=== PATIENT | female | born 1940 | race Caucasian/White ===

== ENCOUNTER 2016-07-27 06:43 | Inpatient (IN) ==
[2016-07-27] MEDS ORDERED: Ondansetron 4 MG/2 ML VIAL IVP ONE (07:07)
--- NOTE | 2016-07-27 07:18 | Emergency Department Note ---
Disposition Condition: Fair Referrals: Britany Forrest MD [Primary Care Provider] - Forms: ED Satisfaction Letter Fall HPI - General Chief Complaint: ED Fall Stated Complaint: R hip pain/fall Time Seen by Provider: 07/27/16 06:48 Source: patient, EMS Mode of arrival: private vehicle Limitations: no limitations Nursing Notes Reviewed: Yes Vital Signs Reviewed: Yes - History of Present Illness HPI Narrative: 76-year-old female patient presents to the emergency department status post fall with complaint of right hip pain. Patient states that she was attempting to get out of bed in order to go to the kitchen to get a glass of water when she tripped falling on her right hip. She denies any known loss of consciousness, however is unsure if she did strike her head. Patient states that she has not been able to walk since this injury and called EMS to be brought to the emergency department for further evaluation. She denies taking any blood thinners besides the baby aspirin daily. Patient had a previous fall 8 months ago where she fractured her left hip. She denies any upper extremity pain. She denies any chest pain or shortness of breath. She denies any fever, chills, nausea or vomiting. She was not dizzy or lightheaded prior to her fall. 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 From: standing, out of bed Fall Witnessed: no Place Fall Occurred: home Loss of Consciousness: unsure Prolonged Down Time?: no Symptoms Prior to Fall: none Context: tripped/slipped Location of injury: head, hip Location of injury - extremities: Right: hip Severity: severe Quality: aching Associated symptoms (after fall): Reports: denies - Related Data Home Medications Medication Instructions Recorded Confirmed Citalopram [CeleXA] 20 mg PO HS 01/15/16 01/15/16 Levothyroxine [Synthroid] 50 mcg PO 0630 01/15/16 01/15/16 Metoprolol [Lopressor] 50 mg PO BID 01/15/16 01/15/16 Calcium Carbonate/Vitamin D3 1 each PO DAILY 07/27/16 07/27/16 [Calcium 500 + Vit D Caplet] Cholecalciferol (D-3) [Vitamin D] 2,000 unit PO DAILY 07/27/16 07/27/16 HYDROcodone/Acet 5/325 mg [[place] 1 tab PO BID PRN 07/27/16 07/27/16 5-325 mg] Omeprazole [PriLOSEC] 40 mg PO DAILY 07/27/16 07/27/16 Simvastatin [Zocor] 40 mg PO DAILY 07/27/16 07/27/16 Previous Rx's Medication Instructions Recorded Aspirin Enteric Coated [Aspirin EC] 325 mg PO BID #60 tablet. 01/20/16 amLODIPine [Norvasc] 5 mg PO DAILY #30 tablet 01/20/16 Allergies Allergy/AdvReac Type Severity Reaction Status Date / Time Oxycodone [From Percocet] Allergy Itching Verified 07/27/16 08:46 All systems ED: reviewed and negative except as stated. Constitutional: Denies: fever, chills Cardiovascular: Denies: chest pain, palpitations, dyspnea on exertion Respiratory: Denies: cough, dyspnea Gastrointestinal: Denies: abdominal pain, nausea, vomiting Musculoskeletal: Reports: arthralgia. Denies: back pain, neck pain Integumentary: Denies: rash, abrasion, lesions Neurological: Reports: headache Psychiatric: Denies: anxiety, depression, suicidal thoughts, homicidal thoughts Fall PMH - Past Medical History Medical history: Reports: diabetes, hyperlipidemia, hypertension Surgical history: Reports: hysterectomy Psychiatric history: Reports: no psych history - Social History Smoking Status: Never smoker Alcohol use: Reports: none Drug use: Reports: none Physical Exam - General Limitations: no limitations General appearance: alert, in no apparent distress - Head Head exam: atraumatic, normocephalic, normal inspection - Eye Eye exam: Present: normal appearance, PERRL - Neck Neck exam: Present: normal inspection, full ROM, trachea midline. Absent: tenderness, lymphadenopathy - Chest Chest inspection: Present: normal inspection, symmetric chest wall rise - Respiratory Respiratory exam: Present: normal lung sounds bilaterally. Absent: respiratory distress - Cardiovascular Cardiovascular exam: Present: regular rate, normal rhythm, normal heart sounds - Expanded Lower Extremity Exam Hip/Pelvis exam: Present: tenderness, internal rotation, shortening Gait: not tested/not observed - Back Exam Back exam: Present: normal inspection, full ROM. Absent: tenderness - Neurological Exam Neurological exam: Present: alert, oriented X3 - Psychiatric Psychiatric exam: Present: normal affect, normal mood - Skin Skin exam: Present: warm, dry, intact, normal color Course Vital Signs Temperature 98.9 F 07/27/16 06:45 Pulse Rate 81 07/27/16 06:45 Respiratory Rate 18 07/27/16 06:45 Blood Pressure 158/82 07/27/16 06:45 O2 Sat by Pulse Oximetry 99 07/27/16 06:45 Temperature 98.9 F 07/27/16 06:45 Pulse Rate 81 07/27/16 06:45 Respiratory Rate 18 07/27/16 06:45 Blood Pressure 158/82 07/27/16 06:45 O2 Sat by Pulse Oximetry 99 07/27/16 06:45 Oxygen Delivery Oxygen Delivery Room Air Fall - Radiology Data Radiology results reviewed: Yes I reviewed the patient's radiology results.
[2016-07-27] MEDS ORDERED: *HR* HYDROmorphone (PF) 1 MG/ML SYRINGE IVP ONE (07:51)
--- NOTE | 2016-07-27 08:18 | Emergency Department Note ---
Disposition Clinical Impression: Fracture of hip, right, closed Qualifiers: Encounter type: initial encounter Qualified Code(s): S72.001A - Fracture of unspecified part of neck of right femur, initial encounter for closed fracture Disposition: Admitted As Inpatient Condition: Fair Referrals: Britany Forrest MD [Primary Care Provider] - Forms: ED Satisfaction Letter General Adult HPI - General Chief complaint: ED Fall Stated complaint: R hip pain/fall Time Seen by Provider: 07/27/16 06:48 Source: patient, EMS Mode of arrival: private vehicle Limitations: no limitations Nursing Notes Reviewed: Yes Vital Signs Reviewed: Yes - History of Present Illness Pain Scale: 10 - Related Data Home Medications Medication Instructions Recorded Confirmed Citalopram [CeleXA] 20 mg PO HS 01/15/16 07/27/16 Levothyroxine [Synthroid] [place] [address]/15/16 07/27/16 Metoprolol [Lopressor] 50 mg PO BID 01/15/16 07/27/16 Calcium Carbonate/Vitamin D3 1 each PO DAILY 07/27/16 07/27/16 [Calcium 500 + Vit D Caplet] Cholecalciferol (D-3) [Vitamin D] 2,000 unit PO DAILY 07/27/16 07/27/16 HYDROcodone/Acet 5/325 mg [[place] 1 tab PO BID PRN 07/27/16 07/27/16 5-325 mg] Omeprazole [PriLOSEC] 40 mg PO DAILY 07/27/16 07/27/16 Simvastatin [Zocor] 40 mg PO DAILY 07/27/16 07/27/16 Previous Rx's Medication Instructions Recorded Aspirin Enteric Coated [Aspirin EC] 325 mg PO BID #60 tablet. 01/20/16 amLODIPine [Norvasc] 5 mg PO DAILY #30 tablet 01/20/16 Allergies Allergy/AdvReac Type Severity Reaction Status Date / Time Oxycodone [From Percocet] Allergy Itching Verified 07/27/16 08:46 Constitutional: Denies: fever, chills Cardiovascular: Denies: chest pain, palpitations, dyspnea on exertion Respiratory: Denies: cough, dyspnea Gastrointestinal: Denies: abdominal pain, nausea, vomiting Musculoskeletal: Reports: arthralgia. Denies: back pain, neck pain Integumentary: Denies: rash, abrasion, lesions Neurological: Reports: headache Psychiatric: Denies: anxiety, depression, suicidal thoughts, homicidal thoughts Past Medical History - Past Medical History Medical history: Reports: diabetes, hyperlipidemia, hypertension Surgical history: Reports: hysterectomy Psychiatric history: Reports: no psych history - Social History Smoking Status: Never smoker Smokeless Tobacco Status: No Alcohol use: Reports: none Drug use: Reports: none Physical Exam - General Limitations: no limitations General appearance: alert, in no apparent distress Course Vital Signs Temperature 98.9 F 07/27/16 06:45 Pulse Rate 81 07/27/16 06:45 Respiratory Rate 18 07/27/16 06:45 Blood Pressure 158/82 07/27/16 06:45 O2 Sat by Pulse Oximetry 99 07/27/16 06:45 Temperature 98.9 F 07/27/16 06:45 Pulse Rate 74 07/27/16 08:47 Respiratory Rate 18 07/27/16 08:47 Blood Pressure 140/80 07/27/16 08:47 O2 Sat by Pulse Oximetry 96 07/27/16 08:47 Oxygen Delivery Oxygen Delivery Room Air Medical Decision Making - MDM Narrative Medical decision making narrative: I examined this patient and my medical decision-making was reviewed with the PARKING LOT LABORER/PA/Advanced Practice Nurse/Resident Physician. I agree with the documented findings, disposition and treatment plan as described except to the extent set forth below. Patient comes in today and was seen by the DAVID Guevara, I agree with his evaluation and management plan, I supervised the patient's stay. Patient had a fall and she fractured her right hip. There is also a question of a fracture of the T spine abut pt has no pain there. We will discuss with orthopedics, admitted to the hospitalist and she is in agreement with this plan. Pain is controlled at this time no neuro deficits. - Lab Data Result diagrams: 07/27/16 09:21 07/27/16 09:21 Lab Results 07/27/16 07/27/16 07/27/16 Range/Units 09:21 09:21 09:21 WBC 11.2 H (4.3-11.1) K/mcL RBC 4.14 (3.82-4.97) M/mcL Hgb 12.7 (11.5-15.4) g/dL Hct 37.4 (35.3-44.9) % MCV 90.3 (83.0-100.0) fL MCH 30.7 (28.0-33.3) pg MCHC 34.0 (31.6-35.5) g/dL RDW 12.9 (11.5-14.5) % Plt Count 207 (140-400) K/mcL MPV 10.8 (9.4-12.4) fL Immature Gran % 0.4 (0-4) % Seg Neutrophils % 84.3 % Lymphocytes % 8.9 % Monocytes % 5.9 % Eosinophils % 0.2 % Basophils % 0.3 % Neutrophils # 9.5 H (1.6-8.9) K/mcL Lymphocytes # 1.0 (0.6-4.6) K/mcL Monocytes # 0.7 (0.0-1.3) K/mcL Eosinophils # 0.0 (0.0-0.6) K/mcL Basophils # 0.0 (0.0-0.2) K/mcL PT 11.0 (9.4-12.1) Seconds INR 1.0 APTT 25.8 L (26.0-36.0) Seconds Sodium 141 (136-145) mEq/L Potassium 3.3 L (3.5-4.5) mEq/L Chloride 107 (98-109) mEq/L Carbon Dioxide 24 (19-29) mEq/L BUN 25 H (7-20) mg/dL Creatinine 1.23 H (0.57-1.11) mg/dL Est GFR ( Amer) 51 L (> 60) Est GFR (Non-Af Amer) 42 L (> 60) BUN/Creatinine Ratio 20 (6-26) Glucose 208 H (70-99) mg/dL Calculated Osmolality 302 H (280-300) Calcium 9.9 (8.6-10.8) mg/dL Urine Color (Yellow) Urine Clarity (Clear) Urine pH (5.0-8.0) pH Units Ur Specific [place] (1.010-1.025) Urine Protein (Neg-Trace) mg/dL Urine Glucose (UA) (Normal) mg/dL Urine Ketones (Negative) mg/dL Urine Blood (Negative) Urine Nitrite (Negative) Urine Bilirubin (Negative) Urine Urobilinogen (Normal) mg/dL Ur Leukocyte Esterase (Negative) Urine Microscopic RBC (0-3) per hpf Urine Microscopic WBC (0-3) per hpf Ur Squamous Epith Cells (None-Few) per lpf Urine Bacteria (None-Few) per hpf Hyaline Casts (None-Few) per lpf Ur Culture Indicated? (NO) 07/27/16 Range/Units 09:57 WBC (4.3-11.1) K/mcL RBC (3.82-4.97) M/mcL Hgb (11.5-15.4) g/dL Hct (35.3-44.9) % MCV (83.0-100.0) fL MCH (28.0-33.3) pg MCHC (31.6-35.5) g/dL RDW (11.5-14.5) % Plt Count (140-400) K/mcL MPV (9.4-12.4) fL Immature Gran % (0-4) % Seg Neutrophils % % Lymphocytes % % Monocytes % % Eosinophils % % Basophils % % Neutrophils # (1.6-8.9) K/mcL Lymphocytes # (0.6-4.6) K/mcL Monocytes # (0.0-1.3) K/mcL Eosinophils # (0.0-0.6) K/mcL Basophils # (0.0-0.2) K/mcL PT (9.4-12.1) Seconds INR APTT (26.0-36.0) Seconds Sodium (136-145) mEq/L Potassium (3.5-4.5) mEq/L Chloride (98-109) mEq/L Carbon Dioxide (19-29) mEq/L BUN (7-20) mg/dL Creatinine (0.57-1.11) mg/dL Est GFR ( Amer) (> 60) Est GFR (Non-Af Amer) (> 60) BUN/Creatinine Ratio (6-26) Glucose (70-99) mg/dL Calculated Osmolality (280-300) Calcium (8.6-10.8) mg/dL Urine Color Yellow (Yellow) Urine Clarity Clear (Clear) Urine pH 7.5 (5.0-8.0) pH Units Ur Specific [place] 1.021 (1.010-1.025) Urine Protein Trace (Neg-Trace) mg/dL Urine Glucose (UA) Normal (Normal) mg/dL Urine Ketones Trace H (Negative) mg/dL Urine Blood Negative (Negative) Urine Nitrite Negative (Negative) Urine Bilirubin Negative (Negative) Urine Urobilinogen Normal (Normal) mg/dL Ur Leukocyte Esterase Negative (Negative) Urine Microscopic RBC 0-3 (0-3) per hpf Urine Microscopic WBC 0-3 (0-3) per hpf Ur Squamous Epith Cells Moderate H (None-Few) per lpf Urine Bacteria None Seen (None-Few) per hpf Hyaline Casts None Seen (None-Few) per lpf Ur Culture Indicated? NO (NO)
[2016-07-27 09:31] LABS: Basophils % 0.3 %; Eosinophils % 0.2 %; Hematocrit 37.4 % (35.3-44.9); Hemoglobin 12.7 g/dL (11.5-15.4); Immature Granulocytes % 0.4 % (0-4); Lymphocytes % 8.9 %; Mean Corpuscular Hemoglobin 30.7 pg (28.0-33.3); Mean Corpuscular Volume 90.3 fL (83.0-100.0); Mean Platelet Volume 10.8 fL (9.4-12.4); Monocytes # 0.7 K/mcL (0.0-1.3); Monocytes % 5.9 %; Neutrophils # 9.5 K/mcL (1.6-8.9); Platelet Count 207 K/mcL (140-400); Red Blood Count 4.14 M/mcL (3.82-4.97); Red Cell Distribution Width 12.9 % (11.5-14.5); Segmented Neutrophils % 84.3 %
--- NOTE | 2016-07-27 09:36 | Orthopedic Consult Note ---
Date of Encounter: 07/27/16 Time of Encounter: 09:34 Assessment and Plan (1) Subcapital fracture of right femur Current Visit: Yes Status: Acute Patient is doing well, pain controlled. Stable. XRAYS reviewed with patient and family. Because of pain and limitations with mobility; surgical optimization recommended. Plan for a Right Hip Hemiarthroplasty today with . Consent was reviewed, explained and signed by patient with family in the room. All questions were answered. She had a Left Hip Hemiarthroplasty in December, and recovered very well with this. NPO. Continue pain control. DVT prophylaxis with EPCDs. Bedrest, NWB to Right side for now. Catheter needed. Admitted to hospitalist for pre-operative management. No significant cardiac history. History of smoking. 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 Forrest is a 76 year old female, presents to the emergency department status post fall with complaint of right hip pain. Patient states that she was attempting to get out of bed in order to go to the kitchen to get a glass of water when she tripped falling on her right hip. She denies any known loss of consciousness, however is unsure if she did strike her head. Patient states that she has not been able to walk since this injury and called EMS to be brought to the emergency department for further evaluation. She denies taking any blood thinners besides the baby aspirin daily. Patient had a previous fall 7 months ago, had a Left Hip Hemiarthroplasty and Wrist ORIF, performed by and . Progressing well and tolerated these procedures well with no complications. She denies any upper extremity pain. She denies any chest pain or shortness of breath. She denies any fever, chills , nausea or vomiting. She was not dizzy or lightheaded prior to her fall. Past Med Surg Social Fam HX - Past Medical History Medical history: diabetes, hyperlipidemia, hypertension Psychiatric history: no psych history - Past Surgical History Surgical History: hysterectomy - Social History Smoking Status: Never smoker Smokeless Tobacco Status: No Alcohol use: none Drug use: none - Family History Mother Living Status: Father Living Status: Hx Family Cancer: Yes Medications and Allergies Citalopram [CeleXA] 20 mg PO HS 01/15/16 [History] Levothyroxine [Synthroid] 50 mcg PO 0630 01/15/16 [History] Metoprolol [Lopressor] 50 mg PO BID 01/15/16 [History] Aspirin Enteric Coated [Aspirin EC] 325 mg PO BID #60 tablet. 01/20/16 [Rx] amLODIPine [Norvasc] 5 mg PO DAILY #30 tablet 01/20/16 [Rx] Calcium Carbonate/Vitamin D3 [Calcium 500 + Vit D Caplet] 1 each PO DAILY [History] Cholecalciferol (D-3) [Vitamin D] 2,000 unit PO DAILY 07/27/16 [History] HYDROcodone/Acet 5/325 mg [[place] 5-325 mg] 1 tab PO BID PRN 07/27/16 [History] Omeprazole [PriLOSEC] 40 mg PO DAILY 07/27/16 [History] Simvastatin [Zocor] 40 mg PO DAILY 07/27/16 [History] Allergies Oxycodone [From Percocet] Allergy (Verified 07/27/16 08:46) Itching All Systems Reviewed: A 10-system review of systems was performed and is negative for pertinent findings except as documented above in the HPI. - Constitutional Constitutional: as per HPI, frequent falls - Cardiovascular Cardiovascular: as per HPI, no chest pain, no dyspnea, no syncope - Respiratory Respiratory: as per HPI, dyspnea on exertion, no cough, no dyspnea - Musculoskeletal Musculoskeletal: as per HPI Physical Exam - Constitutional Vitals: Temp Pulse Resp BP Pulse Ox 98.9 F 74 18 140/80 96 07/27/16 06:45 07/27/16 08:47 07/27/16 08:47 07/27/16 08:47 07/27/16 08:47 - Fracture right hip Appearance: swelling, other (RLE shortened and ER) Distal extremity neurovascularly intact: Yes Proximal joint involvement: No Distal joint involvement: No Results - Labs Labs: Vitals Normal, awaiting labs. XRAYS: Right minimally displaced right subcapital fracture. CT Head: reviewed - Diagnostic results Hip x-ray: report reviewed, image reviewed Consult Discharge Plan - Plan Referrals: Britany Forrest MD [Primary Care Provider] -
[2016-07-27 09:46] LABS: Calcium 9.9 mg/dL (8.6-10.8); Potassium 3.3 mEq/L (3.5-4.5)
--- NOTE | 2016-07-27 09:48 | Internal Med History&Physical ---
Date of Encounter: 07/27/16 Time of Encounter: 09:15 Assessment and Plan (1) Subcapital fracture of right femur Current visit: Yes Status: Acute Patient found to have right subcapital femoral fracture on XR. This appears to be a mechanical fall. No signs of CVA/TIA, anemia, or infection. No history of significant heart disease, other than hypertension. No history of lung disease. Will clear patient for surgery for repair per ortho. Leukocytosis seen in patient likely reactive given patient trauma Consult to orthopedics Obtain 12 lead EKG UA Continue to monitor labs Pain control with Dilaudid 1 mg Q4 prn NPO for surgery IVF at 75 ml/hr Zofran Pantoprazole (2) HTN (hypertension) Current visit: No Status: Chronic Continue home medications when patient taking PO Amlodipine at 5 mg daily metoprolol at 50 mg daily Qualifiers: Hypertension type: essential hypertension Qualified Code(s): I10 - Essential (primary) hypertension (3) Chronic kidney disease Current visit: Yes Status: Acute Patient GFR slightly worse today than her baseline, but not significantly so. IVF with NS at 75 ml/hr avoid nephrotoxic agents continue to monitor renal function with daily labs Qualifiers: Chronic kidney disease stage: stage 3 (moderate) Qualified Code(s): N18.3 - Chronic kidney disease, stage 3 (moderate) (4) Elevated blood sugar Current visit: Yes Status: Acute Patient has a history of being pre-diabetic and on no home medications. She presents with an elevated blood sugar this morning. This could be due to this being a random blood sugar sample or a reaction given her recent trauma. 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 She has been on synthroid since then. Will continue patient home dose synthroid at 50 mcg daily (6) S/P hip hemiarthroplasty Current visit: No Status: Acute Patient continues to have chronic pain following her hip repair and broken wrist in late December last year for which she takes [place] at home. Will continue pain control for new right hip fracture as above (7) DVT prophylaxis Current visit: Yes Status: Acute EPCDs Internal Medicine - H&P: HPI Chief complaint: Fall and right hip fracture Admitted From: Home Plans for Post Hospital Care: Transfer Residential Facility History of present illness: Ms. Forrest is a 76 year old female who presents to [facility] this morning after suffering a right hip fracture. She reports that she was waking up from bed and fell next to her bed this morning and had severe right hip pain. She reports that she thinks it was a mechanical fall and does not report losing consciousness, but states that she is unable to remember the fall. Her son reports that this exact same scenario has happened before, resulting in her breaking her left hip previously (that she then needed repairs). She denies having any loss of consciousness or hitting her head. She denies having been sick recently, feeling faint, temporary losses of consciousness recently, or any numbness/tingling. She states that prior to this event she was feeling well without any recent illnesses. 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) Psychiatric history: no psych history - Past Surgical History Surgical History: breast surgery (right mastectomy), hysterectomy, orthopedic, other (left hip hemiarthoplasty), thyroidectomy - Social History Smoking Status: Never smoker Smokeless Tobacco Status: No Alcohol use: none Drug use: none - Family History Mother Living Status: Father Living Status: Hx Family Cancer: Yes Internal Medicine - H&P: Meds Citalopram [CeleXA] 20 mg PO HS 01/15/16 [History] Levothyroxine [Synthroid] 50 mcg PO 0630 01/15/16 [History] Metoprolol [Lopressor] 50 mg PO BID 01/15/16 [History] Aspirin Enteric Coated [Aspirin EC] 325 mg PO BID #60 tablet. 01/20/16 [Rx] amLODIPine [Norvasc] 5 mg PO DAILY #30 tablet 01/20/16 [Rx] Calcium Carbonate/Vitamin D3 [Calcium 500 + Vit D Caplet] 1 each PO DAILY [History] Cholecalciferol (D-3) [Vitamin D] 2,000 unit PO DAILY 07/27/16 [History] HYDROcodone/Acet 5/325 mg [[place] 5-325 mg] 1 tab PO BID PRN 07/27/16 [History] Omeprazole [PriLOSEC] 40 mg PO DAILY 07/27/16 [History] Simvastatin [Zocor] 40 mg PO DAILY 07/27/16 [History] Allergies Oxycodone [From Percocet] Allergy (Verified 07/27/16 08:46) Itching - Constitutional Constitutional: falls, no anorexia, no chills, no fatigue, no fever(s), no weakness - EENT Eyes: no blurry vision, no diplopia, no loss of vision - Cardiovascular Cardiovascular ROS IM: no chest pain, no dyspnea, no lightheadedness - Respiratory Respiratory: no cough, no dyspnea, no pain on inspiration - Gastrointestinal Gastrointestinal: abdominal pain (mild, chronic), diarrhea (chronic), no constipation, no hematochezia, no melena, no nausea, no vomiting - Genitourinary Genitourinary: no dysuria, no hematuria - Musculoskeletal Musculoskeletal ROS IM: as per HPI, other (right hip pain), no neck pain, no numbness, no tingling - Neurological Neurological ROS: disequilibrium (mild, chronic), dizziness (mild, chronic), headache(s), memory loss (mild, chronic), no focal weakness, no loss of vision, no tingling, no weakness - Endocrine Additional comments: on synthroid - Constitutional Vitals: Temp Pulse Resp BP Pulse Ox 98.9 F 74 18 140/80 96 07/27/16 06:45 07/27/16 08:47 07/27/16 08:47 07/27/16 08:47 07/27/16 08:47 Exam: General: Cooperative, pleasant, no acute distress, alert and oriented 3, answers questions appropriately HEENT: Normocephalic, atraumatic, neck supple, to midline cervical/upper thoracic tenderness, trachea midline, Conjunctiva pink, sclera anicteric, EOMI , PERRL, oral mucosa moist, no orophargeal erythema or exudates Respiratory: No accessory muscle usage, clear to auscultation bilaterally, no wheezes/rhonchi/rales appreciated Cardiovascular: Regular rate and rhythm, S1 and S2 present, no murmurs/rubs/ gallops/clicks appreciated GI/abdominal: Nondistended, mild tenderness to palpation, soft, normal bowel sounds, no peritoneal signs Extremities: No calf tenderness, noncyanotic, no pedal edema appreciated, warm, lower extremity pulses palpable and symmetrical, increased fullness over right hip, no ecchymosis or hematoma observed Neurological: Alert and oriented 3, no facial droop, no focal deficits, sensation to light touch intact in b/l LE, CN 2-12 intact, Skin: Dry, intact, normal color Internal Med - H&P Results - Labs CBC & Chem 7: 07/27/16 09:21 07/27/16 09:21 Labs: Short CBC 07/27/16 Range/Units 09:21 WBC 11.2 H (4.3-11.1) K/mcL Hgb 12.7 (11.5-15.4) g/dL Hct 37.4 (35.3-44.9) % Plt Count 207 (140-400) K/mcL Neutrophils # 9.5 H (1.6-8.9) K/mcL - Impressions ITS Impressions Cervical Spine CT 07/27/16 07:07 IMPRESSION: No acute abnormality of the cervical spine. 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 Mild concavity of the superior endplate of T2 which is new from chest CT 07/02/2014, but age indeterminate. Correlation for point tenderness is recommended. If there is point tenderness at this level, then MRI could be obtained for further evaluation. D/ / Chiquis Rodriguez MD / Chiquis Rodriguez MD Interpreting Provider: Chiquis Rodriguez MD Head CT 07/27/16 07:07 IMPRESSION: No acute intracranial abnormality. D/ / Virgil Pisano MD / Virgil Pisano MD Interpreting Provider: Virgil Pisano MD Hip X-Ray 07/27/16 07:07 IMPRESSION: Acute mildly displaced subcapital right femoral neck fracture. D/ / 07/27/2016 08:59:42 Hali Sauceda MD / Gayatri Oviedo Interpreting Provider: Hali Sauceda MD
[2016-07-27] MEDS ORDERED: Ondansetron 4 MG/2 ML VIAL IVP PRN ×3 (09:52→19:27)
[2016-07-27] MEDS ORDERED: Naloxone 0.4 MG/ML INJ IVP PRN ×2 (09:52→19:27)
[2016-07-27] MEDS ORDERED: *HR* HYDROmorphone (PF) 1 MG/ML SYRINGE IVP PRN ×3 (09:52→19:27)
[2016-07-27] MEDS ORDERED: *HR* Morphine 2 MG/ML SYRINGE IVP PRN (09:52)
[2016-07-27 09:57] LABS: Activated Partial Thrombo Time 25.8 Seconds (26.0-36.0)
[2016-07-27] MEDS ORDERED: 0.9 % Sodium Chloride 1,000 ML IVC SCH ×2 (10:00→19:27)
[2016-07-27] MEDS ORDERED: Sennosides/Docusate Sodium TABLET PO PRN ×2 (10:01→19:27)
[2016-07-27] MEDS ORDERED: Potassium Chloride 20 MEQ, Lidocaine 1% 2 ML in D5% in Water 250 ML IVPB ONE (10:32)
[2016-07-27 11:08] LABS: Bilirubin,Urine Negative (Negative); Blood,Urine Negative (Negative); Clarity,Urine Clear (Clear); Color,Urine Yellow (Yellow); Glucose,Urine (UA) Normal (Normal); Ketones,Urine Trace mg/dL (Negative); Leukocyte Esterase,Urine Negative (Negative); Nitrite,Urine Negative (Negative); PH,Urine 7.5 pH Units (5.0-8.0); Protein,Urine Trace mg/dL (Neg-Trace); Specific Gravity,Urine 1.021 (1.010-1.025); Urobilinogen,Urine Normal (Normal)
[2016-07-27 11:10] LABS: Bacteria,Urine None Seen per hpf (None-Few); Hyaline Casts,Urine None Seen per lpf (None-Few); RBC,Urine 0-3 per hpf (0-3); Squamous Epithelial Cell,Urine Moderate per lpf (None-Few); WBC,Urine 0-3 per hpf (0-3)
--- NOTE | 2016-07-27 11:16 | Anesthesia Evaluation PreOp ---
Date of Encounter: 07/27/16 Time of Encounter: 11:12 - Past History Planned Operation: r hip tima; hx per chart/fam Cardiac History: HTN, Hyperlipidemia, Other (echo 2014: ef 55, nl rv, no valve dysfct) Pulmonary History: Former smoker Other Medical History: Renal (ckd), Thyroid, GERD, Other (breast ca) Anesthesia History: No Prior Anesthetic Complications, Past Anesthesia (thyroid , hip tima, r mastectomy, hysterect) Alcohol Use: none Drug use: none Medications and Allergies Citalopram [CeleXA] 20 mg PO HS 01/15/16 [History] Levothyroxine [Synthroid] 50 mcg PO 0630 01/15/16 [History] Metoprolol [Lopressor] 50 mg PO BID 01/15/16 [History] Aspirin Enteric Coated [Aspirin EC] 325 mg PO BID #60 tablet. 01/20/16 [Rx] amLODIPine [Norvasc] 5 mg PO DAILY #30 tablet 01/20/16 [Rx] Calcium Carbonate/Vitamin D3 [Calcium 500 + Vit D Caplet] 1 each PO DAILY [History] Cholecalciferol (D-3) [Vitamin D] 2,000 unit PO DAILY 07/27/16 [History] HYDROcodone/Acet 5/325 mg [[place] 5-325 mg] 1 tab PO BID PRN 07/27/16 [History] Omeprazole [PriLOSEC] 40 mg PO DAILY 07/27/16 [History] Simvastatin [Zocor] 40 mg PO DAILY 07/27/16 [History] Allergies Oxycodone [From Percocet] Allergy (Verified 07/27/16 08:46) Itching - Meds/Allergy Pre-op Review Medications Reviewed: Yes Allergies Reviewed: Yes Beta Blockers on Current Med List: Yes If Beta Blockers taken, Date/Time (Last Dose taken): metoprolol Anesthesia Results - Labs 07/27/16 09:21 07/27/16 09:21 - Imaging EKG: report reviewed (sr, pvc, lvh) Additional studies: head cT neg Anesthesia Exam Vital Signs/O2 Sat/Glucose, Most Current Pulse Resp BP Pulse Ox 07/27/16 08:47 74 18 140/80 96 Height: 1.57 Weight: 63 NPO (# of Hours): >8 - HEENT Pupil (Motor): Pupils equal, EOMI - TESTER WASTE DISPOSAL LEAKAGE LOC: Confused, Disoriented TESTER WASTE DISPOSAL LEAKAGE Motor: Deficit RUE, Deficit LUE, Deficit RLE, Deficit LLE, Deficit Face TESTER WASTE DISPOSAL LEAKAGE Sensory: Deficit: RUE, LUE, RLE, LLE, Face - Cardiac Rhythm: Regular Murmur: None - Pulmonary Breath Sounds: bilateral Clear Respiratory Effort: Symmetrical Anesthesia Assess/Plan ASA Score: 4 Modified [place] Scale for Level of Consciousness: Anixous, agitated or restless Anesthetic Plan: General Monitoring Plan: Standard Monitors Recovery Plan: PACU
--- NOTE | 2016-07-27 12:34 | Event Note ---
Date of Encounter: 07/27/16 Time of Encounter: 12:31 Patient seen and examined with bilingual medical receptionist. She presents today after a fall, does not recall clear circumstances of the fall but thinks it is probably mechanical. The patient has a right hip fracture. She will go for surgery. We were asked to see the patient for preoperative clearance. Patient functional capacity is poor. she can walk only one block with her walker. She has multiple clinical predictors including hypertension, chronic kidney disease stage III and borderline diabetes. Orthopedic surgeries are intermediate cardiac risk surgeries. Because of the poor functional capacity and multiple clinical predictors patient will be at moderate risk for perioperative cardiac complications. Patient had a coronary angiogram in 2009 showed normal coronary' s. Patient does not require any further preoperative cardiac testing prior to surgery. Gentle hydration. Check urine analysis. She is full code.
[2016-07-27] MEDS ORDERED: *HR* Labetalol 100 MG/20 ML MDV IVP PRN (17:29)
--- NOTE | 2016-07-27 17:36 | Orthopedic Operative Note ---
Date of procedure: 07/27/16 Pre-op diagnosis: right femoral neck fracture Post-op diagnosis: same Procedure: Procedure: Right hip hemiarthroplasty Estimated blood loss: 200 cc Hardware: Metal replacement Biomet bipolar: 13 stem 28+6 head 45 bipolar Procedural Notes: His placed femoral neck fracture Operative procedure: The patient was brought to the operating room and placed on the operating room table. After general anesthesia was administered the patient was placed in the lateral decubitus position with the operative leg up. All pressure points were padded appropriately and the head was stabilized in the neutral position. The operative extremity was prepped and draped in the sterile surgical fashion patient received IV antibiotic prior to skin incision. A standard posterior approach is made to the operative hip, the incision was made through the skin and subcutaneous tissue hemostasis was obtained with Bovie cautery. Using careful sharp dissection the fascia was identified and incised exposing the external rotators. The external rotators were released off the greater trochanter and tagged with #2 FiberWire suture. The capsule was T'd open the femoral head was removed. The femoral neck cut was made at the appropriate level. The hip was brought into internal rotation and prepared with the jukebox checker followed by the canal finder followed by broaching process in 20 degrees anteversion. It was broached up to the appropriate size 13. The femoral implant was impacted in place in 20 degrees of anteversion. Trial reduction found the hip to be stable with the +6 with 45 bipolar. The trials were removed and the real implants were impacted in place. The hip was reduced, the hip had full extension and full flexion of the knee was in full extension.the patient had apparent equal leg length. The hip had excellent stability with forward flexion to 90 degrees adduction of 30 degrees and internal rotation of 60 degrees. The hip had no shuck. The hip was irrigated out with 2 L of pulse irrigation. The external rotators were reattached to drill holes in the greater trochanter. Fascia was closed with #2 PDS suture. The deep tissue was irrigated and closed deep with #1 PDS suture superficially with 0 PDS suture and skin was closed with sammi. The patient was placed in a sterile dressing and abduction pillow. The patient was extubated and transferred to the recovery room in stable condition. Anesthesia: GETSusana Surgeon: Prasanth Freeman Laryngologist: Shalonda Saunders Condition: stable Disposition: PACU
[2016-07-27] MEDS ORDERED: *HR* Propofol 200 MG/20 ML VIAL IVP ONE (17:58)
[2016-07-27] MEDS ORDERED: Lidocaine -MPF 2% 2 ML VIAL ONE (17:58)
[2016-07-27] MEDS ORDERED: Ondansetron 4 MG/2 ML VIAL ONE (17:58)
[2016-07-27 18:53] LABS: Hematocrit 36.6 % (35.3-44.9); Hemoglobin 11.8 g/dL (11.5-15.4)
--- NOTE | 2016-07-27 18:53 | Anesthesia Evaluation Post Op ---
Date of Encounter: 07/27/16 Time of Encounter: 18:53 - Vital Signs Vital Signs: Vital Signs/O2 Sat/Glucose, Most Current Temp Pulse Resp BP Pulse Ox 07/27/16 18:45 97.9 F 65 16 155/77 07/27/16 18:35 97.5 F L 68 16 150/88 95 07/27/16 18:25 62 16 137/73 96 07/27/16 18:15 64 16 140/84 97 07/27/16 18:05 98.0 F 61 16 126/101 95 - Lungs Lungs: Clear Ascult./Percussion - Airway Airway: Non-obstructed - Cardiovascular Regular Rate - Mental Status Mental Status: Asleep with brisk response to light stimulation - Pain Pain Scale: 2 - Nausea Vomiting Nausea Vomiting: Not Present - Hydration Hydration: NPO - Discharge PostOp Status: Transfer Patient to floor
[2016-07-27] MEDS ORDERED: Ringers Solution, Lactated 1,000 ML IVC SCH (19:27)
[2016-07-27] MEDS ORDERED: Sennosides 8.6 MG TABLET PO PRN (19:27)
[2016-07-27] MEDS ORDERED: Temazepam 15 MG CAPSULE PO PRN (19:27)
[2016-07-27] MEDS ORDERED: MOM Conc 10 ML UD.LIQ PO PRN (19:27)
[2016-07-27] MEDS: Ascorbic Acid 500 MG TABLET PO SCH (20:12)
[2016-07-27] MEDS: *HR* HYDROcodone/Acet 5/325 mg TABLET PO PRN (20:13)
[2016-07-28] MEDS: ceFAZolin 2,000 MG in D5% in Water 100 ML IVPB SCH ×2 (00:24→08:25)
[2016-07-28] MEDS ORDERED: Ringers Solution, Lactated 500 ML IVC ONE (04:17)
[2016-07-28] MEDS: Ringers Solution, Lactated 1,000 ML IVC SCH ×2 (05:33→18:27)
[2016-07-28 05:38] LABS: Hematocrit 29.5 % (35.3-44.9); Hemoglobin 10.1 g/dL (11.5-15.4)
--- NOTE | 2016-07-28 06:28 | Orthopedics Progress Note ---
Date of Encounter: 07/28/16 Time of Encounter: 06:27 Subjective Interval history: Patient was seen this morning doing well without complaints. Afebrile vital signs stable. Operative extremity: Neurovascularly intact Dressing clean dry and intact Calves nontender Assessment and plan: Continue with postoperative care Hematocrit 10.1 Objective Vital signs: Vital Signs Temp Pulse Resp BP Pulse Ox 07/28/16 03:42 99.4 F 75 16 124/73 98 07/28/16 00:36 98.9 F 73 14 113/68 96 07/27/16 22:24 98.6 F 77 16 134/69 96 07/27/16 21:15 98.4 F 78 16 111/72 95 07/27/16 20:48 98.2 F 81 14 130/76 97 07/27/16 20:22 98.6 F 68 15 137/69 99 07/27/16 19:45 97.4 F L 68 16 133/70 97 07/27/16 19:06 98.2 F 71 15 129/65 92 07/27/16 18:45 97.9 F 65 16 151/77 95 07/27/16 18:35 97.5 F L 68 16 150/88 95 07/27/16 18:25 62 16 137/73 96 07/27/16 18:15 64 16 140/84 97 07/27/16 18:05 98.0 F 61 16 126/101 95 07/27/16 13:52 97.7 F 67 16 157/90 99 07/27/16 13:13 0 F L 18 132/88 Intake and Output 07/27/16 07/27/16 07/28/16 15:59 23:59 07:59 Intake Total 0 / 0 100 / 100 Output Total 200 / 200 125 / 125 Balance 0 / 0 -200 / -200 -25 / -25 Intake: IV Fluids 100 / 100 Ancef 2,000 MG In 100 / 100 Dextrose 5% 100 ML @ 200 mls/hr IVPB Q8HR [facility] Rx#: [id number] Oral 0 / 0 0 / 0 Output: Estimated Blood Loss 200 / 200 Catheter 125 / 125 Other: Weight 63.6 kg Blood Glucose* 217 Patient Weight 07/28/16 23:59 Weight 63.6 kg - Labs CBC & BMP: 07/28/16 05:17 06/05/17 09:21 Labs: Abnormal lab results WBC 11.2 K/mcL (4.3-11.1) H 07/27/16 09:21 Hgb 10.1 g/dL (11.5-15.4) L D 07/28/16 05:17 Hct 29.5 % (35.3-44.9) L 07/28/16 05:17 Neutrophils # 9.5 K/mcL (1.6-8.9) H 07/27/16 09:21 APTT 25.8 Seconds (26.0-36.0) L 07/27/16 09:21 Potassium 3.3 mEq/L (3.5-4.5) L 07/27/16 09:21 BUN 25 mg/dL (7-20) H 07/27/16 09:21 Creatinine 1.23 mg/dL (0.57-1.11) H 07/27/16 09:21 Est GFR ( Amer) 51 (> 60) L 07/27/16 09:21 Est GFR (Non-Af Amer) 42 (> 60) L 07/27/16 09:21 Glucose 208 mg/dL (70-99) H 07/27/16 09:21 POC Glucose 156 (58-89) H 07/27/16 16:08 Calculated Osmolality 302 (280-300) H 07/27/16 09:21 Urine Ketones Trace mg/dL (Negative) H 07/27/16 09:57 Ur Squamous Epith Cells Moderate per lpf (None-Few) H 07/27/16 09:57 - VTE Documentation of Mechanical Device: Venous foot pump, device Consult Discharge Plan - Plan Referrals: Britany Forrest MD [Primary Care Provider] -
[2016-07-28] MEDS: Pantoprazole 40 MG VIAL IVP SCH (08:19)
[2016-07-28] MEDS: Cholecalciferol (D-3) 1,000 UNIT TABLET PO SCH (08:20)
[2016-07-28] MEDS: Aspirin Enteric Coated 325 MG Tablet PO SCH ×2 (08:20→21:19)
[2016-07-28] MEDS: Multivit/Ca/Min/Fe/FA 1 TAB TABLET PO SCH (08:20)
[2016-07-28] MEDS: Ascorbic Acid 500 MG TABLET PO SCH ×2 (08:20→16:42)
[2016-07-28 08:21] LABS: Basophils % 0.4 %; Eosinophils # 0.1 K/mcL (0.0-0.6); Eosinophils % 1.1 %; Hematocrit 28.8 % (35.3-44.9); Hemoglobin 9.8 g/dL (11.5-15.4); Immature Granulocytes % 0.1 % (0-4); Immature Platelets 4.6 % (1.1-6.1); Lymphocytes # 1.4 K/mcL (0.6-4.6); Lymphocytes % 16.5 %; Mean Corpuscular Hemoglobin 31.2 pg (28.0-33.3); Mean Corpuscular Volume 91.7 fL (83.0-100.0); Mean Platelet Volume 10.4 fL (9.4-12.4); Monocytes # 0.7 K/mcL (0.0-1.3); Monocytes % 7.9 %; Neutrophils # 6.1 K/mcL (1.6-8.9); Platelet Count 152 K/mcL (140-400); Red Blood Count 3.14 M/mcL (3.82-4.97); Red Cell Distribution Width 13.3 % (11.5-14.5)
[2016-07-28] MEDS: amLODIPine 5 MG TABLET PO SCH (08:21)
[2016-07-28] MEDS: *HR* HYDROcodone/Acet 5/325 mg TABLET PO PRN ×3 (08:21→18:22)
[2016-07-28 08:32] LABS: BUN/Creatinine Ratio 24 (6-26); Blood Urea Nitrogen 23 mg/dL (7-20); Carbon Dioxide 24 mEq/L (19-29); Chloride 107 mEq/L (98-109); Glucose 177 mg/dL (70-99); Osmolality,Calculated 292 (280-300); Potassium 3.7 mEq/L (3.5-4.5); Sodium 137 mEq/L (136-145); eGFR For African Americans > 60 (> 60); eGFR For Non-African Americans 58 (> 60)
[2016-07-28 08:33] LABS: Calcium 8.2 mg/dL (8.6-10.8)
[2016-07-28] MEDS ORDERED: amLODIPine 5 MG TABLET PO SCH (09:00)
[2016-07-28] MEDS ORDERED: Aspirin Enteric Coated 325 MG Tablet PO SCH (09:00)
[2016-07-28] MEDS ORDERED: Cholecalciferol (D-3) 1,000 UNIT TABLET PO SCH (09:00)
[2016-07-28] MEDS ORDERED: Pantoprazole 40 MG VIAL IVP SCH (09:00)
--- NOTE | 2016-07-28 16:45 | Internal Med Progress Note ---
Date of Encounter: 07/28/16 Time of Encounter: 16:43 - Assessment and plan (1) S/P hip hemiarthroplasty Current Visit: No Status: Acute Assessment and plan: s/p Right hip hemiarthroplasty, POD#1 management as per ortho ensure DVT prophylaxis. bedside PT/PT will need inpt. rehab on dc. (2) HTN (hypertension) Current Visit: No Status: Chronic Assessment and plan: continu ehome meds, bp stable. Qualifiers: Hypertension type: essential hypertension Qualified Code(s): I10 - Essential (primary) hypertension - Subjective Interval history: mary seen at the bedside,s/p Right hip hemiarthroplasty, POD#1 c/o pain on the right hip on movement, otherwise doing well ortho managing post op care/ - Constitutional Vitals: Temp Pulse Resp BP Pulse Ox 99.1 F 74 16 112/68 99 07/28/16 16:03 07/28/16 16:03 07/28/16 16:03 07/28/16 16:03 07/28/16 16:03 General appearance: Present: A&O X 3, no acute distress Exam: neck- supple chest- b/l clear cvs-s1 and s2, no mr/g abd-soft, non tender, bs are present ext- no edema, tender right hip Internal Medicine: Result - Labs CBC & Chem 7: 07/28/16 08:10 07/28/16 08:10 Labs: Short CBC 07/27/16 07/28/16 07/28/16 Range/Units 18:41 05:17 08:10 WBC 8.2 (4.3-11.1) K/mcL Hgb 11.8 10.1 L D 9.8 L (11.5-15.4) g/dL Hct 36.6 29.5 L 28.8 L (35.3-44.9) % Plt Count 152 (140-400) K/mcL Neutrophils # 6.1 (1.6-8.9) K/mcL BMP 07/28/16 08:10 Sodium 137 Potassium 3.7 Chloride 107 Carbon Dioxide 24 BUN 23 H Creatinine 0.94 Glucose 177 H Calcium 8.2 L D - ABG Interpretation ABG results: PT/INR, D-dimer PT 11.0 Seconds (9.4-12.1) 07/27/16 09:21 - Impressions Impressions Hip X-Ray 07/27/16 16:41 IMPRESSION: No evident complications status post right bipolar hip arthroplasty. D/ / 07/27/2016 19:22:52 Sreekanth Garrison MD / lauro Interpreting Provider: Sreekanth Garrison MD - VTE Documentation of Mechanical Device: Venous foot pump, device Consult Discharge Plan - Plan Referrals: Britany Forrest MD [Primary Care Provider] -
--- NOTE | 2016-07-28 23:41 | Electrocardiograph Report ---
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
[2016-07-29] MEDS: *HR* HYDROcodone/Acet 5/325 mg TABLET PO PRN ×3 (00:59→15:54)
[2016-07-29 06:21] LABS: Hematocrit 26.3 % (35.3-44.9); Hemoglobin 8.8 g/dL (11.5-15.4)
[2016-07-29] MEDS: Aspirin Enteric Coated 325 MG Tablet PO SCH ×2 (08:14→20:47)
[2016-07-29] MEDS: Multivit/Ca/Min/Fe/FA 1 TAB TABLET PO SCH (08:15)
[2016-07-29] MEDS: Cholecalciferol (D-3) 1,000 UNIT TABLET PO SCH (08:15)
[2016-07-29] MEDS: Pantoprazole 40 MG VIAL IVP SCH (08:16)
[2016-07-29] MEDS: Ascorbic Acid 500 MG TABLET PO SCH ×2 (08:16→15:54)
[2016-07-29] MEDS: amLODIPine 5 MG TABLET PO SCH (08:16)
--- NOTE | 2016-07-29 08:18 | Orthopedics Progress Note ---
Date of Encounter: 07/29/16 Time of Encounter: 08:17 Subjective Interval history: Patient was seen this morning doing well without complaints. Afebrile vital signs stable. Operative extremity: Neurovascularly intact Dressing clean dry and intact Calves nontender Assessment and plan: Continue with postoperative care Hematocrit 8.8 Objective Vital signs: Vital Signs Temp Pulse Resp BP Pulse Ox 07/29/16 07:10 98.5 F 89 16 117/68 95 07/29/16 04:20 98.2 F 81 14 97/53 96 07/29/16 00:35 98.8 F 89 16 122/71 98 07/28/16 20:09 98.1 F 80 17 142/62 95 07/28/16 16:03 99.1 F 74 16 112/68 99 07/28/16 11:12 98.9 F 71 14 102/66 96 07/28/16 09:34 76 16 106/63 97 Intake and Output 07/28/16 07/29/16 07/29/16 23:59 07:59 15:59 Intake Total 600 / 600 150 / 150 Output Total 450 / 450 Balance 600 / 600 -300 / -300 Intake: Oral 600 / 600 150 / 150 Output: Urine 450 / 450 Other: Blood Glucose* 265 178 - Labs CBC & BMP: 07/29/16 06:05 07/28/16 08:10 Labs: Abnormal lab results RBC 3.14 M/mcL (3.82-4.97) L 07/28/16 08:10 Hgb 8.8 g/dL (11.5-15.4) L 07/29/16 06:05 Hct 26.3 % (35.3-44.9) L 07/29/16 06:05 APTT 25.8 Seconds (26.0-36.0) L 07/27/16 09:21 BUN 23 mg/dL (7-20) H 07/28/16 08:10 Est GFR (Non-Af Amer) 58 (> 60) L 07/28/16 08:10 Glucose 177 mg/dL (70-99) H 07/28/16 08:10 POC Glucose 193 (58-89) H 07/28/16 16:06 Calcium 8.2 mg/dL (8.6-10.8) L D 07/28/16 08:10 Urine Ketones Trace mg/dL (Negative) H 07/27/16 09:57 Ur Squamous Epith Cells Moderate per lpf (None-Few) H 07/27/16 09:57 - VTE Documentation of Mechanical Device: Venous foot pump, device Consult Discharge Plan - Plan Referrals: Britany Forrest MD [Primary Care Provider] -
--- NOTE | 2016-07-29 15:22 | Internal Med Progress Note ---
Date of Encounter: 07/29/16 Time of Encounter: 15:21 - Assessment and plan (1) S/P hip hemiarthroplasty Current Visit: No Status: Acute Assessment and plan: s/p Right hip hemiarthroplasty, POD#2 management as per ortho ensure DVT prophylaxis. bedside PT/PT will need inpt. rehab on dc, awaiting approval.. (2) HTN (hypertension) Current Visit: No Status: Chronic Assessment and plan: continu ehome meds, bp stable. Qualifiers: Hypertension type: essential hypertension Qualified Code(s): I10 - Essential (primary) hypertension - Subjective Interval history: mary seen at the bedside,s/p Right hip hemiarthroplasty, POD#2 Reports that the pain is much better today, otherwise doing well ortho managing post op care/ - Constitutional Vitals: Temp Pulse Resp BP Pulse Ox 98.1 F 82 15 123/72 98 07/29/16 11:00 07/29/16 11:00 07/29/16 11:00 07/29/16 11:00 07/29/16 11:00 General appearance: Present: A&O X 3, no acute distress Exam: neck- supple chest- b/l clear cvs-s1 and s2, no mr/g abd-soft, non tender, bs are present ext- no edema, tender right hip Internal Medicine: Result - Labs CBC & Chem 7: 07/29/16 06:05 07/28/16 08:10 Labs: Short CBC 07/29/16 Range/Units 06:05 Hgb 8.8 L (11.5-15.4) g/dL Hct 26.3 L (35.3-44.9) % - ABG Interpretation ABG results: PT/INR, D-dimer PT 11.0 Seconds (9.4-12.1) 07/27/16 09:21 - VTE Documentation of Mechanical Device: Venous foot pump, device Consult Discharge Plan - Plan Referrals: Britany Forrest MD [Primary Care Provider] -
[2016-07-30] MEDS: Ascorbic Acid 500 MG TABLET PO SCH ×2 (07:44→15:38)
[2016-07-30] MEDS: Pantoprazole 40 MG VIAL IVP SCH (07:44)
[2016-07-30] MEDS: Aspirin Enteric Coated 325 MG Tablet PO SCH ×2 (07:44→20:23)
[2016-07-30] MEDS: amLODIPine 5 MG TABLET PO SCH (07:44)
[2016-07-30] MEDS: Multivit/Ca/Min/Fe/FA 1 TAB TABLET PO SCH (07:44)
[2016-07-30] MEDS: Acetaminophen 325 MG TABLET PO PRN ×2 (07:44→17:45)
[2016-07-30] MEDS: Cholecalciferol (D-3) 1,000 UNIT TABLET PO SCH (07:45)
--- NOTE | 2016-07-30 08:08 | Orthopedics Progress Note ---
Date of Encounter: 07/30/16 Time of Encounter: 08:07 Subjective Interval history: Patient was seen this morning doing well without complaints. Afebrile vital signs stable. Operative extremity: Neurovascularly intact Dressing clean dry and intact Calves nontender Assessment and plan: Continue with postoperative care ortho stable Objective Vital signs: Vital Signs Temp Pulse Resp BP Pulse Ox 07/30/16 07:27 98.8 F 87 16 134/72 94 07/30/16 03:19 99.1 F 97 16 131/72 93 07/29/16 23:20 99.0 F 85 16 127/72 95 07/29/16 19:16 98.4 F 82 16 114/64 92 07/29/16 16:19 99.7 F H 91 14 138/50 97 07/29/16 11:00 98.1 F 82 15 123/72 98 Intake and Output 07/29/16 07/30/16 07/30/16 23:59 07:59 15:59 Output Total 300 / 300 Balance -300 / -300 Output: Urine 300 / 300 Other: # Voids 1 1 Weight 63.8 kg Blood Glucose* 255 202 Patient Weight 07/30/16 23:59 Weight 63.8 kg - Labs CBC & BMP: 07/29/16 06:05 07/28/16 08:10 Labs: Abnormal lab results RBC 3.14 M/mcL (3.82-4.97) L 07/28/16 08:10 Hgb 8.8 g/dL (11.5-15.4) L 07/29/16 06:05 Hct 26.3 % (35.3-44.9) L 07/29/16 06:05 APTT 25.8 Seconds (26.0-36.0) L 07/27/16 09:21 BUN 23 mg/dL (7-20) H 07/28/16 08:10 Est GFR (Non-Af Amer) 58 (> 60) L 07/28/16 08:10 Glucose 177 mg/dL (70-99) H 07/28/16 08:10 POC Glucose 255 (58-89) H 07/29/16 20:52 Calcium 8.2 mg/dL (8.6-10.8) L D 07/28/16 08:10 Urine Ketones Trace mg/dL (Negative) H 07/27/16 09:57 Ur Squamous Epith Cells Moderate per lpf (None-Few) H 07/27/16 09:57 - VTE Documentation of Mechanical Device: Venous foot pump, device Consult Discharge Plan - Plan Referrals: Britany Forrest MD [Primary Care Provider] -
[2016-07-30] MEDS: *HR* HYDROcodone/Acet 5/325 mg TABLET PO PRN ×2 (11:18→18:36)
[2016-07-30 13:39] LABS: Hemoglobin 8.7 g/dL (11.5-15.4)
[2016-07-30 18:25] LABS: Basophils % 0.4 %; Eosinophils # 0.2 K/mcL (0.0-0.6); Eosinophils % 2.2 %; Hemoglobin 8.9 g/dL (11.5-15.4); Immature Granulocytes % 0.3 % (0-4); Lymphocytes # 1.7 K/mcL (0.6-4.6); Lymphocytes % 22.4 %; Mean Corpuscular HGB Conc 34.2 g/dL (31.6-35.5); Mean Corpuscular Hemoglobin 31.2 pg (28.0-33.3); Mean Corpuscular Volume 91.2 fL (83.0-100.0); Mean Platelet Volume 10.8 fL (9.4-12.4); Monocytes # 0.6 K/mcL (0.0-1.3); Neutrophils # 4.9 K/mcL (1.6-8.9); Platelet Count 155 K/mcL (140-400); Red Blood Count 2.85 M/mcL (3.82-4.97); Red Cell Distribution Width 13.2 % (11.5-14.5); Segmented Neutrophils % 66.7 %
[2016-07-30 18:35] LABS: BUN/Creatinine Ratio 16 (6-26); Blood Urea Nitrogen 15 mg/dL (7-20); Calcium 9.1 mg/dL (8.6-10.8); Carbon Dioxide 27 mEq/L (19-29); Chloride 104 mEq/L (98-109); Glucose 184 mg/dL (70-99); Osmolality,Calculated 294 (280-300); Potassium 3.4 mEq/L (3.5-4.5); Sodium 139 mEq/L (136-145); eGFR For African Americans > 60 (> 60); eGFR For Non-African Americans 58 (> 60)
--- NOTE | 2016-07-31 07:59 | Orthopedics Progress Note ---
Date of Encounter: 07/31/16 Time of Encounter: 07:57 - Assessment and Plan (1) Subcapital fracture of right femur Current Visit: Yes Status: Acute Patient is doing well, pain controlled. Stable. Continue to ICE and elevate. Continue PT/OT. WBAT with assistance. Stable from orthopedics. Recommending 1 unit transfusion today before discharge. Ortho signing off. 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 Patient is doing well. Afebrile, vitals stable. H/H decreased 8.9/26. Dressing clean, dry and intact. RLE: Minimal ecchymosis, no erythema. Calf nontender. NV intact distally. I outlined post-operative restrictions. Continue to ICE and elevate. Continue PT/OT. WBAT with assistance. Stable from orthopedics. Recommending transfusion 1 unit. Ortho signing off. Objective Vital signs: Vital Signs Temp Pulse Resp BP Pulse Ox 07/31/16 02:50 97.8 F 93 14 119/65 97 07/31/16 00:00 97.6 F 82 13 109/67 95 07/30/16 20:00 97.8 F 80 15 116/58 94 07/30/16 16:07 98.1 F 83 16 137/79 96 07/30/16 11:51 97.8 F 84 16 132/83 96 Intake and Output 07/30/16 07/30/16 07/31/16 15:59 23:59 07:59 Intake Total 100 / 100 100 / 100 Output Total 300 / 300 300 / 300 50 / 50 Balance -200 / -200 -300 / -300 50 / 50 Intake: Oral 100 / 100 100 / 100 Output: Urine 300 / 300 300 / 300 50 / 50 Other: Meal Breakfast Percent of Meal Consumed 50% Blood Glucose* 192 201 Incision: clean and dry - Labs CBC & BMP: 07/30/16 18:16 07/30/16 18:16 Labs: Abnormal lab results RBC 2.85 M/mcL (3.82-4.97) L 07/30/16 18:16 Hgb 8.9 g/dL (11.5-15.4) L 07/30/16 18:16 Hct 26.0 % (35.3-44.9) L 07/30/16 18:16 APTT 25.8 Seconds (26.0-36.0) L 07/27/16 09:21 Potassium 3.4 mEq/L (3.5-4.5) L 07/30/16 18:16 Est GFR (Non-Af Amer) 58 (> 60) L 07/30/16 18:16 Glucose 184 mg/dL (70-99) H 07/30/16 18:16 POC Glucose 201 (58-89) H 07/30/16 22:32 Urine Ketones Trace mg/dL (Negative) H 07/27/16 09:57 Ur Squamous Epith Cells Moderate per lpf (None-Few) H 07/27/16 09:57 - VTE Documentation of Mechanical Device: Venous foot pump, device Consult Discharge Plan - Plan Referrals: Britany Forrest MD [Primary Care Provider] -
[2016-07-31] MEDS: Multivit/Ca/Min/Fe/FA 1 TAB TABLET PO SCH (08:23)
[2016-07-31] MEDS: amLODIPine 5 MG TABLET PO SCH (08:23)
[2016-07-31] MEDS: Ascorbic Acid 500 MG TABLET PO SCH (08:23)
[2016-07-31] MEDS: Aspirin Enteric Coated 325 MG Tablet PO SCH (08:23)
[2016-07-31] MEDS: Pantoprazole 40 MG VIAL IVP SCH (08:23)
[2016-07-31] MEDS: Cholecalciferol (D-3) 1,000 UNIT TABLET PO SCH (08:23)
[2016-07-31 12:29] VITALS: BP 158/75
[2016-07-31 13:37] LABS: Hematocrit 28.3 % (35.3-44.9); Hemoglobin 9.5 g/dL (11.5-15.4)
--- NOTE | 2016-07-31 13:40 | Internal Med Progress Note ---
Date of Encounter: 07/30/16 Time of Encounter: 13:36 - Assessment and plan (1) S/P hip hemiarthroplasty Current Visit: No Status: Acute Assessment and plan: s/p Right hip hemiarthroplasty, POD#3 management as per ortho ensure DVT prophylaxis. bedside PT/PT will need inpt. rehab on dc, taking elavil at home, family concerned about confusion which may be 2/2 being in the hospital and recent surgery, no focal defecits, awaiting approval.. (2) HTN (hypertension) Current Visit: No Status: Chronic Assessment and plan: continu ehome meds, bp stable. Qualifiers: Hypertension type: essential hypertension Qualified Code(s): I10 - Essential (primary) hypertension - Subjective Interval history: late entry patinet seen at the bedside,s/p Right hip hemiarthroplasty, POD#3 Reports that the pain is much better today, otherwise doing well family reporting confusion specially at the evenings, ortho managing post op care/ - Constitutional Vitals: Temp Pulse Resp BP Pulse Ox 98.6 F 94 16 158/75 96 07/31/16 11:33 07/31/16 11:33 07/31/16 11:33 07/31/16 11:33 07/31/16 11:33 General appearance: Present: A&O X 3, no acute distress Exam: neck- supple chest- b/l clear cvs-s1 and s2, no mr/g abd-soft, non tender, bs are present ext- no edema, tender right hip neuro- awake and alert, no focal defecits Internal Medicine: Result - Labs CBC & Chem 7: 07/30/16 18:16 07/30/16 18:16 Labs: Short CBC 07/30/16 07/30/16 Range/Units 13:24 18:16 WBC 7.4 (4.3-11.1) K/mcL Hgb 8.7 L 8.9 L (11.5-15.4) g/dL Hct 26.0 L 26.0 L (35.3-44.9) % Plt Count 155 (140-400) K/mcL Neutrophils # 4.9 (1.6-8.9) K/mcL BMP 07/30/16 18:16 Sodium 139 Potassium 3.4 L Chloride 104 Carbon Dioxide 27 BUN 15 Creatinine 0.93 Glucose 184 H Calcium 9.1 - ABG Interpretation ABG results: PT/INR, D-dimer PT 11.0 Seconds (9.4-12.1) 07/27/16 09:21 - VTE Documentation of Mechanical Device: Venous foot pump, device Consult Discharge Plan - Plan Referrals: Britany Forrest MD [Primary Care Provider] -
--- NOTE | 2016-07-31 15:02 | Discharge Summary ---
Date of Encounter: 08/01/16 Time of Encounter: 15:00 - Discharge Diagnosis (1) S/P hip hemiarthroplasty Priority: Primary Status: Acute (2) HTN (hypertension) Priority: Secondary Status: Chronic Qualifiers: Hypertension type: essential hypertension Qualified Code(s): I10 - Essential (primary) hypertension - Discharge Medications Prescriptions: Amitriptyline [Elavil] 10 mg PO HS #30 tablet Citalopram [CeleXA] 20 mg PO HS #30 tablet HYDROcodone/Acet 5/325 mg [[place] 5-325 mg] 1 tab PO BID PRN #30 tablet PRN Reason: Pain Temazepam [Restoril] 15 mg PO HS PRN #20 capsule PRN Reason: Insomnia Home Medications: Levothyroxine [Synthroid] [place] [address]/15/16 [History] Metoprolol [Lopressor] 50 mg PO BID 01/15/16 [History] Aspirin Enteric Coated [Aspirin EC] 325 mg PO BID #60 tablet. 01/20/16 [Rx] amLODIPine [Norvasc] 5 mg PO DAILY #30 tablet 01/20/16 [Rx] Calcium Carbonate/Vitamin D3 [Calcium 500 + Vit D Caplet] 1 each PO DAILY [History] Cholecalciferol (D-3) [Vitamin D] 2,000 unit PO DAILY 07/27/16 [History] Omeprazole [PriLOSEC] 40 mg PO DAILY 07/27/16 [History] Simvastatin [Zocor] 40 mg PO DAILY 07/27/16 [History] Amitriptyline [Elavil] 10 mg PO HS #30 tablet 07/31/16 [Rx] Citalopram [CeleXA] 20 mg PO HS #30 tablet 07/31/16 [Rx] HYDROcodone/Acet 5/325 mg [[place] 5-325 mg] 1 tab PO BID PRN #30 tablet 07/31/16 [Rx] Temazepam [Restoril] 15 mg PO HS PRN #20 capsule 07/31/16 [Rx] Allergies/Adverse Reactions: Allergies Oxycodone [From Percocet] Allergy (Verified 07/27/16 08:46) Itching Date of admission: 07/27/16 12:38 Primary care physician: Britany Forrest MD Consults: 07/27/16 19:27 Consult to Nurse Navigator [CONS] Routine Comment: ortho navigator Consult to Occupational Therapy [CONS] Routine Comment: Evaluate, develop and implement POC Reason for Consult: total hip replacement Consult to Physical Therapy [CONS] Routine Comment: Evaluate, develop and implement POC Reason for Consult: total hip replacement Consult to Trolley Car Operator [CONS] Routine Reason for SW Consult: post op joint replacement RT Post Op Consult [CONS] Routine Discharging clinician: Nahomy Layne Anticipated date of discharge: 07/31/16 - Patient Status Disposition: Transfer Inpatient Rehab Fac Condition: Fair Functional capacity at discharge: uses cane/walker Overall status at discharge: patient is progressing back to baseline - Discharge Instructions Follow Up With: Britany Forrest MD [Primary Care Provider] - Additional Instructions: Discharge Instructions: Total Hip Replacement Please call [facility] ([phone]), your Primary Care Physician, or report to the Emergency Room if you have any of the following symptoms: Nausea, vomiting, fever greater that 101.5, swelling, chest pain, shortness of breath, increased pain/redness/drainage/odor for your incision site, numbness/ tingling, or any other concerning symptoms. ACTIVITY:Weight-bearing as tolerated for 8 weeks with hip dislocation precautions that physical therapy taught you. You may progress as tolerated under the guidance of your physical therapist. You do not need to sleep with a pillow between your legs. You can also seep on the operative side or on your stomach. MEDICATIONS: Upon discharge resume your home medications. Take all the medications as prescribed. Take a stool softener if taking narcotic pain medications. Stool softeners are only effective if you drink enough fluids. Drink 6-8 glass of water or fluids a day, unless this is not allowed for another health problem. Despite using stool softeners, if you haven't had a bowel movement in 3 days, please switch to a gentle laxative. Gentle laxatives are sold over the counter. You should have a bowel movement within 24 hours, if not call the office. You will be discharged from the hospital with a prescription for pain medication. You are encouraged to decrease the use of narcotic pain medication as tolerated. Should you require a refill, please call the office. [facility] prescribes narcotic pain medication for only 4-6 weeks after surgery. If you require pain medication beyond this time period, you may be referred to your Primary Care Physician or to the Pain Clinic for further evaluation. Plan ahead for refills on pain medication as many narcotics either need to be picked up at the office or mailed. It is best to call 48-72 hours in advance of needing a prescription refill so you don't run out of medication. To help control the post-operative pain, you may take NSAIDs (Aleve,Advil, Motrin, ibuprofen, naprosyn) or Tylenol as prescribed on the bottle in addition to the pain medication. ANTICOAGULATION (blood thinners): Continue your Aspirin, Lovenox or Coumadin as prescribed to help prevent a blood clot in the leg or in the lungs. As long as your incision remains dry and you tolerate the NSAIDs (Aleve, Advil, Motrin, Ibuprofen, Naprosyn), it is OK to use the NSAIDS while you are taking your anticoagulation medication. Should your incision start to drain, stop the NSAID and contact our office. Common symptoms of blood clot in the legs include: localized pain, swelling, calf tenderness, redness or discoloration of the skin. Blood clot in the lung symptoms include: shortness of breath, rapid pulse, sweating, and chest pain that worsens with deep breathing, coughing up blood, lightheadedness, feelings of anxiety. If you experience any of these symptoms notify your physician immediately, go to the emergency room, or if having trouble breathing, call 911. WOUND CARE: Leave the dressing on for 7 to 10days. You may change the dressing if it is saturated greater than 50%. Do not get the dressing wet at anytime. Wash your hands with antibacterial soap, rinse and dry prior to any wound care. If you have sammi the visiting nurse or rehab facility can remove the stapes 10-14 days after surgery and place steri-strips across the wound. Leave the steri-strips in place until they fall off on their own. You may let water from the shower run on top of the steri-strips. If you do not have a visiting nurse or rehab facility, you will need to return to the office at 10-14 days for the sammi to be removed. If you have itching or redness around the dressing call the office. FOLLOW-UP: Please follow up with your surgeon in the orthopedic clinic in 6 weeks from the day of surgery. If you have sammi that need to be removed, you will need to come back to the office in 10-14 days from the day of surgery. - Diet and Activity Activity: as per physical therapy Diet: advance to your usual diet Interval History: Ms. Forrest is a 76 year old female who presents to [facility] this morning after suffering a right hip fracture. She reports that she was waking up from bed and fell next to her bed this morning and had severe right hip pain. She denies having any loss of consciousness or hitting her head. Patient found to have right subcapital femoral fracture on XR. This appears to be a mechanical fall. No signs of CVA/TIA, anemia, or infection. No history of significant heart disease, other than hypertension. No history of lung disease ortho was consulted and she underwent Right hip hemiarthroplasty. she did well post op and is being dc to inpt. rehab today in stable condition. she will f/u with ortho as OP. Hospital course: Ms. Forrest is a 76 year old female - Time Spent with Patient Total time spent providing and/or coordinating discharge services: - Constitutional Vitals: Temp Pulse Resp BP Pulse Ox 98.6 F 94 16 158/75 96 07/31/16 11:33 07/31/16 11:33 07/31/16 11:33 07/31/16 11:33 07/31/16 11:33 General appearance: Present: A&O X 3, no acute distress Exam: neck- supple chest- b/l clear cvs-s1 and s2, no mr/g abd-soft, non tender, bs are present ext- no edema, mild tenderness right hip neuro- awake and alert, no focal defecits - VTE Documentation of Mechanical Device: Venous foot pump, device
--- NOTE | 2016-07-31 15:03 | Physician Discharge Referral ---
ExtendedCare Referral Info Transfer To: [facility] Provider in Charge: jeyson mesa Institutional Level of Care: Intermediate - MR - Diagnosis (1) S/P hip hemiarthroplasty Status: Acute (2) HTN (hypertension) Status: Chronic - Transfer Medications Prescriptions: HYDROcodone/Acet 5/325 mg [[place] 5-325 mg] 1 tab PO BID PRN #30 tablet PRN Reason: Pain Home Medications: Citalopram [CeleXA] 20 mg PO HS 01/15/16 [History] Levothyroxine [Synthroid] 50 mcg PO 0630 01/15/16 [History] Metoprolol [Lopressor] 50 mg PO BID 01/15/16 [History] Aspirin Enteric Coated [Aspirin EC] 325 mg PO BID #60 tablet. 01/20/16 [Rx] amLODIPine [Norvasc] 5 mg PO DAILY #30 tablet 01/20/16 [Rx] Calcium Carbonate/Vitamin D3 [Calcium 500 + Vit D Caplet] 1 each PO DAILY [History] Cholecalciferol (D-3) [Vitamin D] 2,000 unit PO DAILY 07/27/16 [History] Omeprazole [PriLOSEC] 40 mg PO DAILY 07/27/16 [History] Simvastatin [Zocor] 40 mg PO DAILY 07/27/16 [History] HYDROcodone/Acet 5/325 mg [[place] 5-325 mg] 1 tab PO BID PRN #30 tablet 07/31/16 [Rx] Allergies/Adverse Reactions: Allergies Oxycodone [From Percocet] Allergy (Verified 07/27/16 08:46) Itching - Respiratory Orders Smoking Cessation: Smoking cessation has been advised. For more information, call the [place] Tobacco Quit Line at 0-080-CENO-NOW. - Advance Directives Code Status: Full Code - Mobility Orders Chair, Ambulate - Rehabiliation Orders Rehab Potential: Fair Rehab Orders: Evaluation for Physical Therapy, Evaluation for Occupational Therapy - Diet Orders Regular CERTIFICATION: I certify that the transfer of the above named patient to an Extended Care Facility is necessary for the continuing treatment of the diagnosis listed. The above information is true and accurate reflection of patient's current condition. Confidential - Redisclosure prohibited without a patient's written consent.
== END 2016-07-31 17:59 | DRG 470 ==
LOC: EMEROO 06:43 → 3NENU 12:38
PROVIDERS: ADMIT Hospitalist; ATTEND Internal Medicine Endocrinology, Diabetes & Metabolism

== ENCOUNTER 2016-09-01 17:54 | Inpatient (IN) ==
--- NOTE | 2016-09-01 19:18 | Emergency Department Note ---
Disposition Clinical Impression: Acute kidney injury, Lewy body dementia with behavioral disturbance Altered mental status, unspecified Qualifiers: Altered mental status type: unspecified Qualified Code(s): R41.82 - Altered mental status, unspecified Surgical wound infection Qualifiers: Encounter type: initial encounter Qualified Code(s): T81.4XXA - Infection following a procedure, initial encounter Disposition: Admitted As Inpatient Condition: Good General Adult HPI - General Chief complaint: ED Neuro Symptoms/Deficit Stated complaint: mental status change/poss CVA Time Seen by Provider: 09/01/16 18:50 Source: patient Limitations: altered mental status - History of Present Illness HPI Narrative: Mrs. Forrest is a 76-year-old female with past medical history of lewy body dementia, hypothyroidism, diabetes, and hyperlipidemia. She just recently fell and broke her right hip a month ago. I could not obtain a history from the patient. Her daughter states that a Week ago she started noticing some green purulent drainage out of the right side of the hip for which she saw her doctor for. Pseudomonas was cultured and she was prescribed Levaquin and Bactrim for the infection. Since then the drainage has become better, but has not completely resolved. 2 days ago, her noted that she was acting a little altered, struggling to get her words out, and having increasing night terrors. She went to her physician today who did a neuro exam and stated that he thought she had a stroke due to some facial abnormality on the left side. He is suggested that she go to the emergency department to be evaluated. Other than the recent antibiotics for her infection, her dose of amitriptyline for her nightmares was increased from 10 mg to 20 mg, and she also started taking Restoril. She is not currently on any blood thinners. Pain Scale: 3 - Related Data Home Medications Medication Instructions Recorded Confirmed Metoprolol [Lopressor] 50 mg PO BID 01/15/16 09/01/16 Calcium Carbonate/Vitamin D3 1 each PO DAILY 07/27/16 09/01/16 [Calcium 500 + Vit D Caplet] Cholecalciferol (D-3) [Vitamin D] 2,000 unit PO DAILY 07/27/16 09/01/16 Omeprazole [PriLOSEC] 40 mg PO DAILY 07/27/16 09/01/16 Simvastatin [Zocor] 40 mg PO DAILY 07/27/16 09/01/16 Amitriptyline [Elavil] 20 mg PO HS 09/01/16 09/01/16 Aspirin Enteric Coated [Aspirin EC] 325 mg PO DAILY 09/01/16 09/01/16 Citalopram Hydrobromide [Celexa] 40 mg PO DAILY 09/01/16 09/01/16 Levothyroxine [Synthroid] 50 mcg PO 0630 09/01/16 09/01/16 Previous Rx's Medication Instructions Recorded amLODIPine [Norvasc] 5 mg PO DAILY #30 tablet 01/20/16 HYDROcodone/Acet 5/325 mg [[place] 1 tab PO BID PRN #30 tablet 07/31/16 5-325 mg] Temazepam [Restoril] 15 mg PO HS PRN #20 capsule 07/31/16 Allergies Allergy/AdvReac Type Severity Reaction Status Date / Time Oxycodone [From Percocet] Allergy Itching Verified 09/01/16 17:58 Limitations: ROS unobtainable due to patients medical condition Past Medical History - Past Medical History Medical history: Reports: diabetes, hyperlipidemia, hypertension Surgical history: Reports: hysterectomy Psychiatric history: Reports: no psych history - Social History Smoking Status: Never smoker Smokeless Tobacco Status: No Alcohol use: Reports: none Drug use: Reports: none Physical Exam - General Limitations: no limitations, altered mental status General appearance: alert - Eye Eye exam: Present: normal appearance, EOMI. Absent: conjunctival injection, miosis, mydriasis - ENT ENT exam: mucous membranes dry - Neck Neck exam: Present: normal inspection, full ROM. Absent: lymphadenopathy - Chest Chest inspection: Present: normal inspection, symmetric chest wall rise. Absent : tenderness - Respiratory Respiratory exam: Present: normal lung sounds bilaterally. Absent: respiratory distress, wheezes - Cardiovascular Cardiovascular exam: Present: regular rate - Abdominal Exam Abdominal exam: Present: soft, tenderness. Absent: distention, guarding, rebound, rigidity, Alexander's sign Abdominal tenderness: Present: suprapubic, moderate - Extremities Exam Extremities exam: Absent: pedal edema - Expanded Upper Extremity Exam Shoulder exam: Present: normal inspection Arm exam: Present: normal inspection Elbow exam: Present: normal inspection Forearm/Wrist exam: Present: normal inspection Hand exam: Present: laceration, erythema Vascular exam: Normal: capillary refill, radial pulse - Expanded Lower Extremity Exam Hip/Pelvis exam: Present: tenderness, erythema, other (There was redness and induration on the right hip with a little drainage. This was tender to palpation.) - Neurological Exam Neurological exam: Present: alert, other (Cranial nerve exam was difficult to obtain due to patient's altered mental status. She did have difficulty with responding to my questions with words. However she had no difficulty following some of my commands. Strength was 5 out of 5 in the upper and lower extremities. Sensation was intact as well. There was no other focal neurologic deficits appreciated.) Course Vital Signs Temperature 98.6 F 09/01/16 17:58 Pulse Rate 96 09/01/16 17:58 Respiratory Rate 20 09/01/16 17:58 Blood Pressure 133/90 09/01/16 17:58 O2 Sat by Pulse Oximetry 96 09/01/16 17:58 Temperature 98.5 F 09/02/16 07:45 Pulse Rate 93 09/02/16 07:45 Respiratory Rate 16 09/02/16 07:45 Blood Pressure 187/81 09/02/16 07:45 O2 Sat by Pulse Oximetry 94 09/02/16 07:45 Oxygen Delivery Oxygen Delivery Room Air Medical Decision Making - MDM Narrative Medical decision making narrative: Mrs. Forrest is a 76-year-old female who presented to the emergency department with altered mental status. This was concerning for hemorrhagic stroke, infection, electrolyte abnormalities, possible uremia, or due to recent increases of her Restoril as well as amitriptyline. A CT of her head was performed, chest x-ray obtained to rule out pneumonia, urinalysis to rule out bladder infection, CT of the abdomen was obtained due to abdominal tenderness, and the CT of the right hip to rule out necrotizing fasciitis and osteomyelitis. All the CTs came back negative. Her renal function has diminished with a creatinine of 1.57 and a GFR of 32. 2 L of fluid was given and lowered her heart rate from 103 to the mid 90s. I consulted Dr. Freeman who performed her right hip surgery a month ago and he feels that it is reasonable to start her all thank and Zosyn and he will see her in the morning. I called pharmacy to help renally dose these antibiotics. I also consulted the hospitalist who agreed to admit her. Her diagnosis is altered mental status, acute kidney injury, and infection of the right hip surgical site. She also had a laceration on her left hand that I thoroughly washed with normal saline and placed Steri-Strips to close it. - Lab Data Result diagrams: 09/02/16 00:55 09/02/16 00:55 Lab Results 09/01/16 09/01/16 09/01/16 Range/Units 19:18 19:42 19:42 WBC 10.7 (4.3-11.1) K/mcL RBC 3.07 L (3.82-4.97) M/mcL Hgb 8.9 L (11.5-15.4) g/dL Hct 28.0 L (35.3-44.9) % MCV 91.2 (83.0-100.0) fL MCH 29.0 (28.0-33.3) pg MCHC 31.8 (31.6-35.5) g/dL RDW 14.8 H (11.5-14.5) % Plt Count 508 H D (140-400) K/mcL MPV 9.5 (9.4-12.4) fL Immature Gran % 0.6 (0-4) % Seg Neutrophils % 75.9 % Lymphocytes % 16.1 % Monocytes % 5.6 % Eosinophils % 1.5 % Basophils % 0.3 % Neutrophils # 8.1 (1.6-8.9) K/mcL Lymphocytes # 1.7 (0.6-4.6) K/mcL Monocytes # 0.6 (0.0-1.3) K/mcL Eosinophils # 0.2 (0.0-0.6) K/mcL Basophils # 0.0 (0.0-0.2) K/mcL PT 14.6 H (9.4-12.1) Seconds INR 1.3 APTT 25.9 L (26.0-36.0) Seconds Sodium (136-145) mEq/L Potassium (3.5-4.5) mEq/L Chloride (98-109) mEq/L Carbon Dioxide (19-29) mEq/L BUN (7-20) mg/dL Creatinine (0.57-1.11) mg/dL Est GFR ( Amer) (> 60) Est GFR (Non-Af Amer) (> 60) BUN/Creatinine Ratio (6-26) Glucose (70-99) mg/dL POC Glucose 165 H (58-89) Calculated Osmolality (280-300) Lactic Acid (0.5-2.2) mmol/L Calcium (8.6-10.8) mg/dL Total Bilirubin (0.2-1.2) mg/dL Direct Bilirubin (0.0-0.5) mg/dL Indirect Bilirubin (0.0-1.2) mg/dL AST (5-34) Units/L ALT (0-55) Units/L Alkaline Phosphatase (38-126) Units/L Troponin I (0-0.03) ng/mL Serum Total Protein (6.0-8.3) g/dL Albumin (3.5-5.0) g/dL Globulin (2.4-3.5) g/dL Albumin/Globulin Ratio (1.1-2.2) TSH (0.350-4.840) mcIU/mL Urine Color (Yellow) Urine Clarity (Clear) Urine pH (5.0-8.0) pH Units Ur Specific [place] (1.010-1.025) Urine Protein (Neg-Trace) mg/dL Urine Glucose (UA) (Normal) mg/dL Urine Ketones (Negative) mg/dL Urine Blood (Negative) Urine Nitrite (Negative) Urine Bilirubin (Negative) Urine Urobilinogen (Normal) mg/dL Ur Leukocyte Esterase (Negative) Urine Microscopic RBC (0-3) per hpf Urine Microscopic WBC (0-3) per hpf Ur Squamous Epith Cells (None-Few) per lpf Urine Bacteria (None-Few) per hpf Hyaline Casts (None-Few) per lpf Ur Culture Indicated? (NO) Blood Type Antibody Screen 09/01/16 09/01/16 09/01/16 Range/Units 19:42 19:42 20:54 WBC (4.3-11.1) K/mcL RBC (3.82-4.97) M/mcL Hgb (11.5-15.4) g/dL Hct (35.3-44.9) % MCV (83.0-100.0) fL MCH (28.0-33.3) pg MCHC (31.6-35.5) g/dL RDW (11.5-14.5) % Plt Count (140-400) K/mcL MPV (9.4-12.4) fL Immature Gran % (0-4) % Seg Neutrophils % % Lymphocytes % % Monocytes % % Eosinophils % % Basophils % % Neutrophils # (1.6-8.9) K/mcL Lymphocytes # (0.6-4.6) K/mcL Monocytes # (0.0-1.3) K/mcL Eosinophils # (0.0-0.6) K/mcL Basophils # (0.0-0.2) K/mcL PT (9.4-12.1) Seconds INR APTT (26.0-36.0) Seconds Sodium 139 (136-145) mEq/L Potassium 4.0 (3.5-4.5) mEq/L Chloride 108 (98-109) mEq/L Carbon Dioxide 21 (19-29) mEq/L BUN 30 H (7-20) mg/dL Creatinine 1.57 H (0.57-1.11) mg/dL Est GFR ( Amer) 39 L (> 60) Est GFR (Non-Af Amer) 32 L (> 60) BUN/Creatinine Ratio 19 (6-26) Glucose 163 H (70-99) mg/dL POC Glucose (58-89) Calculated Osmolality 298 (280-300) Lactic Acid (0.5-2.2) mmol/L Calcium 10.1 (8.6-10.8) mg/dL Total Bilirubin 0.3 (0.2-1.2) mg/dL Direct Bilirubin (0.0-0.5) mg/dL Indirect Bilirubin (0.0-1.2) mg/dL AST 30 (5-34) Units/L ALT 29 (0-55) Units/L Alkaline Phosphatase 86 (38-126) Units/L Troponin I 0.00 (0-0.03) ng/mL Serum Total Protein 7.3 (6.0-8.3) g/dL Albumin 2.8 L (3.5-5.0) g/dL Globulin 4.5 H (2.4-3.5) g/dL Albumin/Globulin Ratio 0.6 L (1.1-2.2) TSH (0.350-4.840) mcIU/mL Urine Color Dark Yellow (Yellow) Urine Clarity Cloudy A (Clear) Urine pH 5.5 (5.0-8.0) pH Units Ur Specific [place] > 1.030 H (1.010-1.025) Urine Protein Trace (Neg-Trace) mg/dL Urine Glucose (UA) Normal (Normal) mg/dL Urine Ketones Negative (Negative) mg/dL Urine Blood Negative (Negative) Urine Nitrite Negative (Negative) Urine Bilirubin Moderate H (Negative) Urine Urobilinogen Normal (Normal) mg/dL Ur Leukocyte Esterase Negative (Negative) Urine Microscopic RBC 0-3 (0-3) per hpf Urine Microscopic WBC 0-3 (0-3) per hpf Ur Squamous Epith Cells Many H (None-Few) per lpf Urine Bacteria None Seen (None-Few) per hpf Hyaline Casts None Seen (None-Few) per lpf Ur Culture Indicated? NO (NO) Blood Type Antibody Screen 09/02/16 09/02/16 09/02/16 Range/Units 00:55 00:55 00:55 WBC (4.3-11.1) K/mcL RBC (3.82-4.97) M/mcL Hgb (11.5-15.4) g/dL Hct (35.3-44.9) % MCV (83.0-100.0) fL MCH (28.0-33.3) pg MCHC (31.6-35.5) g/dL RDW (11.5-14.5) % Plt Count (140-400) K/mcL MPV (9.4-12.4) fL Immature Gran % (0-4) % Seg Neutrophils % % Lymphocytes % % Monocytes % % Eosinophils % % Basophils % % Neutrophils # (1.6-8.9) K/mcL Lymphocytes # (0.6-4.6) K/mcL Monocytes # (0.0-1.3) K/mcL Eosinophils # (0.0-0.6) K/mcL Basophils # (0.0-0.2) K/mcL PT (9.4-12.1) Seconds INR APTT 25.5 L (26.0-36.0) Seconds Sodium (136-145) mEq/L Potassium (3.5-4.5) mEq/L Chloride (98-109) mEq/L Carbon Dioxide (19-29) mEq/L BUN (7-20) mg/dL Creatinine (0.57-1.11) mg/dL Est GFR ( Amer) (> 60) Est GFR (Non-Af Amer) (> 60) BUN/Creatinine Ratio (6-26) Glucose (70-99) mg/dL POC Glucose (58-89) Calculated Osmolality (280-300) Lactic Acid 1.5 (0.5-2.2) mmol/L Calcium (8.6-10.8) mg/dL Total Bilirubin 0.4 (0.2-1.2) mg/dL Direct Bilirubin 0.2 (0.0-0.5) mg/dL Indirect Bilirubin 0.2 (0.0-1.2) mg/dL AST 26 (5-34) Units/L ALT 26 (0-55) Units/L Alkaline Phosphatase 77 (38-126) Units/L Troponin I (0-0.03) ng/mL Serum Total Protein 6.4 (6.0-8.3) g/dL Albumin 2.6 L (3.5-5.0) g/dL Globulin 3.8 H (2.4-3.5) g/dL Albumin/Globulin Ratio 0.7 L (1.1-2.2) TSH (0.350-4.840) mcIU/mL Urine Color (Yellow) Urine Clarity (Clear) Urine pH (5.0-8.0) pH Units Ur Specific [place] (1.010-1.025) Urine Protein (Neg-Trace) mg/dL Urine Glucose (UA) (Normal) mg/dL Urine Ketones (Negative) mg/dL Urine Blood (Negative) Urine Nitrite (Negative) Urine Bilirubin (Negative) Urine Urobilinogen (Normal) mg/dL Ur Leukocyte Esterase (Negative) Urine Microscopic RBC (0-3) per hpf Urine Microscopic WBC (0-3) per hpf Ur Squamous Epith Cells (None-Few) per lpf Urine Bacteria (None-Few) per hpf Hyaline Casts (None-Few) per lpf Ur Culture Indicated? (NO) Blood Type Antibody Screen 09/02/16 09/02/16 09/02/16 Range/Units 00:55 00:55 00:55 WBC 11.2 H (4.3-11.1) K/mcL RBC 2.82 L (3.82-4.97) M/mcL Hgb 8.3 L (11.5-15.4) g/dL Hct 26.2 L (35.3-44.9) % MCV 92.9 (83.0-100.0) fL MCH 29.4 (28.0-33.3) pg MCHC 31.7 (31.6-35.5) g/dL RDW 14.8 H (11.5-14.5) % Plt Count 474 H (140-400) K/mcL MPV 9.8 (9.4-12.4) fL Immature Gran % 0.6 (0-4) % Seg Neutrophils % 75.3 % Lymphocytes % 16.9 % Monocytes % 5.2 % Eosinophils % 1.8 % Basophils % 0.2 % Neutrophils # 8.4 (1.6-8.9) K/mcL Lymphocytes # 1.9 (0.6-4.6) K/mcL Monocytes # 0.6 (0.0-1.3) K/mcL Eosinophils # 0.2 (0.0-0.6) K/mcL Basophils # 0.0 (0.0-0.2) K/mcL PT (9.4-12.1) Seconds INR APTT (26.0-36.0) Seconds Sodium 142 (136-145) mEq/L Potassium 4.1 (3.5-4.5) mEq/L Chloride 112 H (98-109) mEq/L Carbon Dioxide 23 (19-29) mEq/L BUN 25 H (7-20) mg/dL Creatinine 1.29 H (0.57-1.11) mg/dL Est GFR ( Amer) 49 L (> 60) Est GFR (Non-Af Amer) 40 L (> 60) BUN/Creatinine Ratio 19 (6-26) Glucose 155 H (70-99) mg/dL POC Glucose (58-89) Calculated Osmolality 302 H (280-300) Lactic Acid (0.5-2.2) mmol/L Calcium 8.8 (8.6-10.8) mg/dL Total Bilirubin 0.4 (0.2-1.2) mg/dL Direct Bilirubin (0.0-0.5) mg/dL Indirect Bilirubin (0.0-1.2) mg/dL AST 27 (5-34) Units/L ALT 25 (0-55) Units/L Alkaline Phosphatase 76 (38-126) Units/L Troponin I (0-0.03) ng/mL Serum Total Protein 6.4 (6.0-8.3) g/dL Albumin 2.6 L (3.5-5.0) g/dL Globulin 3.8 H (2.4-3.5) g/dL Albumin/Globulin Ratio 0.7 L (1.1-2.2) TSH 13.315 H (0.350-4.840) mcIU/mL Urine Color (Yellow) Urine Clarity (Clear) Urine pH (5.0-8.0) pH Units Ur Specific [place] (1.010-1.025) Urine Protein (Neg-Trace) mg/dL Urine Glucose (UA) (Normal) mg/dL Urine Ketones (Negative) mg/dL Urine Blood (Negative) Urine Nitrite (Negative) Urine Bilirubin (Negative) Urine Urobilinogen (Normal) mg/dL Ur Leukocyte Esterase (Negative) Urine Microscopic RBC (0-3) per hpf Urine Microscopic WBC (0-3) per hpf Ur Squamous Epith Cells (None-Few) per lpf Urine Bacteria (None-Few) per hpf Hyaline Casts (None-Few) per lpf Ur Culture Indicated? (NO) Blood Type Antibody Screen 09/02/16 09/02/16 Range/Units 00:55 04:47 WBC (4.3-11.1) K/mcL RBC (3.82-4.97) M/mcL Hgb (11.5-15.4) g/dL Hct (35.3-44.9) % MCV (83.0-100.0) fL MCH (28.0-33.3) pg MCHC (31.6-35.5) g/dL RDW (11.5-14.5) % Plt Count (140-400) K/mcL MPV (9.4-12.4) fL Immature Gran % (0-4) % Seg Neutrophils % % Lymphocytes % % Monocytes % % Eosinophils % % Basophils % % Neutrophils # (1.6-8.9) K/mcL Lymphocytes # (0.6-4.6) K/mcL Monocytes # (0.0-1.3) K/mcL Eosinophils # (0.0-0.6) K/mcL Basophils # (0.0-0.2) K/mcL PT (9.4-12.1) Seconds INR APTT (26.0-36.0) Seconds Sodium (136-145) mEq/L Potassium (3.5-4.5) mEq/L Chloride (98-109) mEq/L Carbon Dioxide (19-29) mEq/L BUN (7-20) mg/dL Creatinine (0.57-1.11) mg/dL Est GFR ( Amer) (> 60) Est GFR (Non-Af Amer) (> 60) BUN/Creatinine Ratio (6-26) Glucose (70-99) mg/dL POC Glucose (58-89) Calculated Osmolality (280-300) Lactic Acid 0.9 (0.5-2.2) mmol/L Calcium (8.6-10.8) mg/dL Total Bilirubin (0.2-1.2) mg/dL Direct Bilirubin (0.0-0.5) mg/dL Indirect Bilirubin (0.0-1.2) mg/dL AST (5-34) Units/L ALT (0-55) Units/L Alkaline Phosphatase (38-126) Units/L Troponin I (0-0.03) ng/mL Serum Total Protein (6.0-8.3) g/dL Albumin (3.5-5.0) g/dL Globulin (2.4-3.5) g/dL Albumin/Globulin Ratio (1.1-2.2) TSH (0.350-4.840) mcIU/mL Urine Color (Yellow) Urine Clarity (Clear) Urine pH (5.0-8.0) pH Units Ur Specific [place] (1.010-1.025) Urine Protein (Neg-Trace) mg/dL Urine Glucose (UA) (Normal) mg/dL Urine Ketones (Negative) mg/dL Urine Blood (Negative) Urine Nitrite (Negative) Urine Bilirubin (Negative) Urine Urobilinogen (Normal) mg/dL Ur Leukocyte Esterase (Negative) Urine Microscopic RBC (0-3) per hpf Urine Microscopic WBC (0-3) per hpf Ur Squamous Epith Cells (None-Few) per lpf Urine Bacteria (None-Few) per hpf Hyaline Casts (None-Few) per lpf Ur Culture Indicated? (NO) Blood Type O POSITIVE Antibody Screen NEGATIVE - EKG Data EKG #1 EKG results narrative: Ventricular rate 103 bpm SD interval 171 and S QRS duration 86 MS QT/QTc [id number] MS Normal axis Sinus tachycardia with a ventricular rate of 103 bpm. Attestation Statement - Attestation Attestation: I, Rosalio Palafox, examined this patient and my medical decision-making was reviewed with the SANITARIAN INSPECTOR/PA/Advanced Practice Nurse/Resident Physician. I agree with the documented findings, disposition and treatment plan as described except to the extent set forth below. 76-year-old female brought in by family with concerns of altered mental status. They state that she is significantly more confused than her baseline. They also state that she is more tremulous than what she normally is presenting with. Patient had a right hip replacement about 5 weeks ago however within the past week she has developed increasing edema and induration and drainage to the incision of the right hip. Patient is generally able to ambulate without difficulty however she has increased pain with ambulation today. Family denies recent increase of fever or chills or nausea or vomiting. No recent changes in the patient's medications. She is generally able to carry a full conversation however she is very forgetful and unable to converse during the evaluation today. CT of the right hip shows likely infection. Patient was started on Levaquin prior to arrival for likely infection hip by the orthopedic nurse practitioner. Patient's altered mental status could be secondary to infection versus medication reaction. She will be admitted to hospital for further care and evaluation of her altered mental status and possible right hip infection as well as for her acute kidney injury.
[2016-09-01] MEDS ORDERED: 0.9 % Sodium Chloride 1,000 ML IVC ONE ×2 (19:39→21:51)
[2016-09-01 19:49] LABS: Basophils % 0.3 %; Eosinophils # 0.2 K/mcL (0.0-0.6); Eosinophils % 1.5 %; Hemoglobin 8.9 g/dL (11.5-15.4); Immature Granulocytes % 0.6 % (0-4); Lymphocytes # 1.7 K/mcL (0.6-4.6); Lymphocytes % 16.1 %; Mean Corpuscular HGB Conc 31.8 g/dL (31.6-35.5); Mean Corpuscular Volume 91.2 fL (83.0-100.0); Mean Platelet Volume 9.5 fL (9.4-12.4); Monocytes # 0.6 K/mcL (0.0-1.3); Monocytes % 5.6 %; Neutrophils # 8.1 K/mcL (1.6-8.9); Platelet Count 508 K/mcL (140-400); Red Blood Count 3.07 M/mcL (3.82-4.97); Red Cell Distribution Width 14.8 % (11.5-14.5); Segmented Neutrophils % 75.9 %
[2016-09-01 19:52] LABS: INR 1.3; Prothrombin Time 14.6 Seconds (9.4-12.1)
[2016-09-01 19:55] LABS: Activated Partial Thrombo Time 25.9 Seconds (26.0-36.0)
[2016-09-01 20:01] LABS: Albumin 2.8 g/dL (3.5-5.0); Albumin/Globulin Ratio 0.6 (1.1-2.2); Bilirubin,Total 0.3 mg/dL (0.2-1.2); Calcium 10.1 mg/dL (8.6-10.8); Globulin 4.5 g/dL (2.4-3.5); Total Protein 7.3 g/dL (6.0-8.3)
[2016-09-01 21:01] LABS: Bilirubin,Urine Moderate (Negative); Blood,Urine Negative (Negative); Clarity,Urine Cloudy (Clear); Color,Urine Dark Yellow (Yellow); Glucose,Urine (UA) Normal (Normal); Ketones,Urine Negative (Negative); Leukocyte Esterase,Urine Negative (Negative); Nitrite,Urine Negative (Negative); PH,Urine 5.5 pH Units (5.0-8.0); Protein,Urine Trace mg/dL (Neg-Trace); Specific Gravity,Urine > 1.030 (1.010-1.025); Urobilinogen,Urine Normal (Normal)
[2016-09-01 21:03] LABS: Bacteria,Urine None Seen per hpf (None-Few); Hyaline Casts,Urine None Seen per lpf (None-Few); RBC,Urine 0-3 per hpf (0-3); Squamous Epithelial Cell,Urine Many per lpf (None-Few); WBC,Urine 0-3 per hpf (0-3)
[2016-09-01] MEDS ORDERED: Piperacillin/Tazobactam 3.375 GM in D5% in Water (Mini-Bag+) 100 ML IVPB SCH (22:00)
[2016-09-01] MEDS ORDERED: Vancomycin 1,250 MG in D5% in Water 250 ML IVPB ONE (22:30)
[2016-09-01] MEDS ORDERED: Ondansetron ODT 4 MG TAB.RAPDIS SL PRN (23:54)
[2016-09-01] MEDS ORDERED: Naloxone 0.4 MG/ML INJ IVP PRN (23:54)
[2016-09-01] MEDS ORDERED: Acetaminophen 650 MG RECTAL SUPP RC PRN (23:58)
[2016-09-02] MEDS ORDERED: Vancomycin 1,000 MG in D5% in Water 250 ML IVPB SCH
[2016-09-02] MEDS ORDERED: D5% in Water 1,000 ML IVC PRN (00:16)
[2016-09-02] MEDS ORDERED: *HR* Dextrose 50 % in Water (Syg) 50 ML SYRINGE IVP PRN (00:16)
[2016-09-02] MEDS ORDERED: Dextrose Gel 15 GM PO PRN ×2 (00:16)
--- NOTE | 2016-09-02 00:23 | Internal Med History&Physical ---
Addendum entered and electronically signed by Henok Simpson DO 09/02 06:02: Original Note: Date of Encounter: 09/02/16 Time of Encounter: 00:17 Assessment and Plan (1) Altered mental status, unspecified Current visit: Yes Status: Acute Patient presents with altered mental status, alert and oriented X0. Baseline short-term memory loss, Lewy body dementia. - Acute altered mental status in the setting of right hip surgical wound infection. Platelet count of 508, acute kidney injury. Plan: - Broad spectrum antibiotics to cover right hip wound infection. - Hold any sedative or altering medications - Continue rehydration. - Urine analysis without signs of UTI - We will obtain blood cultures - Lactic acid - TSH Qualifiers: Altered mental status type: unspecified Qualified Code(s): R41.82 - Altered mental status, unspecified (2) Acute kidney injury Current visit: Yes Status: Acute Acute kidney injury with creatinine of 1.57 and GFR of 32 in the setting of right hip surgical site infection and altered mental status. This may be a combination of dehydration and infection. - Vitals stable, patient has received 2 L normal saline IV Plan: - Continue IV rehydration - Avoid nephrotoxic medications and renally dose antibiotics. - Continue to monitor renal function with a.m. labs (3) Lewy body dementia with behavioral disturbance Current visit: Yes Status: Acute Patient has a known history of loose body dementia, takes 20 mg amitriptyline by mouth at bedtime. - Continue amitriptyline when patient is stable. - Continue Restoril (4) Surgical wound infection Current visit: Yes Status: Acute Patient status post right total hip replacement. Surgical site infection not improved with outpatient oral antibiotics of Levaquin and Bactrim DS. - Patient started on Levaquin, vancomycin, Zosyn, previous wound growth was MRSA and Pseudomonas. - Orthopedic surgery has been consult surgeon is aware of patient. Qualifiers: Encounter type: initial encounter Qualified Code(s): T81.4XXA - Infection following a procedure, initial encounter (5) S/P hip hemiarthroplasty Current visit: Yes Status: Acute As mentioned above. (6) S/P thyroidectomy Current visit: No Status: Acute Patient is a history of total thyroidectomy status post thyroid storm. Patient' s family states that her Synthroid dose was recently decreased. -We will obtain TSH with this may be abnormal and the setting of acute infection. If levels are significantly altered will address. (7) Diabetes mellitus Current visit: Yes Status: Chronic History of hyperglycemia, glucoses greater than 200 upon admission in the setting of acute infection. Plan: - Before meals at bedtime glucose checks - Low-dose subcutaneous insulin sliding scale. Qualifiers: Diabetes mellitus type: type 2 Diabetes mellitus complication status: with kidney complications Diabetes mellitus complication detail: with chronic kidney disease Diabetes mellitus fdc insulin use: without fdc use Chronic kidney disease stage: stage 2 (mild) Qualified Code(s): E11.22 - Type 2 diabetes mellitus with diabetic chronic kidney disease; N18.2 - Chronic kidney disease, stage 2 (mild) (8) HTN (hypertension) Current visit: No Status: Chronic Patient is a known history of essential hypertension currently on Norvasc 5 mg by mouth daily, Lopressor 50 mg by mouth twice a day. - Currently hypertensive and will continue home oral antihypertensives. Patient demonstrates signs of hypotension these antihypertensive medication shall be held. Qualifiers: Hypertension type: essential hypertension Qualified Code(s): I10 - Essential (primary) hypertension (9) DVT prophylaxis Current visit: No Status: Acute Subcutaneous heparin Internal Medicine - H&P: HPI Chief complaint: ams Admitted From: Emergency Dept Plans for Post Hospital Care: Transfer Senior Living Facility History of present illness: Ms. 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 Patient is altered and , son and [id number] are at bedside and provide details. Mrs. Forrest suffered a fall resulting in a right hip fracture 07/27/2016 or which she required total right hip replacement. She was transferred to a nursing facility to undergo physical therapy and recovery. Roughly one week ago she was found to have a right hip surgical site infection, which grew pseudomonas and MRSA. She was started on Levaquin by mouth and Bactrim DS for which her family says did not show much improvement in her right hip infection. Actually believe that her right hip infection got worse and has purulent drainage from the posterior distal site. This morning Mrs. Forrest was found to have an altered mental status, lashing out, incoherence and hallucinating. Her [id number] says that she has had similar previous episode like this when she has had urinary tract infections. They are very concerned because she does have baseline short-term memory loss and was placed on amitriptyline for her Vasu body dementia which they feel has improved her significantly. They (the family) are worried that if we did not continue her amitriptyline she will become worse. They set up until yesterday her mental status is at baseline. Past Med Surg Social Fam HX - Past Medical History Medical history: diabetes, hyperlipidemia, hypertension Psychiatric history: depression - Past Surgical History Surgical History: breast surgery, hysterectomy, orthopedic, other - Social History Smoking Status: Never smoker Smokeless Tobacco Status: No Alcohol use: none Drug use: none - Family History Mother Living Status: Hx Family Cardiac Disorders: Yes (HTN) Hx Family Neurologic Disorders: Yes (Dementia) Father Living Status: Hx Family Cancer: Yes (Lung) Internal Medicine - H&P: Meds Metoprolol [Lopressor] 50 mg PO BID 01/15/16 [History] amLODIPine [Norvasc] 5 mg PO DAILY #30 tablet 01/20/16 [Rx] Calcium Carbonate/Vitamin D3 [Calcium 500 + Vit D Caplet] 1 each PO DAILY [History] Cholecalciferol (D-3) [Vitamin D] 2,000 unit PO DAILY 07/27/16 [History] Omeprazole [PriLOSEC] 40 mg PO DAILY 07/27/16 [History] Simvastatin [Zocor] 40 mg PO DAILY 07/27/16 [History] HYDROcodone/Acet 5/325 mg [[place] 5-325 mg] 1 tab PO BID PRN #30 tablet 07/31/16 [Rx] Temazepam [Restoril] 15 mg PO HS PRN #20 capsule 07/31/16 [Rx] Amitriptyline [Elavil] 20 mg PO HS 09/01/16 [History] Aspirin Enteric Coated [Aspirin EC] 325 mg PO DAILY 09/01/16 [History] Citalopram Hydrobromide [Celexa] 40 mg PO DAILY 09/01/16 [History] Levothyroxine [Synthroid] 50 mcg PO 0630 09/01/16 [History] Allergies Oxycodone [From Percocet] Allergy (Verified 09/01/16 17:58) Itching ROS unobtainable: due to mental status All Systems PM: A 10-system review of systems was performed and is negative for pertinent findings except as documented above in the HPI. - Constitutional Vitals: Temp Pulse Resp BP Pulse Ox 0 F L 92 0 0/0 98 09/01/16 23:23 09/01/16 20:11 09/01/16 23:23 09/01/16 23:23 09/01/16 20:11 General appearance: Present: A&O X 0, mild distress Exam: General: Patient altered, lashing out, hallucinating and trying to ambulate from the patient bedside. Patient is warm to touch HEENT: Normocephalic, atraumatic, pupils equal reactive to light, nasal cavity patent and open septum median position, oral mucosa moist, uvula midline, neck supple trachea midline no palpable lymphadenopathy, Chest: Symmetric bilateral correlating with respiratory effort, effort nonlabored. Cardiac: Regular rate and rhythm, positive S1 and S2. no bruits appreciated bilateral carotids, Radial pulses 2+ bilateral, posterior tibial and dorsal pedal pulses 2+ bilateral. Respiratory: Clear to auscultation all lung chavez Abdomen: Soft, nontender, positive bowel sounds, no palpable masses appreciated on examination Extremities: Symmetric bilateral, patient moving all 4 extremities spontaneously. Patient's right hip demonstrates a recent surgical incision that is erythematous, edematous and has white purulent drainage from the posterior aspect of the incision. Neurologic: Altered mental status, incoherent movements Internal Med - H&P Results - Labs CBC & Chem 7: 09/02/16 00:55 09/02/16 00:55
[2016-09-02] MEDS ORDERED: *HR* LORazepam 2 MG/ML VIAL IVP ONE (00:58)
[2016-09-02] MEDS ORDERED: Piperacillin/Tazobactam 3.375 GM in D5% in Water (Mini-Bag+) 100 ML IVPB SCH ×3 (01:00→17:00)
[2016-09-02 01:18] LABS: Basophils % 0.2 %; Eosinophils # 0.2 K/mcL (0.0-0.6); Eosinophils % 1.8 %; Hematocrit 26.2 % (35.3-44.9); Hemoglobin 8.3 g/dL (11.5-15.4); Immature Granulocytes % 0.6 % (0-4); Lymphocytes # 1.9 K/mcL (0.6-4.6); Lymphocytes % 16.9 %; Mean Corpuscular HGB Conc 31.7 g/dL (31.6-35.5); Mean Corpuscular Hemoglobin 29.4 pg (28.0-33.3); Mean Corpuscular Volume 92.9 fL (83.0-100.0); Mean Platelet Volume 9.8 fL (9.4-12.4); Monocytes # 0.6 K/mcL (0.0-1.3); Monocytes % 5.2 %; Neutrophils # 8.4 K/mcL (1.6-8.9); Platelet Count 474 K/mcL (140-400); Red Blood Count 2.82 M/mcL (3.82-4.97); Red Cell Distribution Width 14.8 % (11.5-14.5); Segmented Neutrophils % 75.3 %
[2016-09-02 01:20] LABS: Albumin 2.6 g/dL (3.5-5.0); Albumin/Globulin Ratio 0.7 (1.1-2.2); Bilirubin,Direct 0.2 mg/dL (0.0-0.5); Bilirubin,Indirect 0.2 mg/dL (0.0-1.2); Bilirubin,Total 0.4 mg/dL (0.2-1.2); Globulin 3.8 g/dL (2.4-3.5); Total Protein 6.4 g/dL (6.0-8.3)
[2016-09-02 01:21] LABS: Albumin 2.6 g/dL (3.5-5.0); Albumin/Globulin Ratio 0.7 (1.1-2.2); Bilirubin,Total 0.4 mg/dL (0.2-1.2); Calcium 8.8 mg/dL (8.6-10.8); Globulin 3.8 g/dL (2.4-3.5); Potassium 4.1 mEq/L (3.5-4.5); Total Protein 6.4 g/dL (6.0-8.3)
[2016-09-02] MEDS: 0.9 % Sodium Chloride 1,000 ML IVC SCH ×2 (01:56→21:56)
[2016-09-02] MEDS: *HR* Heparin 5,000 UNIT/ML VIAL SQ SCH ×2 (06:58→18:38)
[2016-09-02] MEDS: Insulin LISPRO 300 UNITS/3 ML VIAL SQ SCH ×4 (07:30→21:58)
--- NOTE | 2016-09-02 07:56 | Orthopedics Progress Note ---
Date of Encounter: 09/02/16 Time of Encounter: 07:56 Subjective Interval history: Patient seen this morning status post right hip tima-patient has mental status changes. Right hip slight erythema around the incision incision is healed no drainage we will continue to monitor limited concern for hip a source of infection. Objective - Labs CBC & BMP: 09/02/16 00:55 09/02/16 00:55 Labs: Abnormal lab results WBC 11.2 K/mcL (4.3-11.1) H 09/02/16 00:55 RBC 2.82 M/mcL (3.82-4.97) L 09/02/16 00:55 Hgb 8.3 g/dL (11.5-15.4) L 09/02/16 00:55 Hct 26.2 % (35.3-44.9) L 09/02/16 00:55 RDW 14.8 % (11.5-14.5) H 09/02/16 00:55 Plt Count 474 K/mcL (140-400) H 09/02/16 00:55 PT 14.6 Seconds (9.4-12.1) H 09/01/16 19:42 APTT 25.5 Seconds (26.0-36.0) L 09/02/16 00:55 Chloride 112 mEq/L (98-109) H 09/02/16 00:55 BUN 25 mg/dL (7-20) H 09/02/16 00:55 Creatinine 1.29 mg/dL (0.57-1.11) H 09/02/16 00:55 Est GFR ( Amer) 49 (> 60) L 09/02/16 00:55 Est GFR (Non-Af Amer) 40 (> 60) L 09/02/16 00:55 Glucose 155 mg/dL (70-99) H 09/02/16 00:55 POC Glucose 165 (58-89) H 09/01/16 19:18 Calculated Osmolality 302 (280-300) H 09/02/16 00:55 Albumin 2.6 g/dL (3.5-5.0) L 09/02/16 00:55 Globulin 3.8 g/dL (2.4-3.5) H 09/02/16 00:55 Albumin/Globulin Ratio 0.7 (1.1-2.2) L 09/02/16 00:55 TSH 13.315 mcIU/mL (0.350-4.840) H 09/02/16 00:55 Urine Clarity Cloudy (Clear) A 09/01/16 20:54 Ur Specific [place] > 1.030 (1.010-1.025) H 09/01/16 20:54 Urine Bilirubin Moderate (Negative) H 09/01/16 20:54 Ur Squamous Epith Cells Many per lpf (None-Few) H 09/01/16 20:54 Consult Discharge Plan - Plan Referrals: Britany Forrest MD [Primary Care Provider] -
[2016-09-02] MEDS ORDERED: Levofloxacin 750 MG/150 ML 750 MG/150 ML BAG IVPB SCH (09:00)
[2016-09-02] MEDS: amLODIPine 5 MG TABLET PO SCH (09:40)
[2016-09-02] MEDS: Pantoprazole 40 MG VIAL IVP SCH (09:40)
[2016-09-02] MEDS: Aspirin Enteric Coated 325 MG Tablet PO SCH (09:41)
--- NOTE | 2016-09-02 11:36 | Electrocardiograph Report ---
[place] [id number] Test Date: 2016-09-01 Pat Name: Jayne Forrest Department: 102 Room: [facility] Gender: F Rn Care Manager: VIRGIE : 1940 Requested By: Moshe Mckee Order Number: [id number] Reading MD: Britany Finn Measurements Intervals [place] Rate: 103 P: 54 CO: 171 QRS: 43 QRSD: 86 T: 56 QT: 333 QTc: 392 Interpretive Statements SINUS TACHYCARDIA ABNORMAL RHYTHM ECG Electronically Signed On 09-02-2016 11:35:18 EDT by Britany Finn
[2016-09-02] MEDS ORDERED: Vancomycin 1,000 MG in D5% in Water 250 ML IVPB ONE (13:35)
--- NOTE | 2016-09-02 16:02 | Internal Med Progress Note ---
Date of Encounter: 09/02/16 Time of Encounter: 15:59 - Assessment and plan (1) Surgical wound infection Current Visit: Yes Status: Acute Assessment and plan: Reviewed wound cx results - growing MRSA and Pseudomonas Cont broad spec abx Zosyn and Vanco for now d/c fluroquinolones - since fluroquinolones can worsen her delirium Ortho is on board it does not look like she is developing any abscess cont close monitoring Qualifiers: Encounter type: initial encounter Qualified Code(s): T81.4XXA - Infection following a procedure, initial encounter (2) Altered mental status, unspecified Current Visit: Yes Status: Acute Assessment and plan: Due to Surgical site inf blood cx - no growth so far Improving placed on fall precautions her confusion also part of sun down syndrome with dementia will put her on haldol 0.5mg q8hr PRN for agitation Qualifiers: Altered mental status type: unspecified Qualified Code(s): R41.82 - Altered mental status, unspecified (3) S/P hip hemiarthroplasty Current Visit: Yes Status: Acute Assessment and plan: Ortho is on board (4) Acute kidney injury Current Visit: Yes Status: Acute Assessment and plan: Possible MESHA with CKD due to dehydration and inf cot gentle hydration avoid nephro toxic meds (5) Diabetes mellitus Current Visit: Yes Status: Chronic Assessment and plan: cont low dose ISS Qualifiers: Diabetes mellitus type: type 2 Diabetes mellitus complication status: with kidney complications Diabetes mellitus complication detail: with chronic kidney disease 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 Also notd that pt does have erythema and swelling over recent Rt hip surgical incision area with wound cx growing MRSA and Pseudomonas. Pt was placed on PO Bactrim and Levofloxacin. However her symptoms has not improved. Today she is more alert, awake and oriented to sef - Constitutional Vitals: Temp Pulse Resp BP Pulse Ox 98.4 F 85 16 117/74 99 09/02/16 11:12 09/02/16 11:12 09/02/16 11:12 09/02/16 11:12 09/02/16 11:12 General appearance: Present: A&O X 0, pleasant - Respiratory Respiratory exam: Present: CTAB. Absent: accessory muscle use, rales, rhonchi, wheezes - Cardiovascular Cardiovascular exam: Present: RRR, +S1, +S2, systolic murmur - GI/Abdominal GI/Abdominal exam: Present: normal bowel sounds, soft. Absent: rebound, rigid, tenderness - Extremities Exam Additional comments: small 0.5 cm size open wound at the proximal portion of incision area over Rt hip region. No active discharge noticed. mild swelling and erythema noticed around the surgical incision area - Psychiatric Additional comments: demented Internal Medicine: Result - Labs CBC & Chem 7: 09/02/16 00:55 09/02/16 00:55 - ABG Interpretation ABG results: PT/INR, D-dimer PT 14.6 Seconds (9.4-12.1) H 09/01/16 19:42 Consult Discharge Plan - Plan Referrals: Britany Forrest MD [Primary Care Provider] -
[2016-09-02] MEDS: Piperacillin/Tazobactam 3.375 GM in D5% in Water (Mini-Bag+) 100 ML IVPB SCH (21:57)
[2016-09-03 06:11] LABS: Basophils % 0.3 %; Eosinophils # 0.2 K/mcL (0.0-0.6); Eosinophils % 1.6 %; Hemoglobin 8.7 g/dL (11.5-15.4); Immature Granulocytes % 0.4 % (0-4); Lymphocytes # 1.7 K/mcL (0.6-4.6); Lymphocytes % 17.7 %; Mean Corpuscular HGB Conc 32.2 g/dL (31.6-35.5); Mean Corpuscular Hemoglobin 28.9 pg (28.0-33.3); Mean Corpuscular Volume 89.7 fL (83.0-100.0); Mean Platelet Volume 9.9 fL (9.4-12.4); Monocytes # 0.5 K/mcL (0.0-1.3); Monocytes % 5.4 %; Neutrophils # 7.3 K/mcL (1.6-8.9); Platelet Count 542 K/mcL (140-400); Red Blood Count 3.01 M/mcL (3.82-4.97); Red Cell Distribution Width 14.6 % (11.5-14.5); Segmented Neutrophils % 74.6 %
[2016-09-03] MEDS: Piperacillin/Tazobactam 3.375 GM in D5% in Water (Mini-Bag+) 100 ML IVPB SCH ×3 (06:39→22:04)
[2016-09-03] MEDS: *HR* Heparin 5,000 UNIT/ML VIAL SQ SCH ×2 (06:39→17:27)
[2016-09-03 06:48] LABS: Albumin 2.6 g/dL (3.5-5.0); Albumin/Globulin Ratio 0.7 (1.1-2.2); Bilirubin,Total 0.5 mg/dL (0.2-1.2); Calcium 9.1 mg/dL (8.6-10.8); Potassium 3.6 mEq/L (3.5-4.5); Total Protein 6.6 g/dL (6.0-8.3)
[2016-09-03] MEDS: Aspirin Enteric Coated 325 MG Tablet PO SCH (08:11)
[2016-09-03] MEDS: Pantoprazole 40 MG VIAL IVP SCH (08:11)
[2016-09-03] MEDS: Insulin LISPRO 300 UNITS/3 ML VIAL SQ SCH ×4 (08:11→22:18)
[2016-09-03] MEDS: amLODIPine 5 MG TABLET PO SCH (08:11)
[2016-09-03] MEDS: 0.9 % Sodium Chloride 1,000 ML IVC SCH (13:35)
--- NOTE | 2016-09-03 14:57 | Internal Med Progress Note ---
Date of Encounter: 09/03/16 Time of Encounter: 14:53 - Assessment and plan (1) Surgical wound infection Current Visit: Yes Status: Acute Assessment and plan: Reviewed wound cx results - growing MRSA and Pseudomonas Cont broad spec abx Zosyn and Vanco for now d/c fluroquinolones - since fluroquinolones can worsen her delirium Ortho is on board it does not look like she is developing any abscess cont close monitoring her ESR and CRP significantly elevated She may get benefit with 2 weeks IV abx called ID to evaluate the pt and help us about abx choice Qualifiers: Encounter type: initial encounter Qualified Code(s): T81.4XXA - Infection following a procedure, initial encounter (2) Altered mental status, unspecified Current Visit: Yes Status: Acute Assessment and plan: Due to Surgical site inf blood cx - no growth so far Improving Cont on fall precautions her confusion also part of sun down syndrome with dementia will put her on haldol 0.25mg q8hr PRN for agitation Qualifiers: Altered mental status type: unspecified Qualified Code(s): R41.82 - Altered mental status, unspecified (3) S/P hip hemiarthroplasty Current Visit: Yes Status: Acute Assessment and plan: Ortho is on board (4) Acute kidney injury Current Visit: Yes Status: Acute Assessment and plan: Possible MESHA with CKD due to dehydration and inf improved Cr back to baseline She does have CKD-3 avoid nephro toxic meds (5) Diabetes mellitus Current Visit: Yes Status: Chronic Assessment and plan: cont low dose ISS Qualifiers: Diabetes mellitus type: type 2 Diabetes mellitus complication status: with kidney complications Diabetes mellitus complication detail: with chronic kidney disease Diabetes mellitus penitentiary insulin use: without ferry terminal agent use Chronic kidney disease stage: stage 2 (mild) Qualified Code(s): E11.22 - Type 2 diabetes mellitus with diabetic chronic kidney disease; N18.2 - Chronic kidney disease, stage 2 (mild) (6) HTN (hypertension) Current Visit: No Status: Chronic Assessment and plan: stable with home meds cont Norvasc and Metoprolol Qualifiers: Hypertension type: essential hypertension Qualified Code(s): I10 - Essential (primary) hypertension (7) DVT prophylaxis Current Visit: No Status: Acute Assessment and plan: on SQ heparin - Subjective Interval history: Ms. 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 Also notd that pt does have erythema and swelling over recent Rt hip surgical incision area with wound cx growing MRSA and Pseudomonas. Pt was placed on PO Bactrim and Levofloxacin. However her symptoms has not improved. Today she is more alert, awake and oriented to sef. Denied any new complaints - Constitutional Vitals: Temp Pulse Resp BP Pulse Ox 98.9 F 90 19 109/68 98 09/03/16 11:38 09/03/16 11:38 09/03/16 11:38 09/03/16 11:38 09/03/16 11:38 General appearance: Present: A&O X 0, pleasant - Respiratory Respiratory exam: Present: decreased breath sounds, CTAB. Absent: rales, rhonchi, wheezes - Cardiovascular Cardiovascular exam: Present: RRR, +S1, +S2. Absent: diastolic murmur, gallop, rubs, systolic murmur - Extremities Exam Additional comments: improving erythema and swelling over Rt hip surgical incision area. a small open wound at proximal Internal Medicine: Result - Labs CBC & Chem 7: 09/03/16 03:48 09/03/16 03:48 Labs: Short CBC 09/03/16 Range/Units 03:48 WBC 9.8 (4.3-11.1) K/mcL Hgb 8.7 L (11.5-15.4) g/dL Hct 27.0 L (35.3-44.9) % Plt Count 542 H (140-400) K/mcL Neutrophils # 7.3 (1.6-8.9) K/mcL BMP 09/03/16 03:48 Sodium 138 Potassium 3.6 Chloride 108 Carbon Dioxide 20 BUN 13 D Creatinine 1.23 H Glucose 141 H Calcium 9.1 Liver Function 09/03/16 Range/Units 03:48 Total Bilirubin 0.5 (0.2-1.2) mg/dL AST 34 (5-34) Units/L ALT 27 (0-55) Units/L Alkaline Phosphatase 70 (38-126) Units/L Albumin 2.6 L (3.5-5.0) g/dL - ABG Interpretation ABG results: PT/INR, D-dimer PT 14.6 Seconds (9.4-12.1) H 09/01/16 19:42 Consult Discharge Plan - Plan Referrals: Britany Forrest MD [Primary Care Provider] -
[2016-09-03] MEDS ORDERED: Vancomycin 1,000 MG in D5% in Water 250 ML IVPB ONE (18:00)
[2016-09-03] MEDS: Temazepam 15 MG CAPSULE PO PRN (22:04)
--- NOTE | 2016-09-04 06:39 | Orthopedics Progress Note ---
Date of Encounter: 09/04/16 Time of Encounter: 06:38 Subjective Interval history: Patient seen this morning resting comfortably examination of right hip reveals incision well healed no drainage or erythema somewhat improved patient being discharged on antibiotics will follow up in 1 week. Objective Vital signs: Vital Signs Temp Pulse Resp BP Pulse Ox 09/04/16 04:26 98.0 F 15 123/71 92 09/03/16 20:51 98.0 F 112 15 137/79 100 09/03/16 15:14 98.2 F 75 18 130/73 98 09/03/16 11:38 98.9 F 90 19 109/68 98 Intake and Output 09/03/16 09/03/16 09/04/16 15:59 23:59 07:59 Intake Total 1220 / 1220 400 / 400 Output Total 100 / 100 550 / 550 Balance 1120 / 1120 -150 / -150 Intake: IV Fluids 1100 / 1100 100 / 100 0.9 % Sodium Chloride 1, 1000 / 1000 000 ML @ 75 mls/hr IVC . [id number] [facility] Rx#: [id number] Zosyn 3.375 GM In 100 / 100 100 / 100 Dextrose 5% (Minibag+) 100 ML 100 ML @ 25 mls/hr IVPB Q8H [facility] Rx#: [id number] Oral 120 / 120 300 / 300 Output: Urine 100 / 100 550 / 550 Other: Meal Breakfast Percent of Meal Consumed 30% # Voids 1 1 # Bowel Movements 0 Weight 85 kg Blood Glucose* 176 190 Patient Weight 09/04/16 23:59 Weight 85 kg - Labs CBC & BMP: 09/03/16 03:48 09/03/16 03:48 Labs: Abnormal lab results RBC 3.01 M/mcL (3.82-4.97) L 09/03/16 03:48 Hgb 8.7 g/dL (11.5-15.4) L 09/03/16 03:48 Hct 27.0 % (35.3-44.9) L 09/03/16 03:48 RDW 14.6 % (11.5-14.5) H 09/03/16 03:48 Plt Count 542 K/mcL (140-400) H 09/03/16 03:48 ESR 91 mm/hr (0-15) H 09/03/16 03:48 PT 14.6 Seconds (9.4-12.1) H 09/01/16 19:42 APTT 25.5 Seconds (26.0-36.0) L 09/02/16 00:55 Creatinine 1.23 mg/dL (0.57-1.11) H 09/03/16 03:48 Est GFR ( Amer) 51 (> 60) L 09/03/16 03:48 Est GFR (Non-Af Amer) 42 (> 60) L 09/03/16 03:48 Glucose 141 mg/dL (70-99) H 09/03/16 03:48 POC Glucose 190 (58-89) H 09/03/16 20:27 C-Reactive Protein 76 mg/L (Less than 5) H 09/03/16 03:48 Albumin 2.6 g/dL (3.5-5.0) L 09/03/16 03:48 Globulin 4.0 g/dL (2.4-3.5) H 09/03/16 03:48 Albumin/Globulin Ratio 0.7 (1.1-2.2) L 09/03/16 03:48 TSH 13.315 mcIU/mL (0.350-4.840) H 09/02/16 00:55 Urine Clarity Cloudy (Clear) A 09/01/16 20:54 Ur Specific [place] > 1.030 (1.010-1.025) H 09/01/16 20:54 Urine Bilirubin Moderate (Negative) H 09/01/16 20:54 Ur Squamous Epith Cells Many per lpf (None-Few) H 09/01/16 20:54 Vancomycin Trough 22.3 mcg/mL (10-20) H* 09/03/16 03:48 Consult Discharge Plan - Plan Referrals: Britany Forrest MD [Primary Care Provider] -
[2016-09-04] MEDS: Piperacillin/Tazobactam 3.375 GM in D5% in Water (Mini-Bag+) 100 ML IVPB SCH ×2 (06:50→14:51)
[2016-09-04] MEDS: *HR* Heparin 5,000 UNIT/ML VIAL SQ SCH ×2 (06:52→17:19)
[2016-09-04] MEDS: Insulin LISPRO 300 UNITS/3 ML VIAL SQ SCH ×4 (07:46→20:17)
[2016-09-04] MEDS: Aspirin Enteric Coated 325 MG Tablet PO SCH (07:47)
[2016-09-04] MEDS: amLODIPine 5 MG TABLET PO SCH (07:47)
[2016-09-04] MEDS: Pantoprazole 40 MG VIAL IVP SCH (07:47)
[2016-09-04 13:06] LABS: BUN/Creatinine Ratio 10 (6-26); Blood Urea Nitrogen 10 mg/dL (7-20); Calcium 8.9 mg/dL (8.6-10.8); Carbon Dioxide 24 mEq/L (19-29); Chloride 107 mEq/L (98-109); Glucose 133 mg/dL (70-99); Osmolality,Calculated 289 (280-300); Potassium 3.7 mEq/L (3.5-4.5); Sodium 139 mEq/L (136-145); eGFR For African Americans > 60 (> 60); eGFR For Non-African Americans 55 (> 60)
[2016-09-04] MEDS ORDERED: Lidocaine -MPF 1% 5 ML AMPUL INFILT ONE (13:07)
--- NOTE | 2016-09-04 15:47 | Infectious Disease Consult ---
Date of Encounter: 09/04/16 Time of Encounter: 15:42 Assessment and Plan (1) Surgical wound infection Status: Acute Assessment and plan: Location: Right lateral hip status post right hip hemiarthroplasty 07/27/16. Causative organism PSEA and MRSA. CT scan of the hip does not show evidence of deep infection or abscess. Failed outpatient oral antibiotics. ESR 91, CRP 76. Ortho consulted --> No surgical intervention required. Improved per patient report. Continue Vancomycin IV. Pharmacy to dose. Goal trough approximately 15. Discontinue Zosyn and start Cefepime 2 grams IV Q12H. Duration of treatment depends on the clinical picture, but since the patient's ESR and CRP are so elevated and she failed outpatient oral antibiotics, we will proceed with at least two weeks of IV antibiotics. Additionally, the patient is at high risk if the hardware gets infected and she has to go back to surgery, so we will treat aggressively with IV antibiotics. Actual duration of treatment will be based on how the patient does clinically and her inflammatory markers. Consult VAT for PICC line placement. Monitor renal function and for drug toxicity and dose-adjust antibiotics. Get weekly CBC, BUN/Cr, ESR, CRP, and Vanc trough every Wednesday for the duration of IV therapy. Weekly PICC care per protocol. Follow up with ID 09/14/16 at 0830. Qualifiers: Encounter type: initial encounter Qualified Code(s): T81.4XXA - Infection following a procedure, initial encounter (2) Acute kidney injury Status: Acute Assessment and plan: Likely secondary to surgical site infection and/or Bactrim use. Resolved. Continue to monitor renal function and dose-adjust antibiotics. (3) Altered mental status, unspecified Status: Acute Assessment and plan: Likely secondary to infection. Improved. Per family, she is back to baseline. CT head negative. Continue to monitor closely. Qualifiers: Altered mental status type: unspecified Qualified Code(s): R41.82 - Altered mental status, unspecified (4) Fracture of hip, right, closed Status: Resolved Assessment and plan: Status post right hip hemiarthroplasty 07/27/[address] Freeman. Qualifiers: Encounter type: initial encounter Qualified Code(s): S72.001A - Fracture of unspecified part of neck of right femur, initial encounter for closed fracture (5) Lewy body dementia with behavioral disturbance Status: Chronic (6) HTN (hypertension) Status: Chronic Qualifiers: Hypertension type: essential hypertension Qualified Code(s): I10 - Essential (primary) hypertension (7) Chronic kidney disease Status: Chronic Qualifiers: Chronic kidney disease stage: stage 3 (moderate) Qualified Code(s): N18.3 - Chronic kidney disease, stage 3 (moderate) Infectious Disease HPI - Data of Consult Patient: new to practice Consult date: 09/04/16 Requesting Physician: Familia Callaway MD Primary Care Provider: Britany Forrest MD - Consult Narrative Reason for consult: Right hip cellulitis History of present illness: Ms. Forrest is a 76 year old female with past medical history of Lewy body dementia, diabetes, hyperlipidemia, right hip fracture status post right hip hemiarthroplasty July 27, 2016, and hypertension. The patient was admitted to the hospital September 01 for acute kidney injury, altered mental status, and right hip cellulitis. We are consulted September 04 for antibiotic recommendations regarding right hip cellulitis. Patient is 76-year-old female with past medical history as stated above. The patient apparently fell back in July sustaining a right hip fracture. She underwent a right hip hemiarthroplasty and was discharged to a local extended care facility. About a week prior to admission, the patient's hip incision was noted to have green drainage. A culture was obtained and grew out pansensitive pseudomonas and MRSA. She was started on oral Bactrim and Levaquin which improved the drainage, but the patient began to develop altered mental status for 2 days prior to admission. She was seen by her PCP and there is concern for stroke and she was subsequently referred to the ER. Upon arrival, the patient was afebrile, but she was tachycardic she. She had a very slight leukocytosis and acute kidney injury. LFTs were normal as well is troponin and lactic acid. Urinalysis was obtained and was not indicative for a urinary tract infection, the urine culture grew out Enterococcus faecalis. Blood cultures were obtained 2 sets are no growth to date. A CT of the right hip showed fat straining within the subcutaneous fat on the right hip with a small amount of gas that could be related to recent surgical procedure. There is no abscess noted on the CAT scan. The patient was started on empiric IV vancomycin and Zosyn. She was admitted to the hospital for further evaluation and treatment. Since admission, the patient's leukocytosis has resolved. Orthopedics was consulted and did not deem her right hip to need surgical intervention. Her acute kidney injury has resolved. Her ESR is very elevated at 91 with a CRP of 76 however. During my exam today, the patient is seen with her family at the bedside who endorsed a history as stated above. She denies any fevers or chills or shivers prior to admission. She denies any headache or neck pain. She denies any congestion, earache, or sore throat. She denies any chest pain, fullness of breath, or cough. She denies any nausea, vomiting, diarrhea, constipation. She denies abdominal pain, but states her appetite was very poor prior to admission but seems to be getting better now. She complains of some mild pain at the site of her surgical procedure, but otherwise denies pain. The patient's family states that overall her mental status is back to baseline at this time. She denies oral thrush or any skin lesions. She does report that she was having drainage from her right hip incision about a week ago that was green in color, but that seems to be better. She does report some pain with range of motion and physical therapy exercises. CC: Familia Callaway MD Past Med Surg Social Fam HX - Past Medical History Attestation: Yes The following information was validated with the patient. Source: patient, old records reviewed, obtained from family, nursing notes reviewed Medical history: cancer (Previous history of breast cancer), diabetes, hyperlipidemia, hypertension, other (Lewy Body Dementia) Psychiatric history: no psych history - Past Surgical History Surgical History: hysterectomy - Social History Smoking Status: Never smoker Smokeless Tobacco Status: No Alcohol use: none Drug use: none Occupational status: unemployed Current living situation: [facility] Activity Level: Uses cane/walker Recent Out of Country Travel Within the Last 8 Weeks: No Exposure or Possible Exposure to Illness During Travel: No - Family History Mother Living Status: Hx Family Cardiac Disorders: Yes (HTN) Hx Family Neurologic Disorders: Yes (Dementia) Father Living Status: Hx Family Cancer: Yes (Lung) Infectious Disease-CN:Meds Metoprolol [Lopressor] 50 mg PO BID 01/15/16 [History] amLODIPine [Norvasc] 5 mg PO DAILY #30 tablet 01/20/16 [Rx] Calcium Carbonate/Vitamin D3 [Calcium 500 + Vit D Caplet] 1 each PO DAILY [History] Cholecalciferol (D-3) [Vitamin D] 2,000 unit PO DAILY 07/27/16 [History] Omeprazole [PriLOSEC] 40 mg PO DAILY 07/27/16 [History] Simvastatin [Zocor] 40 mg PO DAILY 07/27/16 [History] HYDROcodone/Acet 5/325 mg [Sasser 5-325 mg] 1 tab PO BID PRN #30 tablet 07/31/16 [Rx] Temazepam [Restoril] 15 mg PO HS PRN #20 capsule 07/31/16 [Rx] Amitriptyline [Elavil] 20 mg PO HS 09/01/16 [History] Aspirin Enteric Coated [Aspirin EC] 325 mg PO DAILY 09/01/16 [History] Citalopram Hydrobromide [Celexa] 40 mg PO DAILY 09/01/16 [History] Levothyroxine [Synthroid] 50 mcg PO 0630 09/01/16 [History] Allergies Oxycodone [From Percocet] Allergy (Verified 09/01/16 17:58) Itching All systems: reviewed and no additional remarkable complaints except as stated Exam - Constitutional Vitals: Temp Pulse Resp BP Pulse Ox 98.4 F 80 16 108/58 95 09/04/16 10:58 09/04/16 10:58 09/04/16 10:58 09/04/16 10:58 09/04/16 10:58 General appearance: average body habitus, cooperative, no acute distress - Head Head exam: Present: atraumatic, normal inspection, normocephalic - Eye Eye exam: Present: EOMI, normal appearance, PERRL Pupils: Present: normal accommodation - ENT ENT exam: Present: mucous membranes moist - Neck Neck exam: Present: normal inspection - Respiratory Respiratory exam: Present: CTAB. Absent: rales, respiratory distress, rhonchi, wheezes - Cardiovascular Cardiovascular exam: Present: RRR, +S1, +S2 - GI/Abdominal GI/Abdominal exam: Present: normal bowel sounds, soft. Absent: distended, tenderness - Extremities Exam Extremities exam: Present: tenderness (right hip). Absent: pedal edema Additional comments: Right lateral hip incision with wound edges well-approximated and without drainage. Erythema and warmth noted to the skin surrounding the incision. Tenderness noted with palpation. No fluctuance noted. ROM not assessed. - Neurological Exam Neurological exam: Present: alert, oriented X3, no focal deficits - Psychiatric Psychiatric exam: Present: normal affect, normal mood - Skin Skin exam: Present: dry, intact, normal color, warm Infectious Disease CN: Results - Labs CBC & Chem 7: 09/06/16 04:20 09/06/16 04:20 Consult Discharge Plan - Plan Referrals: Britany Forrest MD [Primary Care Provider] - Debra Harkins CNP [Advanced Practice Nurse] - 09/14/16 8:30 am
--- NOTE | 2016-09-04 16:26 | Internal Med Progress Note ---
Date of Encounter: 09/04/16 Time of Encounter: 16:22 - Assessment and plan (1) Surgical wound infection Current Visit: Yes Status: Acute Assessment and plan: Reviewed wound cx results - growing MRSA and Pseudomonas ID evaluated the pt and recommend for 2 weeks IV abx changed to Cefepime and cont Vancomycin Ortho is on board it does not look like she is developing any abscess cont close monitoring Cont trend on ESR and CRP Qualifiers: Encounter type: initial encounter Qualified Code(s): T81.4XXA - Infection following a procedure, initial encounter (2) Altered mental status, unspecified Current Visit: Yes Status: Acute Assessment and plan: Due to Surgical site inf blood cx - no growth so far Improving Cont on fall precautions her confusion also part of sun down syndrome with dementia Qualifiers: Altered mental status type: unspecified Qualified Code(s): R41.82 - Altered mental status, unspecified (3) S/P hip hemiarthroplasty Current Visit: Yes Status: Acute Assessment and plan: Ortho is on board (4) Acute kidney injury Current Visit: Yes Status: Acute Assessment and plan: Possible MESHA with CKD due to dehydration and inf improved Cr back to baseline She does have CKD-3 avoid nephro toxic meds (5) Diabetes mellitus Current Visit: Yes Status: Chronic Assessment and plan: cont low dose ISS Qualifiers: Diabetes mellitus type: type 2 Diabetes mellitus complication status: with kidney complications Diabetes mellitus complication detail: with chronic kidney disease Diabetes mellitus snf insulin use: without snf use Chronic kidney disease stage: stage 2 (mild) Qualified Code(s): E11.22 - Type 2 diabetes mellitus with diabetic chronic kidney disease; N18.2 - Chronic kidney disease, stage 2 (mild) (6) UTI (urinary tract infection) due to Enterococcus Current Visit: Yes Status: Acute Assessment and plan: Cont empirical abx cefepime (7) HTN (hypertension) Current Visit: No Status: Chronic Assessment and plan: stable with home meds cont Norvasc and Metoprolol Qualifiers: Hypertension type: essential hypertension Qualified Code(s): I10 - Essential (primary) hypertension (8) DVT prophylaxis Current Visit: No Status: Acute Assessment and plan: on SQ heparin (9) Physical deconditioning Current Visit: Yes Status: Acute Assessment and plan: May need short term PT / OT at [facility] CM / SW working on it Medically stable to d/c in AM - Subjective Interval history: Ms. 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 Also notd that pt does have erythema and swelling over recent Rt hip surgical incision area with wound cx growing MRSA and Pseudomonas. Pt was placed on PO Bactrim and Levofloxacin. However her symptoms has not improved.pt was admitted here and started on broad spectrum IV abx. Today she is more alert, awake and oriented to sef. Denied any new complaints - Constitutional Vitals: Temp Pulse Resp BP Pulse Ox 98.9 F 85 16 126/75 99 09/04/16 15:37 09/04/16 15:37 09/04/16 15:37 09/04/16 15:37 09/04/16 15:37 General appearance: Present: A&O X 0, pleasant - Respiratory Respiratory exam: Present: decreased breath sounds. Absent: rales, rhonchi, wheezes - Cardiovascular Cardiovascular exam: Present: RRR, +S1, +S2. Absent: diastolic murmur, gallop, rubs, systolic murmur - Extremities Exam Extremities exam: Absent: calf tenderness, tenderness Additional comments: improving erythema and swelling over Rt hip noticed - Psychiatric Additional comments: pleasantly demented Internal Medicine: Result - Labs CBC & Chem 7: 09/03/16 03:48 09/04/16 12:33 Labs: BMP 09/04/16 12:33 Sodium 139 Potassium 3.7 Chloride 107 Carbon Dioxide 24 BUN 10 Creatinine 0.98 Glucose 133 H Calcium 8.9 - ABG Interpretation ABG results: PT/INR, D-dimer PT 14.6 Seconds (9.4-12.1) H 09/01/16 19:42 Consult Discharge Plan - Plan Referrals: Debra Harkins CNP [Advanced Practice Nurse] - 09/14/16 8:30 am Britany Forrest MD [Primary Care Provider] -
[2016-09-04] MEDS: Cefepime HCl 2,000 MG in D5% in Water (Mini-Bag+) 100 ML IVPB SCH (17:44)
[2016-09-04] MEDS: Vancomycin 1,000 MG in D5% in Water 250 ML IVPB SCH (20:10)
[2016-09-04] MEDS: Temazepam 15 MG CAPSULE PO PRN (20:15)
[2016-09-05] MEDS: *HR* Heparin 5,000 UNIT/ML VIAL SQ SCH ×2 (06:14→17:21)
[2016-09-05] MEDS: Cefepime HCl 2,000 MG in D5% in Water (Mini-Bag+) 100 ML IVPB SCH (06:17)
[2016-09-05] MEDS: Insulin LISPRO 300 UNITS/3 ML VIAL SQ SCH ×4 (07:56→21:29)
[2016-09-05] MEDS: Pantoprazole 40 MG VIAL IVP SCH (07:56)
[2016-09-05] MEDS: amLODIPine 5 MG TABLET PO SCH (07:56)
[2016-09-05] MEDS: Aspirin Enteric Coated 325 MG Tablet PO SCH (07:56)
[2016-09-05] MEDS ORDERED: Acetaminophen 325 MG TABLET PO PRN (10:25)
--- NOTE | 2016-09-05 13:10 | Internal Med Progress Note ---
Date of Encounter: 09/05/16 Time of Encounter: 13:08 - Assessment and plan (1) Surgical wound infection Current Visit: Yes Status: Acute Assessment and plan: Reviewed wound cx results - growing MRSA and Pseudomonas blood cx - no growth so far ID evaluated the pt and recommend for 2 weeks IV abx Cont Cefepime and Vancomycin # 2/ Ortho is on board it does not look like she is developing any abscess cont close monitoring Cont trend on ESR and CRP Qualifiers: Encounter type: initial encounter Qualified Code(s): T81.4XXA - Infection following a procedure, initial encounter (2) Altered mental status, unspecified Current Visit: Yes Status: Acute Assessment and plan: Due to Surgical site inf blood cx - no growth so far Improved...back to baseline mental status clemente Cont on fall precautions her confusion also part of sun down syndrome with dementia Qualifiers: Altered mental status type: unspecified Qualified Code(s): R41.82 - Altered mental status, unspecified (3) S/P hip hemiarthroplasty Current Visit: Yes Status: Acute Assessment and plan: Ortho is on board (4) Acute kidney injury Current Visit: Yes Status: Acute Assessment and plan: Possible MESHA with CKD due to dehydration and inf improved Cr back to baseline She does have CKD-3 avoid nephro toxic meds (5) Diabetes mellitus Current Visit: Yes Status: Chronic Assessment and plan: cont low dose ISS Qualifiers: Diabetes mellitus type: type 2 Diabetes mellitus complication status: with kidney complications Diabetes mellitus complication detail: with chronic kidney disease 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 Chronic kidney disease stage: stage 2 (mild) Qualified Code(s): E11.22 - Type 2 diabetes mellitus with diabetic chronic kidney disease; N18.2 - Chronic kidney disease, stage 2 (mild) (6) UTI (urinary tract infection) due to Enterococcus Current Visit: Yes Status: Acute Assessment and plan: Cont empirical abx cefepime (7) HTN (hypertension) Current Visit: No Status: Chronic Assessment and plan: stable with home meds cont Norvasc and Metoprolol Qualifiers: Hypertension type: essential hypertension Qualified Code(s): I10 - Essential (primary) hypertension (8) DVT prophylaxis Current Visit: No Status: Acute Assessment and plan: on SQ heparin (9) Physical deconditioning Current Visit: Yes Status: Acute Assessment and plan: May need short term PT / OT at [facility] CM / SW working on it Waiting on placement - Subjective Interval history: Ms. 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 Also notd that pt does have erythema and swelling over recent Rt hip surgical incision area with wound cx growing MRSA and Pseudomonas. Pt was placed on PO Bactrim and Levofloxacin. However her symptoms has not improved. pt was admitted here and started on broad spectrum IV abx. Today she is more alert, awake and oriented to sef. Denied any new complaints. Resting comfortably - Constitutional Vitals: Temp Pulse Resp BP Pulse Ox 99.3 F 89 16 102/67 96 09/05/16 11:00 09/05/16 11:00 09/05/16 11:00 09/05/16 11:00 09/05/16 11:00 General appearance: Present: A&O X 0, pleasant - Respiratory Respiratory exam: Present: decreased breath sounds. Absent: accessory muscle use, rales, respiratory distress, rhonchi, wheezes - Cardiovascular Cardiovascular exam: Present: RRR, +S1, +S2. Absent: diastolic murmur, systolic murmur - GI/Abdominal GI/Abdominal exam: Present: normal bowel sounds, soft. Absent: rebound, tenderness - Extremities Exam Additional comments: improving erythema and tenderness over Rt hip lateral region. No active discharge / drainage noticed - Psychiatric Additional comments: pleasantly demented Internal Medicine: Result - Labs CBC & Chem 7: 09/03/16 03:48 09/04/16 12:33 - ABG Interpretation ABG results: PT/INR, D-dimer PT 14.6 Seconds (9.4-12.1) H 09/01/16 19:42 Consult Discharge Plan - Plan Referrals: Debra Harkins CNP [Advanced Practice Nurse] - 09/14/16 8:30 am Britany Forrest MD [Primary Care Provider] -
[2016-09-05] MEDS: Vancomycin 1,000 MG in D5% in Water 250 ML IVPB SCH (20:20)
[2016-09-05] MEDS: Temazepam 15 MG CAPSULE PO PRN (20:21)
[2016-09-06 04:36] LABS: Basophils % 0.3 %; Eosinophils # 0.1 K/mcL (0.0-0.6); Eosinophils % 1.9 %; Hematocrit 25.8 % (35.3-44.9); Immature Granulocytes % 0.4 % (0-4); Lymphocytes # 1.6 K/mcL (0.6-4.6); Mean Corpuscular Hemoglobin 28.6 pg (28.0-33.3); Mean Corpuscular Volume 92.1 fL (83.0-100.0); Mean Platelet Volume 9.4 fL (9.4-12.4); Monocytes # 0.5 K/mcL (0.0-1.3); Neutrophils # 4.7 K/mcL (1.6-8.9); Platelet Count 453 K/mcL (140-400); Red Cell Distribution Width 14.8 % (11.5-14.5); Segmented Neutrophils % 67.4 %
[2016-09-06 04:46] LABS: BUN/Creatinine Ratio 15 (6-26); Blood Urea Nitrogen 14 mg/dL (7-20); C-Reactive Protein 22 mg/L (Less than 5); Calcium 8.6 mg/dL (8.6-10.8); Carbon Dioxide 24 mEq/L (19-29); Chloride 110 mEq/L (98-109); Glucose 122 mg/dL (70-99); Osmolality,Calculated 294 (280-300); Potassium 3.3 mEq/L (3.5-4.5); Sodium 141 mEq/L (136-145); eGFR For African Americans > 60 (> 60); eGFR For Non-African Americans 58 (> 60)
[2016-09-06] MEDS: *HR* Heparin 5,000 UNIT/ML VIAL SQ SCH ×2 (05:51→17:08)
[2016-09-06] MEDS: Cefepime HCl 2,000 MG in D5% in Water (Mini-Bag+) 100 ML IVPB SCH (05:52)
[2016-09-06] MEDS: Insulin LISPRO 300 UNITS/3 ML VIAL SQ SCH ×4 (08:20→20:24)
[2016-09-06] MEDS: amLODIPine 5 MG TABLET PO SCH (08:21)
[2016-09-06] MEDS: Aspirin Enteric Coated 325 MG Tablet PO SCH (08:21)
--- NOTE | 2016-09-06 13:11 | Internal Med Progress Note ---
Date of Encounter: 09/06/16 Time of Encounter: 13:08 - Assessment and plan (1) Surgical wound infection Current Visit: Yes Status: Acute Assessment and plan: Wound cx - growing MRSA and Pseudomonas blood cx - no growth so far ID evaluated the pt and recommend for 2 weeks IV abx Cont Cefepime and Vancomycin # 3/ Ortho is on board it does not look like she is developing any abscess cont close monitoring Qualifiers: Encounter type: initial encounter Qualified Code(s): T81.4XXA - Infection following a procedure, initial encounter (2) Altered mental status, unspecified Current Visit: Yes Status: Acute Assessment and plan: Due to Surgical site inf blood cx - no growth so far Improved...back to baseline mental status clemente strict fall precautions her confusion also part of sun down syndrome with dementia Qualifiers: Altered mental status type: unspecified Qualified Code(s): R41.82 - Altered mental status, unspecified (3) S/P hip hemiarthroplasty Current Visit: Yes Status: Acute Assessment and plan: stable (4) Acute kidney injury Current Visit: Yes Status: Acute Assessment and plan: Possible MESHA with CKD due to dehydration and inf improved Cr back to baseline She does have CKD-3 avoid nephro toxic meds (5) UTI (urinary tract infection) due to Enterococcus Current Visit: Yes Status: Acute Assessment and plan: Cont empirical abx cefepime (6) Diabetes mellitus Current Visit: Yes Status: Chronic Assessment and plan: cont low dose ISS Qualifiers: Diabetes mellitus type: type 2 Diabetes mellitus complication status: with kidney complications Diabetes mellitus complication detail: with chronic kidney disease Diabetes mellitus long-term insulin 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 Chronic kidney disease stage: stage 2 (mild) Qualified Code(s): E11.22 - Type 2 diabetes mellitus with diabetic chronic kidney disease; N18.2 - Chronic kidney disease, stage 2 (mild) (7) HTN (hypertension) Current Visit: No Status: Chronic Assessment and plan: stable with home meds cont Norvasc and Metoprolol Qualifiers: Hypertension type: essential hypertension Qualified Code(s): I10 - Essential (primary) hypertension (8) DVT prophylaxis Current Visit: No Status: Acute Assessment and plan: on SQ heparin (9) Physical deconditioning Current Visit: Yes Status: Acute Assessment and plan: May need short term PT / OT at [facility] CM / SW working on it Waiting on placement - Subjective Interval history: Ms. 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 Also notd that pt does have erythema and swelling over recent Rt hip surgical incision area with wound cx growing MRSA and Pseudomonas. Pt was placed on PO Bactrim and Levofloxacin. However her symptoms has not improved. pt was admitted here and started on broad spectrum IV abx. Today she is more alert, awake and oriented to sef. Denied any new complaints. Resting comfortably - Constitutional Vitals: Temp Pulse Resp BP Pulse Ox 98.1 F 93 16 114/73 95 09/06/16 10:00 09/06/16 10:00 09/06/16 10:00 09/06/16 10:00 09/06/16 10:00 General appearance: Present: A&O X 0, pleasant - Respiratory Respiratory exam: Present: decreased breath sounds. Absent: respiratory distress, rhonchi, wheezes - Cardiovascular Cardiovascular exam: Present: RRR, +S1, +S2. Absent: systolic murmur - GI/Abdominal GI/Abdominal exam: Present: normal bowel sounds, soft. Absent: distended, rebound - Extremities Exam Additional comments: improving erythema and tenderness over Rt hip lateral region. No active discharge / drainage noticed - Psychiatric Additional comments: demented Internal Medicine: Result - Labs CBC & Chem 7: 09/06/16 04:20 09/06/16 04:20 Labs: Short CBC 09/06/16 Range/Units 04:20 WBC 7.0 (4.3-11.1) K/mcL Hgb 8.0 L (11.5-15.4) g/dL Hct 25.8 L (35.3-44.9) % Plt Count 453 H (140-400) K/mcL Neutrophils # 4.7 (1.6-8.9) K/mcL BMP 09/06/16 04:20 Sodium 141 Potassium 3.3 L Chloride 110 H Carbon Dioxide 24 BUN 14 Creatinine 0.94 Glucose 122 H Calcium 8.6 - ABG Interpretation ABG results: PT/INR, D-dimer PT 14.6 Seconds (9.4-12.1) H 09/01/16 19:42 Consult Discharge Plan - Plan Referrals: Debra Harkins CNP [Advanced Practice Nurse] - 09/14/16 8:30 am Britany Forrest MD [Primary Care Provider] -
[2016-09-06] MEDS: Temazepam 15 MG CAPSULE PO PRN (20:25)
[2016-09-06] MEDS: Vancomycin 1,000 MG in D5% in Water 250 ML IVPB SCH (20:25)
[2016-09-07] MEDS: *HR* Heparin 5,000 UNIT/ML VIAL SQ SCH (05:49)
[2016-09-07] MEDS: Cefepime HCl 2,000 MG in D5% in Water (Mini-Bag+) 100 ML IVPB SCH (05:49)
--- NOTE | 2016-09-07 06:42 | Orthopedics Progress Note ---
Date of Encounter: 09/07/16 Time of Encounter: 06:41 Subjective Interval history: Patient seen this morning family noticed bloody drainage on her nightgown. Examination reveals purulent drainage from distal pole of incision palpable indurated area with increasing cellulitis. Rest of incision well-healed no erythema and no sign of infection. Patient appears to have a localized superficial abscess or conditions for irrigation debridement and operating room. Patient will be add-on schedule today. Objective Vital signs: Vital Signs Temp Pulse Resp BP Pulse Ox 09/07/16 05:48 98.5 F 88 16 128/84 96 09/06/16 23:26 99.1 F 86 18 122/78 96 09/06/16 20:33 98.3 F 91 16 130/77 97 09/06/16 15:07 97.8 F 87 16 118/64 94 09/06/16 10:00 98.1 F 93 16 114/73 95 09/06/16 07:05 98.3 F 87 16 118/67 96 Intake and Output 09/06/16 09/06/16 09/07/16 15:59 23:59 07:59 Intake Total 240 / 240 100 / 100 Output Total 350 / 350 1200 / 1200 300 / 300 Balance -110 / -110 -1100 / -1100 -300 / -300 Intake: IV Fluids 100 / 100 Maxipime 2,000 MG In 100 / 100 Dextrose 5% (Minibag+) 100 ML 100 ML @ 200 mls/ hr IVPB Q24H [facility] Rx#: [id number] Oral 240 / 240 Output: Urine 350 / 350 1200 / 1200 300 / 300 Other: Meal Lunch Percent of Meal Consumed 60% Stool Size Copious Stool Consistency soft Stool Characteristics Normal for Patient Stool Color Brown # Bowel Movements 1 Weight 65.1 kg Blood Glucose* 244 170 Patient Weight 09/07/16 23:59 Weight 65.1 kg - Labs CBC & BMP: 09/06/16 04:20 09/06/16 04:20 Labs: Abnormal lab results RBC 2.80 M/mcL (3.82-4.97) L 09/06/16 04:20 Hgb 8.0 g/dL (11.5-15.4) L 09/06/16 04:20 Hct 25.8 % (35.3-44.9) L 09/06/16 04:20 MCHC 31.0 g/dL (31.6-35.5) L 09/06/16 04:20 RDW 14.8 % (11.5-14.5) H 09/06/16 04:20 Plt Count 453 K/mcL (140-400) H 09/06/16 04:20 ESR 54 mm/hr (0-15) H 09/06/16 04:20 PT 14.6 Seconds (9.4-12.1) H 09/01/16 19:42 APTT 25.5 Seconds (26.0-36.0) L 09/02/16 00:55 Potassium 3.3 mEq/L (3.5-4.5) L 09/06/16 04:20 Chloride 110 mEq/L (98-109) H 09/06/16 04:20 Est GFR (Non-Af Amer) 58 (> 60) L 09/06/16 04:20 Glucose 122 mg/dL (70-99) H 09/06/16 04:20 POC Glucose 170 (58-89) H 09/06/16 20:24 C-Reactive Protein 22 mg/L (Less than 5) H 09/06/16 04:20 Albumin 2.6 g/dL (3.5-5.0) L 09/03/16 03:48 Globulin 4.0 g/dL (2.4-3.5) H 09/03/16 03:48 Albumin/Globulin Ratio 0.7 (1.1-2.2) L 09/03/16 03:48 TSH 13.315 mcIU/mL (0.350-4.840) H 09/02/16 00:55 Urine Clarity Cloudy (Clear) A 09/01/16 20:54 Ur Specific [place] > 1.030 (1.010-1.025) H 09/01/16 20:54 Urine Bilirubin Moderate (Negative) H 09/01/16 20:54 Ur Squamous Epith Cells Many per lpf (None-Few) H 09/01/16 20:54 Consult Discharge Plan - Plan Referrals: Debra Harkins CNP [Advanced Practice Nurse] - 09/14/16 8:30 am Britany Forrest MD [Primary Care Provider] -
[2016-09-07] MEDS: Insulin LISPRO 300 UNITS/3 ML VIAL SQ SCH ×4 (09:28→23:12)
[2016-09-07] MEDS: Aspirin Enteric Coated 325 MG Tablet PO SCH (09:28)
[2016-09-07] MEDS: amLODIPine 5 MG TABLET PO SCH (09:28)
[2016-09-07 12:21] LABS: BUN/Creatinine Ratio 14 (6-26); Blood Urea Nitrogen 11 mg/dL (7-20); Calcium 9.3 mg/dL (8.6-10.8); Carbon Dioxide 28 mEq/L (19-29); Chloride 107 mEq/L (98-109); Glucose 100 mg/dL (70-99); Osmolality,Calculated 287 (280-300); Potassium 3.7 mEq/L (3.5-4.5); Sodium 139 mEq/L (136-145); eGFR For African Americans > 60 (> 60); eGFR For Non-African Americans > 60 (> 60)
--- NOTE | 2016-09-07 12:37 | Infectious Disease Progress No ---
Date of Encounter: 09/07/16 Time of Encounter: 12:34 - Assessment and Plan (1) Surgical wound infection Current Visit: Yes Status: Acute Location: Right lateral hip status post right hip hemiarthroplasty 07/27/16. Causative organism PSEA and MRSA. CT scan of the hip does not show evidence of deep infection or abscess. Failed outpatient oral antibiotics. Ortho consulted and following. The patient had wound dehiscence with drainage over the weekend. Planned to go to surgery for I & D later today. Await intra-operative findings. ESR 91, CRP 76. Continue Vancomycin IV. Pharmacy to dose. Goal trough approximately 15. Continue Cefepime 2 grams IV Q12H. Levaquin is an option for treatment, but the patient is already on Celexa, which puts her at high risk for QTc prolongation. Duration of treatment depends on the clinical picture, but since the patient's ESR and CRP are so elevated and she failed outpatient oral antibiotics, we will proceed with at least two weeks of IV antibiotics. We will await intra- operative findings to ensure that the infection has not crossed the fascia. The patient is at high risk if the hardware gets infected and she has to go back to surgery, so we will treat aggressively with IV antibiotics. Actual duration of treatment will be based on how the patient does clinically and her inflammatory markers. PICC line placed 09/05/15. Monitor renal function and for drug toxicity and dose-adjust antibiotics. Get weekly CBC, BUN/Cr, ESR, CRP, and Vanc trough every Wednesday for the duration of IV therapy. Weekly PICC care per protocol. Follow up with ID 09/14/16 at 0830. Qualifiers: Encounter type: initial encounter Qualified Code(s): T81.4XXA - Infection following a procedure, initial encounter (2) Acute kidney injury Current Visit: Yes Status: Resolved Likely secondary to surgical site infection and/or Bactrim use. Resolved. Continue to monitor renal function and dose-adjust antibiotics. (3) Altered mental status, unspecified Current Visit: Yes Status: Acute Likely secondary to sepsis. CT head negative. Resolved. Qualifiers: Altered mental status type: unspecified Qualified Code(s): R41.82 - Altered mental status, unspecified (4) Fracture of hip, right, closed Current Visit: No Status: Resolved Status post right hip hemiarthroplasty 07/27/[address] Freeman. Qualifiers: Encounter type: initial encounter Qualified Code(s): S72.001A - Fracture of unspecified part of neck of right femur, initial encounter for closed fracture (5) Lewy body dementia with behavioral disturbance Current Visit: Yes Status: Chronic (6) HTN (hypertension) Current Visit: No Status: Chronic Qualifiers: Hypertension type: essential hypertension Qualified Code(s): I10 - Essential (primary) hypertension (7) Chronic kidney disease Current Visit: No Status: Chronic Qualifiers: Chronic kidney disease stage: stage 3 (moderate) Qualified Code(s): N18.3 - Chronic kidney disease, stage 3 (moderate) - Subjective Interval history: Patient seen and examined. Weekend notes reviewed. Patient noted to have bloody , purulent drainage from the lower pole of the right lateral hip incision yesterday. Ortho note reviewed. Plan to take the patient to the OR today for I & D. Patient denies fevers, chills, or rigors. States that overall she feels better, but continues to have significant pain in the right hip, worse with movement or weight-bearing. Denies chest pain, shortness of breath, or cough. Denies nausea, vomiting, diarrhea, or constipation. Denies abdominal pain or appetite changes. She is NPO for surgery later today. Denies urinary complaints. Denies oral thrush or new skin lesions. Infect Dis PN-Objective Data - Labs CBC & Chem 7: 09/08/16 08:55 09/08/16 08:55 Labs: Laboratory Results - last 24 hr 09/06/16 09/06/16 09/06/16 16:48 17:55 20:24 Sodium Potassium Chloride Carbon Dioxide BUN Creatinine Est GFR ( Amer) Est GFR (Non-Af Amer) BUN/Creatinine Ratio Glucose POC Glucose 264 H 170 H Calculated Osmolality Calcium Vancomycin Trough 15.2 09/07/16 11:58 Sodium 139 Potassium 3.7 Chloride 107 Carbon Dioxide 28 BUN 11 Creatinine 0.77 Est GFR ( Amer) > 60 Est GFR (Non-Af Amer) > 60 BUN/Creatinine Ratio 14 Glucose 100 H POC Glucose Calculated Osmolality 287 Calcium 9.3 Vancomycin Trough Exam - Constitutional Vitals: Temp Pulse Resp BP Pulse Ox 97.6 F 85 16 162/88 99 09/07/16 11:06 09/07/16 11:06 09/07/16 11:06 09/07/16 11:06 09/07/16 11:06 General appearance: average body habitus, cooperative, no acute distress - Head Head exam: Present: atraumatic, normal inspection, normocephalic - Eye Eye exam: Present: EOMI, normal appearance, PERRL Pupils: Present: normal accommodation - ENT ENT exam: Present: mucous membranes moist - Neck Neck exam: Present: normal inspection - Respiratory Respiratory exam: Present: CTAB. Absent: rales, respiratory distress, rhonchi, wheezes - Cardiovascular Cardiovascular exam: Present: RRR, +S1, +S2 - GI/Abdominal GI/Abdominal exam: Present: normal bowel sounds, soft. Absent: distended, tenderness - Extremities Exam Extremities exam: Present: joint swelling (right hip), normal inspection, tenderness (right hip). Absent: pedal edema Additional comments: Right lateral hip dressing with small amount of old shadow drainage noted. Tenderness noted with palpation. ROM not assessed due to pain. - Neurological Exam Neurological exam: Present: alert, oriented X3, no focal deficits - Psychiatric Psychiatric exam: Present: normal affect, normal mood - Skin Skin exam: Present: dry, intact, normal color, warm Consult Discharge Plan - Plan Referrals: Debra Harkins CNP [Advanced Practice Nurse] - 09/14/16 8:30 am Britany Forrest MD [Primary Care Provider] - - Attending Attestation I examined this patient and my medical decision-making was reviewed with the Resident Physician. I agree with the documented findings, disposition and treatment plan as described except to the extent set forth below.
--- NOTE | 2016-09-07 15:45 | Internal Med Progress Note ---
Date of Encounter: 09/07/16 Time of Encounter: 15:42 - Assessment and plan (1) Surgical wound infection Current Visit: Yes Status: Acute Assessment and plan: Wound cx - growing MRSA and Pseudomonas blood cx - no growth so far ID evaluated the pt and recommend for 2 weeks IV abx Cont Cefepime and Vancomycin # 4/ Ortho is on board since pt started draining purulent discharge through incision wound..she is going to back to OR now for wash out Cont broad spec abx Cefepime and Vancomycin for now Qualifiers: Encounter type: initial encounter Qualified Code(s): T81.4XXA - Infection following a procedure, initial encounter (2) Altered mental status, unspecified Current Visit: Yes Status: Acute Assessment and plan: Due to Surgical site inf blood cx - no growth so far Improved...back to baseline mental status clemente strict fall precautions Qualifiers: Altered mental status type: unspecified Qualified Code(s): R41.82 - Altered mental status, unspecified (3) S/P hip hemiarthroplasty Current Visit: Yes Status: Acute Assessment and plan: stable (4) Acute kidney injury Current Visit: Yes Status: Resolved Assessment and plan: MESHA due to dehydration and inf resolved Cr back to normal avoid nephro toxic meds (5) UTI (urinary tract infection) due to Enterococcus Current Visit: Yes Status: Acute Assessment and plan: Cont empirical abx cefepime (6) Diabetes mellitus Current Visit: Yes Status: Chronic Assessment and plan: cont low dose ISS Qualifiers: Diabetes mellitus type: type 2 Diabetes mellitus complication status: with kidney complications Diabetes mellitus complication detail: with chronic kidney disease Diabetes mellitus intermodal dispatcher insulin use: without half-way use Chronic kidney disease stage: stage 2 (mild) Qualified Code(s): E11.22 - Type 2 diabetes mellitus with diabetic chronic kidney disease; N18.2 - Chronic kidney disease, stage 2 (mild) (7) HTN (hypertension) Current Visit: No Status: Chronic Assessment and plan: stable with home meds cont Norvasc and Metoprolol Qualifiers: Hypertension type: essential hypertension Qualified Code(s): I10 - Essential (primary) hypertension (8) DVT prophylaxis Current Visit: No Status: Acute Assessment and plan: on SQ heparin (9) Physical deconditioning Current Visit: Yes Status: Acute Assessment and plan: May need short term PT / OT at [facility] CM / SW working on it - Subjective Interval history: Ms. 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 Also notd that pt does have erythema and swelling over recent Rt hip surgical incision area with wound cx growing MRSA and Pseudomonas. Pt was placed on PO Bactrim and Levofloxacin. However her symptoms has not improved. pt was admitted here and started on broad spectrum IV abx. Today she is more alert, awake and oriented to sef. Resting comfortably. She started having purulent drainage through incision wound since this morning - Constitutional Vitals: Temp Pulse Resp BP Pulse Ox 97.6 F 85 16 162/88 99 09/07/16 11:06 09/07/16 11:06 09/07/16 11:06 09/07/16 11:06 09/07/16 11:06 General appearance: Present: A&O X 0, pleasant - Respiratory Respiratory exam: Present: CTAB. Absent: accessory muscle use, rales, rhonchi, wheezes - Cardiovascular Cardiovascular exam: Present: RRR, +S1, +S2. Absent: diastolic murmur, gallop, rubs, systolic murmur - GI/Abdominal GI/Abdominal exam: Present: soft. Absent: distended, guarding, tenderness - Extremities Exam Extremities exam: Absent: calf tenderness, pedal edema, tenderness Additional comments: moderate erythema and induration noticed over Rt hip surgical incision area. small 0.5 cm size opening at the distal pole of incision with purulent drainages / discharge noticed. - Psychiatric Additional comments: pleasantly demented Internal Medicine: Result - Labs CBC & Chem 7: 09/06/16 04:20 09/07/16 11:58 Labs: BMP 09/07/16 11:58 Sodium 139 Potassium 3.7 Chloride 107 Carbon Dioxide 28 BUN 11 Creatinine 0.77 Glucose 100 H Calcium 9.3 - ABG Interpretation ABG results: PT/INR, D-dimer PT 14.6 Seconds (9.4-12.1) H 09/01/16 19:42 Consult Discharge Plan - Plan Referrals: Debra Harkins, NE[employer]ER [Advanced Practice Nurse] - 07/24/17 8:30 am Britany Forrest MD [Primary Care Provider] -
--- NOTE | 2016-09-07 17:17 | Anesthesia Evaluation PreOp ---
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: Other (dementia) Other Medical History: Diabetes Type II, Thyroid, GERD, Other (H/O breast CA S/ P chemo) Anesthesia History: No Prior Anesthetic Complications, Past Anesthesia Alcohol Use: none Drug use: none Medications and Allergies Metoprolol [Lopressor] 50 mg PO BID 01/15/16 [History] amLODIPine [Norvasc] 5 mg PO DAILY #30 tablet 01/20/16 [Rx] Calcium Carbonate/Vitamin D3 [Calcium 500 + Vit D Caplet] 1 each PO DAILY [History] Cholecalciferol (D-3) [Vitamin D] 2,000 unit PO DAILY 07/27/16 [History] Omeprazole [PriLOSEC] 40 mg PO DAILY 07/27/16 [History] Simvastatin [Zocor] 40 mg PO DAILY 07/27/16 [History] HYDROcodone/Acet 5/325 mg [[place] 5-325 mg] 1 tab PO BID PRN #30 tablet 07/31/16 [Rx] Temazepam [Restoril] 15 mg PO HS PRN #20 capsule 07/31/16 [Rx] Amitriptyline [Elavil] 20 mg PO HS 09/01/16 [History] Aspirin Enteric Coated [Aspirin EC] 325 mg PO DAILY 09/01/16 [History] Citalopram Hydrobromide [Celexa] 40 mg PO DAILY 09/01/16 [History] Levothyroxine [Synthroid] 50 mcg PO 0630 09/01/16 [History] Allergies Oxycodone [From Percocet] Allergy (Verified 09/01/16 17:58) Itching - Meds/Allergy Pre-op Review Medications Reviewed: Yes Allergies Reviewed: Yes Beta Blockers on Current Med List: Yes Anesthesia Results - Labs 09/06/16 04:20 09/07/16 11:58 07/02/2014 Echo Impressions: LVEF 55-60%. Normal left ventricular structure and function. Mild left ventricular diastolic dysfunction. Normal right ventricular structure and function. Mild mitral regurgitation, which was posteriorly directed and was not well visualized. Unable to estimate RVSP due to lack of TR jet. 12/19/2009 [facility] Impression: Normal coronary angiography; there was no evidence of significant coronary artery disease. Normal left ventricular size and contractility. The overall left ventricular systolic function was normal. The left ventricular ejection fraction was 65%. - Imaging EKG: report reviewed (09/01/2016 ) Anesthesia Exam Vital Signs/O2 Sat/Glucose, Most Recent Temp Pulse Resp BP Pulse Ox 98.2 F 84 18 139/79 99 09/07/16 15:57 09/07/16 15:57 09/07/16 15:57 09/07/16 15:57 09/07/16 15:57 Blood Glucose* 133 Height: 5'2''/1.57 m Weight: 143 lbs/65.1 kg NPO (# of Hours): 8 Pain Scale: 0 Pain Scale Used: Numeric (1 - 10) - HEENT Pupil (Motor): EOMI Mallampati: II Teeth: Edentulous Oral Opening: Greater than 3 - EMERGENCY ROOM CLERK LOC: Confused EMERGENCY ROOM CLERK Motor: Normal RUE, Normal LUE, Normal LLE, Normal Face, Deficit RLE EMERGENCY ROOM CLERK Sensory: Normal: RUE, LUE, RLE, LLE, Face - Cardiac Rhythm: Regular Murmur: None - Pulmonary Breath Sounds: bilateral Clear Respiratory Effort: Symmetrical Anesthesia Assess/Plan ASA Score: 3 Modified [place] Scale for Level of Consciousness: Cooperative, oriented, and tranquil (oriented x 1) Anesthetic Plan: General, Precautions (Consent obtained from patients due to dementia) Monitoring Plan: Standard Monitors Recovery Plan: PACU
[2016-09-07] MEDS ORDERED: *HR* Succinylcholine 200 MG/10 ML VIAL IVP ONE (18:01)
[2016-09-07] MEDS ORDERED: *HR* Propofol 200 MG/20 ML VIAL IVP ONE (18:01)
[2016-09-07] MEDS ORDERED: *HR* FentaNYL (PF) 100 MCG/2 ML VIAL ONE (18:14)
[2016-09-07] MEDS ORDERED: Dexamethasone 4 MG/ML VIAL ONE (18:15)
[2016-09-07] MEDS ORDERED: Ondansetron 4 MG/2 ML VIAL ONE (18:15)
[2016-09-07] MEDS ORDERED: *HR* FentaNYL (PF) 100 MCG/2 ML VIAL IVP PRN (18:38)
[2016-09-07] MEDS ORDERED: *HR* Labetalol 20 MG/4 ML SYRINGE IVP PRN (18:38)
--- NOTE | 2016-09-07 18:43 | Orthopedic Operative Note ---
Date of procedure: 09/07/16 Pre-op diagnosis: Infected right hip Post-op diagnosis: same Procedure: Procedure: Right hip arthrotomy irrigation debridement exchange of femoral head and bipolar component. Estimated blood loss 200 mL Findings: Superficial abscess at distal pole of incision concerned that this tracked to the hip. This was irrigated and debrided before opening the hip. No pus was identified in the hip. Based on the concern the hip was dislocated removable parts including the femoral head and bipolar component were removed and new ones replaced. Extensive debridement was performed of the hip as well. Procedure: Patient brought to the operating room and placed on the operating table. After general anesthesia was administered the patient was placed left side down right side up lateral decubitus position all pressure points padded appropriately head was stabilized into position the right lower extremity was prepped and draped in the sterile surgical fashion. The patient received IV antibodies for skin incision. Patient had a draining area from the distal pole of the incision with an indurated area around this opening. An elliptical incision was performed around this area after the lower right lower extremity was prepped and draped. This exposed an abscess. This did track deep and posteriorly. Concern was that was that this may indicate with the hip. This area was extensively irrigated and debrided before a opening of the fascia was performed. Evaluation hip joint revealed fluid but no obvious pus. The hip was irrigated with 3 L pulse irrigation. The hip was dislocated the head was removed as well as the bipolar component. The stem was well fixed. Extensive debridement was performed of the deep tissue distance soaked in Betadine saline solution for 2 minutes. This was then irrigated out and a new 45 bipolar component with with a +6 femoral head was impacted in place. Hip was reduced hip had excellent stability. Flexion to 90 degrees adduction 30 degrees internal rotation 60 degrees no shuck. The deep tissues once again bathed in Betadine saline solution for 2 minutes and irrigated out with 2 L pulse irrigation. Was then irrigated out with Bactisure and closed deep with #1 PDS suture superficially with 0 PDS suture skin was closed with skin sammi after subcutaneous tissues irrigated. The hip was closed by the PA. Anesthesia: BETHANY Surgeon: Prasanth Freeman Oxygen Equipment Preparer: Shalonda Saunders Condition: stable Disposition: PACU
[2016-09-07] MEDS ORDERED: Acetaminophen IV 1,000 MG/100 ML INFUS..BTL IVPB ONE (19:23)
[2016-09-07] MEDS ORDERED: *HR* HYDROmorphone (PF) 1 MG/ML SYRINGE ONE (19:44)
[2016-09-07] MEDS ORDERED: *HR* HYDROmorphone (PF) 1 MG/ML SYRINGE IVP ONE (19:45)
--- NOTE | 2016-09-07 20:14 | Anesthesia Evaluation Post Op ---
Date of Encounter: 09/07/16 Time of Encounter: 20:15 - Vital Signs Vital Signs: Vital Signs/O2 Sat/Glucose, Most Current Temp Pulse Resp BP Pulse Ox 09/07/16 20:10 97.4 F L 84 16 109/67 94 09/07/16 20:00 80 16 125/61 95 09/07/16 19:50 80 16 120/64 95 09/07/16 19:40 98.0 F 83 18 133/49 99 09/07/16 19:30 83 16 130/81 98 09/07/16 19:20 91 16 120/93 98 09/07/16 19:10 100.6 F H 87 12 105/70 99 - Lungs Lungs: Clear Ascult./Percussion - Airway Airway: Non-obstructed - Cardiovascular Regular Rate - Mental Status Mental Status: Alert & Oriented, Answers Appropriately - Pain Pain Scale: 0 - Nausea Vomiting Nausea Vomiting: Not Present - Hydration Hydration: Ice chips - Discharge PostOp Status: Transfer Patient to floor
[2016-09-07] MEDS ORDERED: Temazepam 15 MG CAPSULE PO PRN (21:18)
[2016-09-07] MEDS ORDERED: Naloxone 0.4 MG/ML INJ IVP PRN (21:18)
[2016-09-07] MEDS ORDERED: *HR* Dextrose 50 % in Water (Syg) 50 ML SYRINGE IVP PRN (21:18)
[2016-09-07] MEDS ORDERED: D5% in Water 1,000 ML IVC PRN (21:18)
[2016-09-07] MEDS ORDERED: Ondansetron 4 MG/2 ML VIAL IVP PRN (21:18)
[2016-09-07] MEDS ORDERED: MOM Conc 10 ML UD.LIQ PO PRN (21:18)
[2016-09-07] MEDS ORDERED: *HR* HYDROcodone/Acet 5/325 mg TABLET PO PRN (21:18)
[2016-09-07] MEDS ORDERED: Dextrose Gel 15 GM PO PRN ×2 (21:18)
[2016-09-07] MEDS ORDERED: Ondansetron ODT 4 MG TAB.RAPDIS SL PRN (21:18)
[2016-09-07] MEDS ORDERED: Sennosides 8.6 MG TABLET PO PRN (21:18)
[2016-09-07] MEDS ORDERED: traMADol 50 MG TABLET PO PRN (21:18)
[2016-09-07] MEDS: Ringers Solution, Lactated 1,000 ML IVC SCH (23:10)
[2016-09-07] MEDS: Vancomycin 1,000 MG in D5% in Water 250 ML IVPB SCH (23:11)
[2016-09-08] MEDS: *HR* Heparin 5,000 UNIT/ML VIAL SQ SCH ×3 (01:25→17:35)
[2016-09-08] MEDS: Vancomycin 1,000 MG in D5% in Water 250 ML IVPB SCH ×2 (01:25→23:56)
[2016-09-08] MEDS: Insulin LISPRO 300 UNITS/3 ML VIAL SQ SCH ×5 (01:27→23:31)
[2016-09-08] MEDS ORDERED: Cefepime HCl 2,000 MG in D5% in Water (Mini-Bag+) 100 ML IVPB SCH (06:00)
--- NOTE | 2016-09-08 06:40 | Orthopedics Progress Note ---
Date of Encounter: 09/08/16 Time of Encounter: 06:39 Subjective Interval history: Patient was seen this morning doing well without complaints. Afebrile vital signs stable. Operative extremity: Neurovascularly intact Dressing clean dry and intact Calves nontender Assessment and plan: Continue with postoperative care Monitor cultures and check H&H Objective Vital signs: Vital Signs Temp Pulse Resp BP Pulse Ox 09/08/16 01:02 97.4 F L 83 15 114/77 94 09/07/16 23:15 98 F 81 15 100/68 97 09/07/16 22:15 97.9 F 82 15 107/68 97 09/07/16 21:45 97.7 F 85 15 101/71 98 09/07/16 21:15 97.8 F 75 14 99/62 96 09/07/16 21:00 97.8 F 79 15 96/64 97 09/07/16 20:48 99.1 F 67 14 131/74 93 09/07/16 20:10 97.4 F L 84 16 109/67 94 09/07/16 20:00 80 16 125/61 95 09/07/16 19:50 80 16 120/64 95 09/07/16 19:40 98.0 F 83 18 133/49 99 09/07/16 19:30 83 16 130/81 98 09/07/16 19:20 91 16 120/93 98 09/07/16 19:10 100.6 F H 87 12 105/70 99 09/07/16 15:57 98.2 F 84 18 139/79 99 09/07/16 11:06 97.6 F 85 16 162/88 99 09/07/16 07:02 98.3 F 80 16 143/80 94 Intake and Output 09/07/16 09/07/16 09/08/16 15:59 23:59 07:59 Intake Total 150 / 150 250 / 250 Output Total 600 / 600 500 / 500 200 / 200 Balance -600 / -600 -350 / -350 50 / 50 Intake: IV Fluids 100 / 100 250 / 250 Ofirmev 1,000 mg/100 ml 1 100 / 100 ,000 mg In 100 ml @ 400 mls/hr IVPB ONCE ONE Rx#: [id number] Vancocin 1,000 MG In 250 / 250 Dextrose 5% 250 ML @ 167 mls/hr IVPB Q24H [facility] Rx#: [id number] Oral 50 / 50 Output: Urine 600 / 600 300 / 300 200 / 200 Estimated Blood Loss 200 / 200 Other: Weight 59.6 kg Blood Glucose* 124 204 Patient Weight 09/08/16 23:59 Weight 59.6 kg - Labs CBC & BMP: 09/06/16 04:20 09/07/16 11:58 Labs: Abnormal lab results RBC 2.80 M/mcL (3.82-4.97) L 09/06/16 04:20 Hgb 8.0 g/dL (11.5-15.4) L 09/06/16 04:20 Hct 25.8 % (35.3-44.9) L 09/06/16 04:20 MCHC 31.0 g/dL (31.6-35.5) L 09/06/16 04:20 RDW 14.8 % (11.5-14.5) H 09/06/16 04:20 Plt Count 453 K/mcL (140-400) H 09/06/16 04:20 ESR 54 mm/hr (0-15) H 09/06/16 04:20 PT 14.6 Seconds (9.4-12.1) H 09/01/16 19:42 APTT 25.5 Seconds (26.0-36.0) L 09/02/16 00:55 Glucose 100 mg/dL (70-99) H 09/07/16 11:58 POC Glucose 133 (58-89) H 09/07/16 16:19 C-Reactive Protein 22 mg/L (Less than 5) H 09/06/16 04:20 Albumin 2.6 g/dL (3.5-5.0) L 09/03/16 03:48 Globulin 4.0 g/dL (2.4-3.5) H 09/03/16 03:48 Albumin/Globulin Ratio 0.7 (1.1-2.2) L 09/03/16 03:48 TSH 13.315 mcIU/mL (0.350-4.840) H 09/02/16 00:55 Urine Clarity Cloudy (Clear) A 09/01/16 20:54 Ur Specific [place] > 1.030 (1.010-1.025) H 09/01/16 20:54 Urine Bilirubin Moderate (Negative) H 09/01/16 20:54 Ur Squamous Epith Cells Many per lpf (None-Few) H 09/01/16 20:54 Consult Discharge Plan - Plan Referrals: Debra Harkins CNP [Advanced Practice Nurse] - 09/14/16 8:30 am Britany Forrest MD [Primary Care Provider] -
[2016-09-08] MEDS: Ascorbic Acid 500 MG TABLET PO SCH ×2 (08:05→17:35)
[2016-09-08] MEDS: Multivit/Ca/Min/Fe/FA 1 TAB TABLET PO SCH (08:05)
[2016-09-08] MEDS: Aspirin Enteric Coated 325 MG Tablet PO SCH (08:05)
[2016-09-08] MEDS: amLODIPine 5 MG TABLET PO SCH (08:07)
[2016-09-08 08:54] LABS: Hematocrit 23.7 % (35.3-44.9); Hemoglobin 7.5 g/dL (11.5-15.4)
[2016-09-08 09:07] LABS: Hematocrit 23.3 % (35.3-44.9); Hemoglobin 7.5 g/dL (11.5-15.4); Immature Granulocytes % 0.6 % (0-4); Lymphocytes # 1.2 K/mcL (0.6-4.6); Lymphocytes % 10.1 %; Mean Corpuscular HGB Conc 32.2 g/dL (31.6-35.5); Mean Corpuscular Hemoglobin 29.4 pg (28.0-33.3); Mean Corpuscular Volume 91.4 fL (83.0-100.0); Mean Platelet Volume 9.1 fL (9.4-12.4); Monocytes # 0.2 K/mcL (0.0-1.3); Monocytes % 1.7 %; Neutrophils # 10.3 K/mcL (1.6-8.9); Platelet Count 452 K/mcL (140-400); Red Blood Count 2.55 M/mcL (3.82-4.97); Red Cell Distribution Width 15.2 % (11.5-14.5); Segmented Neutrophils % 87.6 %
--- NOTE | 2016-09-08 09:08 | Infectious Disease Progress No ---
Date of Encounter: 09/08/16 Time of Encounter: 09:06 - Assessment and Plan (1) Surgical wound infection Current Visit: Yes Status: Acute Patient is POD # 1 for right lateral hip status post right hip arthrotomy irrigation debridement exchange of femoral head and bipolar component. I reviewed Operative notes orthopedic surgery's operative note there was an abscess that had deep tracking but did not seem to penetrate the deep fascia. Causative organism PSEA and MRSA. CT scan of the hip did not show evidence of deep infection or abscess. Failed outpatient oral antibiotics. ESR 91, CRP 76. REcomendations: Continue Vancomycin IV. Pharmacy to dose. Goal trough approximately 15. Continue Cefepime 2 grams IV Q12H. Levaquin is an option for treatment, but the patient is already on Celexa, which puts her at high risk for QTc prolongation. Duration of treatment depends on the clinical picture, but likely 6 weeks Actual duration of treatment will be based on how the patient does clinically and her inflammatory markers. PICC line placed 09/05/15. Monitor renal function and for drug toxicity and dose-adjust antibiotics. Get weekly CBC, BUN/Cr, ESR, CRP, and Vanc trough every Wednesday for the duration of IV therapy. Weekly PICC care per protocol. Follow up with ID 09/14/16 at 0830. Qualifiers: Encounter type: initial encounter Qualified Code(s): T81.4XXA - Infection following a procedure, initial encounter (2) Diabetes mellitus Current Visit: Yes Status: Chronic blood glucose ranging from 206-266. recommend tight glycemic control to prevent recurrent infections management per primary team. Qualifiers: Diabetes mellitus type: type 2 Diabetes mellitus complication status: with kidney complications Diabetes mellitus complication detail: with chronic kidney disease Diabetes mellitus shelter insulin use: without charter representative use Chronic kidney disease stage: stage 2 (mild) Qualified Code(s): E11.22 - Type 2 diabetes mellitus with diabetic chronic kidney disease; N18.2 - Chronic kidney disease, stage 2 (mild) (3) Chronic kidney disease Current Visit: No Status: Chronic stage 3a. SCr at baseline. continue to monitor renal function closely. Qualifiers: Chronic kidney disease stage: stage 3 (moderate) Qualified Code(s): N18.3 - Chronic kidney disease, stage 3 (moderate) (4) Lewy body dementia with behavioral disturbance Current Visit: Yes Status: Chronic patient is at baseline mental status this AM per . (5) Fracture of hip, right, closed Current Visit: Yes Status: Acute s/p right hip hemiarthroplasy by Dr. Freeman on 08/06/16. Qualifiers: Encounter type: sequela Qualified Code(s): S72.001S - Fracture of unspecified part of neck of right femur, sequela - Subjective Interval history: Mrs. Forrest is POD # 1 for Right hip arthrotomy irrigation debridement exchange of femoral head and bipolar component. This morning she states she is feeling better. She states that the pain is well controlled and that the ice packs help a lot. She denies any dyspnea, wheeze cough, rash, or diarrhea. She has no further complaints or concerns at this time. Her is also present and offers no concerns at this time as well. Infect Dis PN-Objective Data - Labs CBC & Chem 7: 09/08/16 08:55 09/08/16 08:55 Labs: Laboratory Results - last 24 hr 09/07/16 09/07/16 09/07/16 07:05 11:07 11:58 Hgb Hct Sodium 139 Potassium 3.7 Chloride 107 Carbon Dioxide 28 BUN 11 Creatinine 0.77 Est GFR ( Amer) > 60 Est GFR (Non-Af Amer) > 60 BUN/Creatinine Ratio 14 Glucose 100 H POC Glucose 167 H 124 H Calculated Osmolality 287 Calcium 9.3 09/07/16 09/08/16 16:19 05:50 Hgb 7.5 L Hct 23.7 L Sodium Potassium Chloride Carbon Dioxide BUN Creatinine Est GFR ( Amer) Est GFR (Non-Af Amer) BUN/Creatinine Ratio Glucose POC Glucose 133 H Calculated Osmolality Calcium Exam - Constitutional Vitals: Temp Pulse Resp BP Pulse Ox 97.5 F L 86 16 107/74 96 09/08/16 06:43 09/08/16 06:43 09/08/16 06:43 09/08/16 06:43 09/08/16 06:43 General appearance: no acute distress - Head Head exam: Present: atraumatic, normal inspection, normocephalic - Eye Eye exam: Present: PERRL, conjuntiva pink, sclera anicteric - ENT ENT exam: Present: mucous membranes moist - Neck Neck exam: Present: normal inspection. Absent: tenderness, thyromegaly - Respiratory Respiratory exam: Present: CTAB - Cardiovascular Cardiovascular exam: Present: RRR, +S1, +S2. Absent: diastolic murmur, JVD, systolic murmur - GI/Abdominal GI/Abdominal exam: Present: normal bowel sounds, soft. Absent: tenderness - Extremities Exam Extremities exam: Present: pedal edema (mild right foot. ) Additional comments: the right hip is clean and well dressed with minimal bleeding from the operative site. Mild pedal edema of the right foot. Extremity is warm . She can easily move her foot and toes. - Skin Skin exam: Present: intact, warm. Absent: rash Consult Discharge Plan - Plan Referrals: Debra Harkins CNP [Advanced Practice Nurse] - 09/14/16 8:30 am Britany Forrest MD [Primary Care Provider] - - Attending Attestation I examined this patient and my medical decision-making was reviewed with the Resident Physician. I agree with the documented findings, disposition and treatment plan as described except to the extent set forth below.
[2016-09-08 09:17] LABS: BUN/Creatinine Ratio 19 (6-26); Blood Urea Nitrogen 18 mg/dL (7-20); Calcium 9.1 mg/dL (8.6-10.8); Carbon Dioxide 26 mEq/L (19-29); Chloride 103 mEq/L (98-109); Glucose 255 mg/dL (70-99); Osmolality,Calculated 285 (280-300); Potassium 4.3 mEq/L (3.5-4.5); eGFR For African Americans > 60 (> 60); eGFR For Non-African Americans 56 (> 60)
[2016-09-08 09:18] LABS: Sodium 132 mEq/L (136-145)
[2016-09-08] MEDS ORDERED: Furosemide 20 MG/2 ML VIAL IVP PRN (09:40)
[2016-09-08] MEDS ORDERED: 0.9 % Sodium Chloride 250 ML ONE ×2 (11:40→16:24)
[2016-09-08] MEDS: Acetaminophen 325 MG TABLET PO PRN (14:12)
--- NOTE | 2016-09-08 16:06 | Internal Med Progress Note ---
Date of Encounter: 09/08/16 Time of Encounter: 08:00 - Assessment and plan (1) Surgical wound infection Current Visit: Yes Status: Acute Assessment and plan: Being managed with IV antibiotics. Cultures positive for Pseudomonas and MRSA. On cefepime and vancomycin per ID recommendations. Given possibility of joint infection, patient may need longer course of IV antibiotics. We will follow ID recommendations. Moderate risk for complications. Qualifiers: Encounter type: initial encounter Qualified Code(s): T81.4XXA - Infection following a procedure, initial encounter (2) Anemia Current Visit: Yes Status: Acute Assessment and plan: Anemia likely due to blood loss from surgery. Transfuse packed red blood cells. Monitor blood counts. Qualifiers: Anemia type: other cause Other causes of anemia: acute posthemorrhagic Qualified Code(s): D62 - Acute posthemorrhagic anemia (3) Acute kidney injury Current Visit: Yes Status: Resolved Assessment and plan: This has resolved. (4) Altered mental status, unspecified Current Visit: Yes Status: Resolved Assessment and plan: Due to underlying Lewy body dementia. Qualifiers: Altered mental status type: unspecified Qualified Code(s): R41.82 - Altered mental status, unspecified (5) Diabetes mellitus Current Visit: Yes Status: Chronic Assessment and plan: Blood sugars are elevated. We will add long-acting insulin. Qualifiers: Diabetes mellitus type: type 2 Diabetes mellitus complication status: with kidney complications Diabetes mellitus complication detail: with chronic kidney disease Diabetes mellitus care home insulin use: without long term care phlebotomist use Chronic kidney disease stage: stage 2 (mild) Qualified Code(s): E11.22 - Type 2 diabetes mellitus with diabetic chronic kidney disease; N18.2 - Chronic kidney disease, stage 2 (mild) (6) DVT prophylaxis Current Visit: Yes Status: Acute Assessment and plan: subcutaneous heparin (7) Physical deconditioning Current Visit: Yes Status: Chronic Assessment and plan: Awaiting placement to skilled rehabilitation. (8) S/P hip hemiarthroplasty Current Visit: Yes Status: Acute Assessment and plan: Patient underwent surgery yesterday to irrigate and replace part of the joint. Orthopedics following. We will continue to monitor and follow recommendations. (9) UTI (urinary tract infection) due to Enterococcus Current Visit: Yes Status: Acute Assessment and plan: On vancomycin. - Subjective Interval history: Patient underwent surgery yesterday with right hip arthrotomy, irrigation and debridement with exchange of femoral head and bipolar component. Doing well postprocedure. Does have right hip pain but improving. Denies any fever or chills since yesterday. No nausea or vomiting. - Constitutional Vitals: Temp Pulse Resp BP Pulse Ox 98.1 F 84 14 107/64 96 09/08/16 15:15 09/08/16 15:15 09/08/16 15:15 09/08/16 15:15 09/08/16 15:15 General appearance: Present: A&O X 0, cooperative, pleasant, answers questions appropriately - Neck Neck exam general surgery: Present: supple, trachea midline. Absent: lymphadenopathy - Respiratory Respiratory exam: Present: CTAB. Absent: accessory muscle use, rales, rhonchi, wheezes - Cardiovascular Cardiovascular exam: Present: RRR, +S1, +S2. Absent: diastolic murmur, gallop, rubs, systolic murmur - GI/Abdominal GI/Abdominal exam: Present: normal bowel sounds, soft, no peritoneal signs. Absent: distended, tenderness - Extremities Exam Extremities exam: Present: warm, radial pulses palpable and symetrical. Absent : calf tenderness, cyanotic, pedal edema Additional comments: Right hip bandaged and mildly tender. - Neurological Exam Neurological exam: Present: alert, no focal deficits. Absent: facial droop, speech deficit Internal Medicine: Result - Labs CBC & Chem 7: 09/08/16 08:55 09/08/16 08:55 Labs: Short CBC 09/08/16 09/08/16 Range/Units 05:50 08:55 WBC 11.8 H D (4.3-11.1) K/mcL Hgb 7.5 L 7.5 L (11.5-15.4) g/dL Hct 23.7 L 23.3 L (35.3-44.9) % Plt Count 452 H (140-400) K/mcL Neutrophils # 10.3 H (1.6-8.9) K/mcL BMP 09/08/16 08:55 Sodium 132 L D Potassium 4.3 Chloride 103 Carbon Dioxide 26 BUN 18 Creatinine 0.97 Glucose 255 H Calcium 9.1 - ABG Interpretation ABG results: PT/INR, D-dimer PT 14.6 Seconds (9.4-12.1) H 09/01/16 19:42 - VTE Documentation of Mechanical Device: Venous foot pump, device Consult Discharge Plan - Plan Referrals: Debra Harkins CNP [Advanced Practice Nurse] - 09/14/16 8:30 am Britany Forrest MD [Primary Care Provider] -
[2016-09-08] MEDS: Cefepime HCl 2,000 MG in D5% in Water (Mini-Bag+) 100 ML IVPB SCH (20:30)
[2016-09-08] MEDS: Insulin DETEMIR 100 UNIT/ML X5UNITS SQ SCH (23:29)
[2016-09-09] MEDS ORDERED: Vancomycin 750 MG in D5% in Water 250 ML IVPB SCH
[2016-09-09] MEDS: Ringers Solution, Lactated 1,000 ML IVC SCH (01:55)
[2016-09-09 05:19] LABS: Hematocrit 29.4 % (35.3-44.9)
[2016-09-09 05:28] LABS: Hemoglobin 9.9 g/dL (11.5-15.4)
[2016-09-09] MEDS: Cefepime HCl 2,000 MG in D5% in Water (Mini-Bag+) 100 ML IVPB SCH (06:06)
[2016-09-09] MEDS: *HR* Heparin 5,000 UNIT/ML VIAL SQ SCH (06:07)
[2016-09-09] MEDS: Acetaminophen 325 MG TABLET PO PRN (06:18)
[2016-09-09] MEDS: Multivit/Ca/Min/Fe/FA 1 TAB TABLET PO SCH (07:51)
[2016-09-09] MEDS: Aspirin Enteric Coated 325 MG Tablet PO SCH (07:51)
[2016-09-09] MEDS: Ascorbic Acid 500 MG TABLET PO SCH (07:51)
[2016-09-09] MEDS: amLODIPine 5 MG TABLET PO SCH (07:52)
[2016-09-09] MEDS: Insulin LISPRO 300 UNITS/3 ML VIAL SQ SCH ×2 (07:57→11:53)
[2016-09-09] MEDS: Insulin DETEMIR 100 UNIT/ML X5UNITS SQ SCH (08:00)
--- NOTE | 2016-09-09 09:29 | Orthopedics Progress Note ---
Date of Encounter: 09/09/16 Time of Encounter: 09:29 Subjective Interval history: Patient was seen this morning doing well without complaints. Afebrile vital signs stable. Operative extremity: Neurovascularly intact Dressing clean dry and intact Calves nontender Assessment and plan: Continue with postoperative care Cultures negative stable for discharge Objective Vital signs: Vital Signs Temp Pulse Resp BP Pulse Ox 09/09/16 08:00 97.8 F 80 16 164/95 99 09/09/16 01:00 98.4 F 75 15 130/81 98 09/08/16 22:40 98.3 F 86 16 131/75 98 09/08/16 19:05 98.9 F 90 15 118/72 09/08/16 16:45 98.6 F 88 14 120/63 96 09/08/16 16:30 98.5 F 91 15 114/64 98 09/08/16 15:15 98.1 F 84 14 107/64 96 09/08/16 15:07 98.6 F 88 16 100/63 98 09/08/16 12:35 98.0 F 84 14 115/7 09/08/16 12:20 98.2 F 83 14 120/66 96 09/08/16 11:41 98.1 F 81 17 117/67 99 Intake and Output 09/08/16 09/09/16 09/09/16 23:59 07:59 15:59 Intake Total 435 / 435 250 / 250 Balance 435 / 435 250 / 250 Intake: IV Fluids 125 / 125 0.9 % Sodium Chloride 250 25 / 25 ML As .ROUTE .STK-[facility] ONE Rx#:[id number] Maxipime 2,000 MG In 100 / 100 Dextrose 5% (Minibag+) 100 ML 100 ML @ 200 mls/ hr IVPB Q12H [facility] Rx#: [id number] Oral 250 / 250 Blood Product 310 / 310 Rbcs Leuko Poor As-3 Ph 310 / 310 Unit [id number] Other: Meal Dinner Percent of Meal Consumed 50% # Voids 1 Blood Glucose* 236 120 - Labs CBC & BMP: 09/09/16 04:29 09/08/16 08:55 Labs: Abnormal lab results WBC 11.8 K/mcL (4.3-11.1) H D 09/08/16 08:55 RBC 2.55 M/mcL (3.82-4.97) L 09/08/16 08:55 Hgb 9.9 g/dL (11.5-15.4) L D 09/09/16 04:29 Hct 29.4 % (35.3-44.9) L 09/09/16 04:29 RDW 15.2 % (11.5-14.5) H 09/08/16 08:55 Plt Count 452 K/mcL (140-400) H 09/08/16 08:55 MPV 9.1 fL (9.4-12.4) L 09/08/16 08:55 Neutrophils # 10.3 K/mcL (1.6-8.9) H 09/08/16 08:55 ESR 54 mm/hr (0-15) H 09/06/16 04:20 PT 14.6 Seconds (9.4-12.1) H 09/01/16 19:42 APTT 25.5 Seconds (26.0-36.0) L 09/02/16 00:55 Sodium 132 mEq/L (136-145) L D 09/08/16 08:55 Est GFR (Non-Af Amer) 56 (> 60) L 09/08/16 08:55 Glucose 255 mg/dL (70-99) H 09/08/16 08:55 POC Glucose 236 (58-89) H 09/08/16 22:37 C-Reactive Protein 22 mg/L (Less than 5) H 09/06/16 04:20 Albumin 2.6 g/dL (3.5-5.0) L 09/03/16 03:48 Globulin 4.0 g/dL (2.4-3.5) H 09/03/16 03:48 Albumin/Globulin Ratio 0.7 (1.1-2.2) L 09/03/16 03:48 TSH 13.315 mcIU/mL (0.350-4.840) H 09/02/16 00:55 Urine Clarity Cloudy (Clear) A 09/01/16 20:54 Ur Specific [place] > 1.030 (1.010-1.025) H 09/01/16 20:54 Urine Bilirubin Moderate (Negative) H 09/01/16 20:54 Ur Squamous Epith Cells Many per lpf (None-Few) H 09/01/16 20:54 - VTE Documentation of Mechanical Device: Venous foot pump, device Consult Discharge Plan - Plan Referrals: Debra Harkins CNP [Advanced Practice Nurse] - 09/14/16 8:30 am Britany Forrest MD [Primary Care Provider] -
--- NOTE | 2016-09-09 11:19 | Infectious Disease Progress No ---
Date of Encounter: 09/09/16 Time of Encounter: 11:19 - Assessment and Plan (1) Surgical wound infection Current Visit: Yes Status: Acute Patient is POD # 2 for right lateral hip status post right hip arthrotomy irrigation debridement exchange of femoral head and bipolar component. I reviewed Operative notes orthopedic surgery's operative note there was an abscess that had deep tracking but did not seem to penetrate the deep fascia. Causative organism PSEA and MRSA. Wound cultures from 09/07/16 have grown GPC ESR and CRP have trended down and are 54 and 22 respectively. REcomendations: Continue Vancomycin IV. Pharmacy to dose. Goal trough approximately 15. Continue Cefepime 2 grams IV Q12H. Levaquin is an option for treatment, but the patient is already on Celexa, which puts her at high risk for QTc prolongation. Duration of treatment depends on the clinical picture, but likely 6 weeks Actual duration of treatment will be based on how the patient does clinically and her inflammatory markers. PICC line placed 09/05/15. Monitor renal function and for drug toxicity and dose-adjust antibiotics. Get weekly CBC, BUN/Cr, ESR, CRP, and Vanc trough every Wednesday for the duration of IV therapy. Weekly PICC care per protocol. Follow up with ID 09/14/16 at 0830. Qualifiers: Encounter type: initial encounter Qualified Code(s): T81.4XXA - Infection following a procedure, initial encounter (2) Diabetes mellitus Current Visit: Yes Status: Chronic blood glucose ranging from 120-236 recommend tight glycemic control to prevent recurrent infections management per primary team. 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 Most recent SCr is at baseline. continue to monitor renal function closely. Qualifiers: Chronic kidney disease stage: stage 3 (moderate) Qualified Code(s): N18.3 - Chronic kidney disease, stage 3 (moderate) (4) Lewy body dementia with behavioral disturbance Current Visit: Yes Status: Chronic patient is at baseline mental status this AM per . (5) Fracture of hip, right, closed Current Visit: Yes Status: Acute s/p right hip hemiarthroplasy by Dr. Freeman on 08/06/16. Qualifiers: Encounter type: sequela Qualified Code(s): S72.001S - Fracture of unspecified part of neck of right femur, sequela - Subjective Interval history: Mrs. Forrest is POD # 2 for Right hip arthrotomy irrigation debridement exchange of femoral head and bipolar component. No major events over night. This morning She states she has some pain in the hip but that it is " tolerable " She denies fever, chills, malaise, dysuria. she denies any other complaints or concerns at this time. I was able to speak with her this AM and he had no concerns this AM as well. Infect Dis PN-Objective Data - Labs CBC & Chem 7: 09/09/16 04:29 09/08/16 08:55 Labs: Laboratory Results - last 24 hr 09/07/16 09/08/16 09/08/16 21:33 06:48 11:45 Hgb Hct POC Glucose 204 H 266 H 206 H Vancomycin Trough 09/08/16 09/08/16 09/08/16 16:46 22:20 22:37 Hgb Hct POC Glucose 281 H 236 H Vancomycin Trough 17.6 09/09/16 04:29 Hgb 9.9 L D Hct 29.4 L POC Glucose Vancomycin Trough Cultures: Cultures 09/07/16 18:20 Wound Culture - Preliminary Right Hip Gram Positive Cocci Exam - Constitutional Vitals: Temp Pulse Resp BP Pulse Ox 97.8 F 80 16 164/95 99 09/09/16 08:00 09/09/16 08:00 09/09/16 08:00 09/09/16 08:00 09/09/16 08:00 General appearance: no acute distress Exam: orientated to self and situation but not time or location. No change from yesterday. Alert and awake for entire exam. - Head Head exam: Present: atraumatic, normal inspection, normocephalic - Eye Eye exam: Present: conjuntiva pink, sclera anicteric - Neck Neck exam: Present: normal inspection. Absent: lymphadenopathy, tenderness, thyromegaly - Respiratory Respiratory exam: Present: CTAB Additional comments: s a normal effort of breathing. - Cardiovascular Cardiovascular exam: Present: RRR, +S1, +S2. Absent: diastolic murmur, rubs, systolic murmur - GI/Abdominal GI/Abdominal exam: Present: normal bowel sounds, soft. Absent: tenderness - Extremities Exam Extremities exam: Absent: pedal edema Additional comments: The right hip is clean adn well dressed without any bleeding at this time. She denies decreased sensation of the lower extremities when palpated. Pulses intact. Moves feet and toes without any difficulty. - Skin Skin exam: Absent: erythema, rash - VTE Documentation of Mechanical Device: Venous foot pump, device Consult Discharge Plan - Plan Additional Instructions: follow up with orthopedics in 2-3 weeks Referrals: Debra Harkins CNP [Advanced Practice Nurse] - 09/14/16 8:30 am Britany Forrest MD [Primary Care Provider] - (in 1-2 weeks) Prescriptions: Acetaminophen [Acetaminophen ER] 650 mg PO Q8H PRN #30 tablet.er PRN Reason: Mild Pain Cefepime HCl/Dextrose, Iso-Osm [Cefepime 2 gm Injection] 2 gm IV Q12H #60 froz.piggy HYDROcodone/Acet 5/325 mg [Mason 5-325 mg] 1 tab PO BID PRN #14 tablet PRN Reason: Pain Temazepam [Restoril] 15 mg PO HS PRN #14 capsule PRN Reason: Insomnia Vancomycin HCl in Dextrose 5 % [Vancomycin 750 mg/250 ml-D5w] 750 mg IV DAILY # 30 plast..bag - Attending Attestation I examined this patient and my medical decision-making was reviewed with the Resident Physician. I agree with the documented findings, disposition and treatment plan as described except to the extent set forth below.
[2016-09-09 11:32] VITALS: BP 158/90
--- NOTE | 2016-09-09 13:06 | Discharge Summary ---
Date of Encounter: 09/09/16 Time of Encounter: 09:40 - Discharge Diagnosis (1) Surgical wound infection Priority: Primary Status: Acute Qualifiers: Encounter type: initial encounter Qualified Code(s): T81.4XXA - Infection following a procedure, initial encounter (2) Anemia Priority: Secondary Status: Acute Qualifiers: Anemia type: other cause Other causes of anemia: acute posthemorrhagic Qualified Code(s): D62 - Acute posthemorrhagic anemia (3) Acute kidney injury Priority: Secondary Status: Resolved (4) Altered mental status, unspecified Priority: Secondary Status: Resolved Qualifiers: Altered mental status type: unspecified Qualified Code(s): R41.82 - Altered mental status, unspecified (5) Diabetes mellitus Priority: Secondary Status: Chronic Qualifiers: Diabetes mellitus type: type 2 Diabetes mellitus complication status: with kidney complications Diabetes mellitus complication detail: with chronic kidney disease Diabetes mellitus fpc insulin use: without fpc use Chronic kidney disease stage: stage 2 (mild) Qualified Code(s): E11.22 - Type 2 diabetes mellitus with diabetic chronic kidney disease; N18.2 - Chronic kidney disease, stage 2 (mild) (6) DVT prophylaxis Priority: Secondary Status: Acute (7) Physical deconditioning Priority: Secondary Status: Chronic (8) S/P hip hemiarthroplasty Priority: Secondary Status: Acute (9) UTI (urinary tract infection) due to Enterococcus Priority: Secondary Status: Acute - Discharge Medications Prescriptions: Acetaminophen [Acetaminophen ER] 650 mg PO Q8H PRN #30 tablet.er PRN Reason: Mild Pain Cefepime HCl/Dextrose, Iso-Osm [Cefepime 2 gm Injection] 2 gm IV Q12H #60 froz.piggy HYDROcodone/Acet 5/325 mg [[place] 5-325 mg] 1 tab PO BID PRN #14 tablet PRN Reason: Pain Temazepam [Restoril] 15 mg PO HS PRN #14 capsule PRN Reason: Insomnia Vancomycin HCl in Dextrose 5 % [Vancomycin 750 mg/250 ml-D5w] 750 mg IV DAILY # 30 plast..bag Home Medications: Metoprolol [Lopressor] 50 mg PO BID 01/15/16 [History] Calcium Carbonate/Vitamin D3 [Calcium 500 + Vit D Caplet] 1 each PO DAILY [History] Cholecalciferol (D-3) [Vitamin D] 2,000 unit PO DAILY 07/27/16 [History] Omeprazole [PriLOSEC] 40 mg PO DAILY 07/27/16 [History] Simvastatin [Zocor] 40 mg PO DAILY 07/27/16 [History] Amitriptyline [Elavil] 20 mg PO HS 09/01/16 [History] Aspirin Enteric Coated [Aspirin EC] 325 mg PO DAILY 09/01/16 [History] Citalopram Hydrobromide [Celexa] 40 mg PO DAILY 09/01/16 [History] Levothyroxine [Synthroid] 50 mcg PO 30 09/01/16 [History] Acetaminophen [Acetaminophen ER] 650 mg PO Q8H PRN #30 tablet.er 09/09/16 [Rx] Cefepime HCl/Dextrose, Iso-Osm [Cefepime 2 gm Injection] 2 gm IV Q12H #60 froz.piggy 09/09/16 [Rx] Docusate [Colace] 100 mg PO BID 09/09/16 [Rx] Ferrous Sulfate 325 mg PO BIDWM tab 09/09/16 [Rx] HYDROcodone/Acet 5/325 mg [[place] 5-325 mg] 1 tab PO BID PRN #14 tablet 09/09/16 [Rx] Insulin DETEMIR [Levemir] 10 unit SQ BID 09/09/16 [Rx] Multivit/Ca/Min/Fe/FA [Thera M Plus] 1 tab PO DAILY tab 09/09/16 [Rx] Temazepam [Restoril] 15 mg PO HS PRN #14 capsule 09/09/16 [Rx] Vancomycin HCl in Dextrose 5 % [Vancomycin 750 mg/250 ml-D5w] 750 mg IV DAILY # 30 plast..bag 09/09/16 [Rx] amLODIPine [Norvasc] 10 mg PO DAILY tab 09/09/16 [Rx] Allergies/Adverse Reactions: Allergies Oxycodone [From Percocet] Allergy (Verified 09/01/16 17:58) Itching Date of admission: 09/02/16 05:13 Primary care physician: Britany Forrest MD Consults: 09/02/16 10:18 Consult to [employer] [CONS] Routine Reason for SW Consult: Possible antibiotics after discharge 09/03/16 11:14 Consult to Occupational Therapy [CONS] Routine Comment: Evaluate, develop and implement POC Reason for Consult: eval for possible rehab Consult to Physical Therapy [CONS] Routine Comment: Evaluate, develop and implement POC Reason for Consult: eval for possible rehab 09/04/16 09:25 Consult to Infectious Diseases [CONS] Routine Consulting Provider: Mely Davis Reason for Consult: Consult requested per hospitalist. No order placed. Time Notified: 09:25 Call Completed: Yes 09/07/16 21:18 Consult to Nurse Navigator [CONS] Routine Comment: ortho navigator Consult to Occupational Therapy [CONS] Routine Comment: Evaluate, develop and implement POC Reason for Consult: total hip replacement Consult to Physical Therapy [CONS] Routine Comment: Evaluate, develop and implement POC Reason for Consult: total hip replacement Consult to [employer] [CONS] Routine Reason for SW Consult: post op joint replacement RT Post Op Consult [CONS] Routine Discharging clinician: Lola Mcqueen Anticipated date of discharge: 09/09/16 - Patient Status Disposition: Transfer SNF Condition: Good Functional capacity at discharge: uses cane/walker Overall status at discharge: patient is progressing back to baseline - Discharge Instructions Follow Up With: Debra Harkins CNP [Advanced Practice Nurse] - 09/14/16 8:30 am Britany Forrest MD [Primary Care Provider] - (in 1-2 weeks) Additional Instructions: follow up with orthopedics in 2-3 weeks - Diet and Activity Activity: as per physical therapy Diet: low fat, low cholesterol, low salt diet Hospital course: Ms. Forrest is a 76 year old female patient with a history of diabetes mellitus, hyperlipidemia, hypertension who had recently undergone a right hip replacement was admitted here with altered mental status and possible surgical wound infection. Patient was being treated for this as outpatient but did not get any better. Her outpatient wound cultures were positive for pseudomonas and MRSA. Orthopedics and infectious disease was consulted and the patient was treated with broad-spectrum antibiotics. Patient was evaluated by orthopedics and recommended continuation of IV antibiotic therapy initially. However she began to develop bloody drainage from her wound site and so patient was taken to the OR and underwent right hip arthrotomy and irrigation and debridement with exchange of femoral head and bipolar component. Wound cultures from this site are also positive for MRSA. As such infectious disease recommends treating the patient for at least 4-6 weeks with IV antibiotics. Her urine culture was positive for Enterococcus faecalis sensitive to vancomycin. At this time, the patient is clinically stable for discharge and will be discharged to alf facility. She will follow up with infectious disease in one week. She is to have her CBC, BUN, creatinine, ESR, CRP and vancomycin trough levels checked every Wednesday while she is on IV antibiotics. He should and is currently being discharged on vancomycin and cefepime. She has a PICC line for intravenous access. Patient's agitation and altered mental status appeared to be related to her history of Lewy body dementia with superimposed infectious etiology. This has now resolved. - Time Spent with Patient Total time spent providing and/or coordinating discharge services: Greater than 30 minutes (50 min) - Constitutional Vitals: Temp Pulse Resp BP Pulse Ox 97.7 F 79 16 158/90 98 09/09/16 11:29 09/09/16 11:29 09/09/16 11:29 09/09/16 11:29 09/09/16 11:29 General appearance: Present: A&O X 0, cooperative, pleasant, answers questions appropriately - Respiratory Respiratory exam: Present: CTAB. Absent: accessory muscle use, rales, rhonchi, wheezes - Cardiovascular Cardiovascular exam: Present: RRR, +S1, +S2. Absent: diastolic murmur, gallop, rubs, systolic murmur - GI/Abdominal GI/Abdominal exam: Present: normal bowel sounds, soft, no peritoneal signs. Absent: distended, tenderness - Extremities Exam Extremities exam: Present: warm, radial pulses palpable and symetrical. Absent : calf tenderness, cyanotic, pedal edema Additional comments: right hip bandaged. - VTE Documentation of Mechanical Device: Venous foot pump, device
[2016-09-09] MEDS ORDERED: amLODIPine 5 MG TABLET PO SCH (13:23)
--- NOTE | 2016-09-09 13:26 | Physician Discharge Referral ---
[facility] Referral Info Provider in Charge after Transfer: PCP Institutional Level of Care: Skilled - Diagnosis (1) Surgical wound infection Priority: Primary Status: Acute (2) Anemia Priority: Secondary Status: Acute (3) Acute kidney injury Priority: Secondary Status: Resolved (4) Altered mental status, unspecified Priority: Secondary Status: Resolved (5) Diabetes mellitus Priority: Secondary Status: Chronic (6) DVT prophylaxis Priority: Secondary Status: Acute (7) Physical deconditioning Priority: Secondary Status: Chronic (8) S/P hip hemiarthroplasty Priority: Secondary Status: Acute (9) UTI (urinary tract infection) due to Enterococcus Priority: Secondary Status: Acute - Transfer Medications Prescriptions: Acetaminophen [Acetaminophen ER] 650 mg PO Q8H PRN #30 tablet.er PRN Reason: Mild Pain Cefepime HCl/Dextrose, Iso-Osm [Cefepime 2 gm Injection] 2 gm IV Q12H #60 froz.piggy HYDROcodone/Acet 5/325 mg [[place] 5-325 mg] 1 tab PO BID PRN #14 tablet PRN Reason: Pain Temazepam [Restoril] 15 mg PO HS PRN #14 capsule PRN Reason: Insomnia Vancomycin HCl in Dextrose 5 % [Vancomycin 750 mg/250 ml-D5w] 750 mg IV DAILY # 30 plast..bag Home Medications: Metoprolol [Lopressor] 50 mg PO BID 01/15/16 [History] Calcium Carbonate/Vitamin D3 [Calcium 500 + Vit D Caplet] 1 each PO DAILY [History] Cholecalciferol (D-3) [Vitamin D] 2,000 unit PO DAILY 07/27/16 [History] Omeprazole [PriLOSEC] 40 mg PO DAILY 07/27/16 [History] Simvastatin [Zocor] 40 mg PO DAILY 07/27/16 [History] Amitriptyline [Elavil] 20 mg PO HS 09/01/16 [History] Aspirin Enteric Coated [Aspirin EC] 325 mg PO DAILY 09/01/16 [History] Citalopram Hydrobromide [Celexa] 40 mg PO DAILY 09/01/16 [History] Levothyroxine [Synthroid] 50 mcg PO 0630 09/01/16 [History] Acetaminophen [Acetaminophen ER] 650 mg PO Q8H PRN #30 tablet.er 09/09/16 [Rx] Cefepime HCl/Dextrose, Iso-Osm [Cefepime 2 gm Injection] 2 gm IV Q12H #60 froz.piggy 09/09/16 [Rx] Docusate [Colace] 100 mg PO BID 09/09/16 [Rx] Ferrous Sulfate 325 mg PO BIDWM tab 09/09/16 [Rx] HYDROcodone/Acet 5/325 mg [[place] 5-325 mg] 1 tab PO BID PRN #14 tablet 09/09/16 [Rx] Insulin DETEMIR [Levemir] 10 unit SQ BID 09/09/16 [Rx] Multivit/Ca/Min/Fe/FA [Thera M Plus] 1 tab PO DAILY tab 09/09/16 [Rx] Temazepam [Restoril] 15 mg PO HS PRN #14 capsule 09/09/16 [Rx] Vancomycin HCl in Dextrose 5 % [Vancomycin 750 mg/250 ml-D5w] 750 mg IV DAILY # 30 plast..bag 09/09/16 [Rx] amLODIPine [Norvasc] 10 mg PO DAILY tab 09/09/16 [Rx] Allergies/Adverse Reactions: Allergies Oxycodone [From Percocet] Allergy (Verified 09/01/16 17:58) Itching - Respiratory Orders Smoking Cessation: Smoking cessation has been advised. For more information, call the [employer] Quit Line at 0-765-SPRB-NOW. - Lab Orders Lab Orders: Other (include drug levels w/frequency) (CBC, basic panel, vancomycin trough level, ESR and CRP every Wednesday while receiving IV antibiotics.) - Ancillary Orders May use pressure relief devices daily prn - Advance Directives Code Status: Full Code - Mobility Orders Ambulate (per PT) - Rehabiliation Orders Rehab Potential: Fair Rehab Orders: Evaluation for Physical Therapy, Evaluation for Occupational Therapy - Diet Orders Cardiac (and diabetic) CERTIFICATION: I certify that the transfer of the above named patient to an Extended Care Facility is necessary for the continuing treatment of the diagnosis listed. The above information is true and accurate reflection of patient's current condition. Confidential - Redisclosure prohibited without a patient's written consent.
[2016-09-09] MEDS ORDERED: Aminoglycoside Consult 1 EACH MC ONE (15:38)
== END 2016-09-09 15:39 | DRG 856 ==
LOC: EMEROO 17:54 → 3NENU 17:54 → SUATTDRO 09-02 05:13
PROVIDERS: ADMIT Pediatrics; ATTEND Internal Medicine